=== PATIENT | male | born 1940 | race Caucasian/White ===

== ENCOUNTER → 2016-04-09 | Outpatient (CLI) | payer BC ==
[~2016-04-09] MED LIST: ACET-1256 PO; ASPI81TA28 PO; CLOP1TAB54 PO; DULO-24 PO; LISI-461 PO; LPT/40 PO; METO25TA3 PO; MULT-506 PO; NTRGSL/4 UT; OXYB5TAB74 PO; PRLSR20 PO
[2016-04-09 11:14] LABS: MEAN CELL VOLUME 90.9 fL (80-100); MEAN CORPUSCULAR HEMOGLOBIN 30.9 pg (25-34); MEAN PLATELET VOLUME 9.8 fL (7.4-10.4); PLATELET COUNT 222 K/uL (130-400); WHITE BLOOD COUNT 5.87 K/uL (4.8-10.8)
[2016-04-09 11:53] LABS: ALT/SGPT 27 U/L (12-78); AST/SGOT 20 U/L (15-37); BLOOD UREA NITROGEN 16 mg/dl (7-18); BUN/CREATININE RATIO 17.3 (10-20); CALCIUM 8.6 mg/dl (8.5-10.1); CARBON DIOXIDE 23 mmol/L (21-32); CHLORIDE 110 mmol/L (98-107); CREATININE 0.94 mg/dl (0.60-1.40); GLUCOSE 85 mg/dl (70-99); SODIUM 144 mmol/L (136-145)
[2016-04-09 11:55] LABS: ALB/GLOB RATIO 1.3 (0.9-2); ALKALINE PHOSPHATASE 75 U/L (45-117)
== END | disposition home or self-care (01) ==
LOC: C.LAB1850 09:28
PROVIDERS: ATTEND Internal Medicine Cardiovascular Disease
DX: I10 Essential (primary) hypertension (principal); E78.5 Hyperlipidemia, unspecified; I25.10 Atherosclerotic heart disease of native coronary artery without angina pectoris; I77.810 Thoracic aortic ectasia

== ENCOUNTER → 2016-09-08 | Outpatient (CLI) | payer BC | END | disposition home or self-care (01) | LOC: C.RDSM 10:32 | PROVIDERS: ATTEND Physical Medicine & Rehabilitation Sports Medicine | DX: Z47.1 Aftercare following joint replacement surgery (principal); Z96.653 Presence of artificial knee joint, bilateral ==

== ENCOUNTER → 2016-09-10 | Outpatient (CLI) | payer BC ==
[2016-09-10 12:19] LABS: HEMATOCRIT 41.7 % (42-52); MEAN CELL VOLUME 92.7 fL (80-100); MEAN CORPUSCULAR HEMOGLOBIN 30.2 pg (25-34); MEAN CORPUSCULAR HGB CONC 32.6 g/dl (32-36); MEAN PLATELET VOLUME 9.5 fL (7.4-10.4); PLATELET COUNT 240 K/uL (130-400); WHITE BLOOD COUNT 5.76 K/uL (4.8-10.8)
[2016-09-10 12:36] LABS: ALT/SGPT 29 U/L (12-78); AST/SGOT 20 U/L (15-37); BLOOD UREA NITROGEN 18 mg/dl (7-18); BUN/CREATININE RATIO 18.6 (10-20); CALCIUM 8.9 mg/dl (8.5-10.1); CARBON DIOXIDE 28 mmol/L (21-32); CHLORIDE 109 mmol/L (98-107); CHOLESTEROL 129 mg/dl (0-200); CREATININE 0.98 mg/dl (0.60-1.40); GLUCOSE 87 mg/dl (70-99); POTASSIUM 3.9 mmol/L (3.5-5.1); SODIUM 144 mmol/L (136-145); TRIGLYCERIDES 104 mg/dl (0-150); VERY LOW DENSITY LIPOPROT CALC 21 mg/dl
[2016-09-10 12:41] LABS: CHOLESTEROL/HDL RATIO 2.6; HDL CHOLESTEROL 50 mg/dl; LDL CHOLESTEROL CALCULATED 58 mg/dl
== END ==
LOC: C.LAB1850 09:41
PROVIDERS: ATTEND Internal Medicine Cardiovascular Disease
DX: I10 Essential (primary) hypertension (principal); E78.5 Hyperlipidemia, unspecified; I25.10 Atherosclerotic heart disease of native coronary artery without angina pectoris; I77.810 Thoracic aortic ectasia; I35.1 Nonrheumatic aortic (valve) insufficiency

== ENCOUNTER → 2016-11-18 | Outpatient (CLI) | payer BC ==
--- NOTE | 2016-11-19 05:38 | PAP/PSG TECHNICIAN REPORT ---
[facility] Heavy Forger Polysomnogram Report Study name: None Report date: 11/19/2016 Study date: 11/18/2016 Referring Physician: Wilfrid Mott M.D. Name: TYLER ALMAGUER Interpreting Physician: Michael Mott M.D. Date of : 1940 Heavy Forger: VAZQUEZ Roberson. Sex: Male Age: 76 StudyType: PSG Weight: 252 lbs Height: 76 years, Height 6' 0" Neck Circum: 18 inches BMI: 34.17 Medications: Cymbalta 60 mg, Prilosec 20 mg, Prednisone 5 mg, Metoprolol Succinate 25 mg, Nitrostat 0.4 mg, Lisinopril 10 mg, Lipitor 40 mg, Multi Vitamin, Plavix 75 mg, Aspirin 81 mg, Tylenol Extra Strength 500 mg, Oxybutynin 5 mg Patient History 76 yr. old male here for a possible split night sleep study in room 5. Patient complains of EDS, snoring, dry mouth in the mornings, and morning headaches. ESS 08/23 FOSQ 35/40 Parameters Monitored NPSG: E1-M2, E2-M1, Fp1-M2, Fp2-M1, F3-M2, F4-M2, F4-M1, C3-M2, C4-M2, C4-M1, O1-M2, O2-M2, O2-M1, T3-M2, T4-M1, P3-M2, P4-M1, CHIN1, CHIN2, HR, EKG, Legs, PFLOW, SNOR, FLOW, CFLOW, Tidal Volume, THOR, ABDO, SpO2, PLTH, CPRESS, ETCO2 Wave, ETCO2, pH Sleep Architecture Sleep Stages Time at Lights Off 10:47:16 PM STAGES Time (min.) TST (%) Time at Lights On 5:15:46 AM Wake 143.5 -- Total Recording Time (TRT) 389.50 min. N1 58.5 24 Total Sleep Period (TSP) 358.5 min. N2 158.0 64 Total Sleep Time (TST) 245.0min. N3 0.0 0 Awake Time 144.5 min. REM 28.5 12 Wake after Sleep Onset 114.0 min. Sleep Efficiency (SE) 63 % Sleep Onset Latency (TORO) 29.5 min. Number of Stage 1 Shifts None Awakenings 34 Stage Changes 120 Number of REM periods 8 REM 28.5 12 REM Latency 249.5 min. NREM 216.5 88 Body Position Analysis Supine Right Left Side Prone Vertical Total Sleep Time (min.) 233.6 42.0 55.5 97.50 0.0 0.0 Total Sleep Time (%) 60% 17% 23% 40 0% N/A% Total Sleep Time REM (min.) 16.5 0.0 12.0 None 0.0 0.0 Total Sleep Time NREM (min.) 131.0 42.0 43.5 None 0.0 0.0 Intermittent Wake (min.) 86.1 26.9 30.5 None 0.0 0.0 Total Sleep Period (%) 57% None None None None None Arousals Myoclonus (PLM) * Events Count Index Events Count Index Spontaneous 5 1 Events Awake (PLMW) 332 138.8 Respiratory 10 2.4 Events Asleep w/ Arousal (PLMA) 115 28.2 PLM 113 28 Events Asleep w/o Arousal (PLMS) 727 178.0 Snoring 1 0 Total Asleep 842 206.2 Total 129 32 Total 1,174 181 Respiratory Analysis * CA OA MA CH H RERA Total Count 3 0 2 0 56 2 61 Index 0.7 0.0 0.5 0 13.7 0 15.4 Mean Duration 21.0 0.0 12.5 0.00 23.7 31.3 23.5 Longest Duration 25.3 0.0 13.1 0.00 13.1 31.5 43.4 Respiratory Event Summary Total Supine ~Supine Right Left Prone REM NREM Apneas Count 5 5 0 0 0 N/A 2 3 Index 1.2 2 0 0.0 0.0 N/A 4 1 Hypopneas (4% Desat) Count 56 56 0 0 0 N/A 8 48 Index 13.7 22.8 0 0.0 0.0 N/A 16.8 13.3 Apneas & All Hypopneas Count 61 61 0 0 0 N/A 10 51 Index 14.9 25 0 0 0 N/A 21.1 14.1 Respiratory Events (Glass Blowing Lathe Operator+All Hyp+RERA) Count 61 63 0 0 0 N/A 10 51 Index 15.4 26 0 0.0 0.0 N/A 25.3 14.1 Respiratory Related Arousal Count 10 63 0 0 0 N/A 2 8 Index 2.4 4 0 0 0 N/A 4 2 Snoring Analysis Supine Right Left Prone REM NREM Total Snore duration 1.6 min Snores count 25 12 7 N/A 6 38 44 Snore mean duration 2.1 Sec Snores index 10 17 8 N/A 12.6 10.5 10.8 TST with snoring (%) 0.6% Desaturation Event Summary: Minimum %SpO2 Event Count Mean/Min/Max Duration(sec.) Desaturation Index % Time In Bed > 90 99 31.1 / 9.0 / 60.0 25.6 60.8 86 - 90 35 26.4 / 9.0 / 49.8 14.1 39.2 81 - 85 0 N/A 0.0 0.0 76 - 80 0 N/A 0.0 0.0 71 - 75 0 N/A 0.0 0.0 66 - 70 0 N/A 0.0 0.0 61 - 65 0 N/A 0.0 0.0 56 - 60 0 N/A 0.0 0.0 51 - 55 0 N/A 0.0 0.0 < 50 0 N/A 0.0 0.0 Total REM NREM Awake <50% 0.0 min. 0.0 min. 0.0 min. 0.0 min. 51 - 60% 0.0 min. 0.0 min. 0.0 min. 0.0 min. 61 - 70% 0.0 min. 0.0 min. 0.0 min. 0.0 min. 71 - 80% 0.0 min. 0.0 min. 0.0 min. 0.0 min. 81 - 90% 149.5 min. 9.9 min. 102.8 min. 36.7 min. 91 - 100% 231.7 min. 18.5 min. 112.8 min. 100.3 min. Average 91 91 91 92 Minimum SpO2 82 87 86 82 Desaturation Event Index 15.3 25.3 17.7 9.6 # Desat. Events below 89% 61 9 47 5 Time(%) with Saturation below 89% 12.3 1.0 9.0 2.3 Time(min.) with Saturation below 89% 46.9 3.8 34.5 8.7 Time (mins) REM (mins) NREM (mins) % of TST SpO2 Below 90% 75 12 N63 30.1 SpO2 Below 88% 28 0 0 3 Heart Rate Analysis Min (bpm) Max (bpm) Average (bpm) Awake 54 196 66 NREM 52 78 63 REM 54 70 58 Overall 52 78 63 Supplemental O2 Values Minimum O2 level: None Value Start Time End Time Heavy Forger Comments Mr. Almaguer slept in the right, left, and supine positions. Cardiac arrhythmia noted and constant PLMs noted. No bruxism noted. Snoring was noted and scored as a 1 on a scale of 0 through 5. (0=no snoring, 5=snoring loud enough to be heard through a closed door or down the [address]) Mr. Almaguer did not wake to use the restroom during the night. Mr. Almaguer stated, I did not sleep as well as I do when I am in my own bed. The final report will be interpreted and signed by a sleep physician. The completed physician report will then be placed in the patient medical record. Therapy (cm H2O) 0 TIB (min.) 388.5 TST (min.) 245.0 Sleep Onset (min.) 29.5 REM Onset From Sleep (min.) 249.5 Sleep Efficiency % 63 Wakefulness (%) 37 Wakefulness (min.) 144.5 NREM 1 (%) 24 NREM 1 (min.) 58.5 NREM 2 (%) 64 NREM 2 (min.) 158.0 NREM 3 (%) 0 NREM 3 (min.) 0.0 REM (%) 12 REM (min.) 28.5 # Arousals 129 Arousal Index 32 # Snore 44 Snore Index 10.8 AHI 14.9 AHI Supine 25 AHI Non-Supine 0 NREM AHI 14.1 REM AHI 21.1 RDI 15.4 # Obstructive Apnea 0 # Central Apnea 3 # Mixed Apnea 2 # Hypopneas 56 RERAs 2 Total Respiratory Events 70 Time Below SpO2 89% (min.) 38.3 Mean NREM SpO2 (%) 91 Mean REM SpO2 (%) 91 Mean Sleep SpO2 (%) 91 Min NREM SpO2 (%) 86 Min REM SpO2 (%) 87 Position Supine (min.) 233.6 Position Non-supine (min.) 97.5 LM Index Sleep 206.2 LM Index NREM 213.4 LM Index REM 151.6 Mean Heart Rate (bpm) 63 Min Heart Rate (bpm) 52 18
--- NOTE | 2016-12-04 09:10 | POLYSOMNOGRAPH REPORT ---
REFERRING PERSON: Dr. Anuel Mott. [employer] SAWYER: Bibiana Nelson. Mr. Gomez is a 76-year-old male sent for a possible split night sleep study. He complains of snoring, dry mouth in the morning, excessive daytime sleepiness and morning headaches. His Chandler sleepiness scale score on the evening of this study is 6. BMI is 34.17. Following the technical and digital specifications of the [employer] (AASM) a standard diagnostic polysomnogram was performed monitoring EEG, EOG, EMG (chin and leg deviations), oxygen saturation, body position, digital video, respiratory effort and airflow. The sleep Stage and event scoring was based on the AASM Manual for the Scoring of Sleep and Associated Events 2007 edition. Apneas are defined as a drop in the peak thermal sensor excursion by >90% of baseline for at least 10 seconds. Hypopneas were scored using the 4% oxygen desaturation rule (4A-[employer]) and a decrease in the nasal pressure excursions by >30% of baseline for at least 10 seconds. Respiratory effort-related arousal (RERA's) is defined as a sequence of breaths lasting at least 10 seconds characterized by increasing respiratory effort or flattening of the nasal pressure waveform leading to an arousal from sleep when the sequence of breaths does not meet criteria for an apnea or hypopnea. Apnea Hypopnea index (AHI) is defined as the number of apneas and hypopneas occurring in an hour of sleep. Respiratory disturbance index (RDI) is defined as the number of apneas, hypopneas, and RERA's occurring in an hour of sleep. Mr. Gomez's total sleep period time was 358.5 minutes. Total sleep time was 245 minutes. Sleep efficiency was 63%. Latency to sleep onset was 29.5 minutes with wake after sleep onset of 114 minutes. Total non-REM sleep time was 216.5 minutes. He spent 24% of that time in N1 sleep, 64% in N2 sleep and no time in N3 sleep. REM latency was 249.5 minutes. Total REM sleep time was 28.5 minutes or 12% of total sleep time. There were 129 cortical arousals from sleep. One of these arousals was due to snoring, 113 were due to periodic limb movements and 10 were due to respiratory events. The remaining 5 were spontaneous. There were 842 periodic limb movements noted on this test. Limb movement index was 206.2. Limb movement with arousal index was 28.2. This may be significant, but in light of sleep disordered breathing on the study, it may be secondary to that. There were 3 central, no obstructive, and 2 mixed apnea on this test. There were 56 hypopneas. Apnea-hypopnea index was 14.9. This is consistent with mild to moderate sleep apnea. Supine AHI was 25. REM AHI was 21.1. There were 44 snoring events recorded on this test. Total sleep time with snoring was 0.6%. Mean saturation was 91% with desaturations to 82%. Saturations were less than 89% for 46.9 minutes of recorded time. There was no cardiac ectopy noted on this study. Heart rates ranged from a low of 52 beats per minute to a high of 78 beats per minute. IMPRESSION AND PLAN: A 76-year-old male with mild to moderate sleep apnea and significant nocturnal hypoxemia on this study. 1. The patient would likely benefit from positive airway pressure therapy. He should return to the sleep lab for a full night titration and then based on those results, he will be started on an equipment at home. A download from his machine can be reviewed in 1 month both to check compliance as well as AHI and further pressure adjustments can occur at that time. 2. Should this sleep disordered breathing and nocturnal hypoxemia be treated and this patient continued to have excessive daytime sleepiness, this patient may benefit from treatment of his periodic limb movements of sleep as they did cause significant arousals. He should decrease on titration study as the sleep disorder breathing decreases. [facility]
== END | disposition home or self-care (01) ==
LOC: C.NEUR 21:00
PROVIDERS: ATTEND Family Medicine
DX: G47.33 Obstructive sleep apnea (adult) (pediatric) (principal); R06.83 Snoring; G47.10 Hypersomnia, unspecified

== ENCOUNTER → 2017-04-27 | Outpatient (CLI) | payer BC ==
[~2017-04-27] MED LIST changes: +DTR/5 PO; -OXYB5TAB74 PO
[2017-04-27 11:57] LABS: HEMATOCRIT 41.2 % (42-52); HEMOGLOBIN 13.6 g/dL (14.0-18.0); MEAN CELL VOLUME 91.4 fL (80-100); MEAN CORPUSCULAR HEMOGLOBIN 30.2 pg (25-34); MEAN PLATELET VOLUME 10.2 fL (7.4-10.4); PLATELET COUNT 230 K/uL (130-400); RED CELL DISTRIBUTION WIDTH CV 14.5 % (11.5-14.5); RED CELL DISTRIBUTION WIDTH SD 48.7 fL (36.4-46.3); WHITE BLOOD COUNT 6.07 K/uL (4.8-10.8)
[2017-04-27 12:08] LABS: ALT/SGPT 29 U/L (12-78); AST/SGOT 18 U/L (15-37); BLOOD UREA NITROGEN 17 mg/dl (7-18); CALCIUM 8.9 mg/dl (8.5-10.1); CARBON DIOXIDE 27 mmol/L (21-32); GLUCOSE 84 mg/dl (70-99); POTASSIUM 3.7 mmol/L (3.5-5.1); SODIUM 142 mmol/L (136-145)
== END | disposition home or self-care (01) ==
LOC: C.LAB1850 09:56
PROVIDERS: ATTEND Internal Medicine Cardiovascular Disease
DX: I10 Essential (primary) hypertension (principal); E78.5 Hyperlipidemia, unspecified; I25.10 Atherosclerotic heart disease of native coronary artery without angina pectoris; R53.83 Other fatigue; I77.810 Thoracic aortic ectasia; I35.1 Nonrheumatic aortic (valve) insufficiency

== ENCOUNTER 2022-03-23 12:32 | Inpatient (IN) ==
[2022-03-23] MEDS ORDERED: ONDANSETRON INJ 2 MG/ML 2 ML VIAL IV STA (12:54)
[2022-03-23] MEDS ORDERED: MoRPHine SULFATE 4 MG/ML 1 ML CARP\\VIAL IV STA (12:54)
[2022-03-23] MEDS ORDERED: SODIUM CHLORIDE 0.9% 1000ML 1,000 ML IV STA (12:54)
--- NOTE | 2022-03-23 13:08 | Emergency Department Note ---
Impression & Plan Intractable nausea and vomiting, Dizziness ADMIT ED Provider Note HPI: The patient is a 81-year-old male who presents the emergency department chief complaint of intractable nausea and vomiting. Patient was seen here on 18 March for similar symptoms, at that time CT imaging of the abdomen pelvis was within normal limits and patient was ultimately discharged home. Patient was recently admitted this past January to [facility] where he had surgery on his lumbar spine, inpatient admission was complicated by pulmonary embolism for which the patient received a thrombectomy and IVC filter, he is currently on anticoagulation with Eliquis. On arrival here to the ED the patient is alert, he is in no acute distress on my initial evaluation, states he has had difficulty with p.o. intake since about last Thursday (1 week ago). He states his symptoms seem to have improved somewhat on and Thursday and that it worsened over the weekend. On arrival here to the ED the patient does not display any focal deficits, he is hemodynamically stable and otherwise in no acute distress. ROS: - Per HPI *Outpatient medications and allergy history reviewed. *Pertinent external medical records reviewed. 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, there is slight ataxia on the right side on [id number] testing, left side intact 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: - An order was placed for continuous cardiac monitoring - Patient was noted to be in sinus rhythm with a rate of 80 EKG: (As interpreted by myself): Rate: 84 Rhythm: Normal sinus rhythm Intervals: QTC prolongation at 503 ms, otherwise within normal limits ST changes: No ST elevation Time: 1301 Interventions provided in ED: -Meclizine, IV fluid bolus, IV morphine, IV Zofran NIH STROKE SCALE: 1A: Level of consciousness Alert; keenly responsive 0 1B: Ask month and age Both questions right 0 1C: 'Blink eyes' & 'squeeze hands' Performs both tasks 0 2: Horizontal extraocular movements Normal 0 3: Visual shaver No visual loss 0 4: Facial palsy Normal symmetry 0 5A: Left arm motor drift No drift for 10 seconds 0 5B: Right arm motor drift No drift for 10 seconds 0 6A: Left leg motor drift No drift for 5 seconds 0 6B: Right leg motor drift No drift for 5 seconds 0 7: Limb Ataxia Ataxia in 1 Limb +1 8: Sensation Normal; no sensory loss 0 9: Language/aphasia Normal; no aphasia 0 10: Dysarthria Normal 0 11: Extinction/inattention No abnormality 0 TOTAL NIH SCORE = 1 Medical Decision Making: Patient presented to the emergency department chief complaint of nausea and vomiting this is ongoing for about the past week. Patient also states he has had some dizziness. This was a complaint as well on 03/18, CT imaging of the head at that time was negative. On my examination here in the ED, patient did display some ataxia on [id number] testing on the right side. He states his symptoms of dizziness are mostly positional in nature, does mention specifically that when he gets out of bed too quickly or when he rolls from one side to the other his symptoms seem to acutely worsen and worsen his nausea as well. CT imaging of the abdomen pelvis was obtained that does not show any evidence of any acute surgical process, no evidence of bowel obstruction. Patient's lab work does not show any BRITTON, there is ketonuria, he does have a slight metabolic acidosis likely secondary to his fluid losses. On my reassessment patient states he is feeling much improved following IV fluids here in the ED, his is very concerned about his intractable nausea and vomiting in addition to his dizziness recently, CT imaging of the head on 03/18 was reassuring however given the persistence of his symptoms I did discuss MRI imaging to rule out possible central process for his dizziness as well as nausea and vomiting such as posterior circulation stroke. He would not be a candidate for aggressive therapy at this point as he has been symptomatic for about the past 7 days. They would like to proceed with MRI imaging. MRI was therefore ordered. Patient's family states that he has not been doing well since he left [facility], his symptoms have markedly worsened since this past Thursday, continues with dizziness, nausea and vomiting, they state that he is not able to ambulate well at home and can only go short distances with his walker. Patient's and daughter at the bedside states that they do not feel that they are able to take care of him appropriately at home and he would benefit from PT/OT and admission regardless of MRI result. He states he does feel improved following IV fluids, meclizine, as well as morphine and Zofran. Of note, his urinalysis does not show any evidence of infection. Case was therefore discussed with the on-call hospitalist service for [facility] in [place]. Patient was placed for admission in stable condition. Disposition discussion held by myself with: Patient, at the bedside, daughter at the bedside Diagnosis: 1. Intractable nausea and vomiting 2. Episodic vertigo 3. Ambulatory dysfunction 4. Ketonuria 5. Metabolic acidosis, mild Disposition: ADMIT Jose Luis Victoria, DO Emergency Medicine Past Med/Surg History Medical History Anemia Aortic regurgitation CAD (coronary artery disease) Dilated aortic root Diverticulosis GERD (gastroesophageal reflux disease) History of myocardial infarction 01/2011 - follows w/ Dr. Macdonald History of nephritis as a child Hyperlipidemia Hypertension Idiopathic peripheral neuropathy Irregular heart beat Obesity Obstructive sleep apnea CPAP Osteoarthritis Overactive bladder Peripheral neuropathy Pulmonary embolus Seizure-like activity 35 years ago - 2 convulsive episodes following outpatient surgery (excision pilonidal cyst) -- says he followed with neurologist x 6 months; seizure work up was neg -- no issues since Spinal stenosis cervical and lumbar Surgical History History of anesthesia reaction 35 years ago - 2 convulsive episodes following outpatient surgery (excision pilonidal cyst) -- says he followed with neurologist x 6 months; seizure work up was neg -- no issues since History of arthroscopy of both knees History of cardiac cath 2010 - [facility] - stents x 2 History of colonoscopy History of excision of mass Rt axillary - benign History of heart artery stent x 2 History of surgical removal of pilonidal cyst History of thumb surgery Rt Hx of laminectomy S/p bilateral carpal tunnel release S/P left rotator cuff repair S/P tonsillectomy S/P total knee arthroplasty BL Family History Father Gastric cancer PONV (postoperative nausea and vomiting) Mother Lymphoma Colon cancer Brother Prostate cancer PONV (postoperative nausea and vomiting) Social History Smoking Status: Former smoker Tobacco Type: Cigars Second Hand Exposure: No; Hx Alcohol Use: Yes Alcohol type: beer Hx Substance Use: No Preferred Language: Citizen Of [place] Communication Ability: Effective 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 Beliefs That Will Affect Care: None marital status: Current Living Situation: Spouse current occupational status: retired Feels Safe at Home: Yes Assistive Devices: Cane, CPAP and Glasses Allergies Allergies Allergy/AdvReac Type Severity Reaction Status Date / Time Sulfa (Sulfonamide Allergy Intermediate rash Verified 03/23/22 16:15 Antibiotics) Home Meds Home Medications Medication Instructions Recorded Confirmed amoxicillin 500 mg capsule 2,000 mg PO DIRECTED PRN DENTAL 11/20/18 03/23/22 APPOINTMENTS duloxetine 60 mg capsule,delayed 60 mg PO QAM 11/20/18 03/23/22 release metoprolol succinate 25 mg 25 mg PO QAM #90 tabs 11/20/18 03/23/22 tablet,extended release 24 hr nitroglycerin 0.4 mg sublingual 0.4 mg sublingual Q5M PRN chest 11/20/18 03/23/22 tablet pain #25 tabs multivitamin (Daily Multi-Vitamin 1 tab PO QAM 01/03/19 03/23/22 tablet) pantoprazole 40 mg tablet,delayed 40 mg PO QAM 05/18/20 03/23/22 release finasteride 5 mg tablet 5 mg PO QAM 09/05/21 03/23/22 acetaminophen 500 mg tablet 500 mg PO AMHS 11/15/21 03/23/22 (Tylenol Extra Strength) clopidogrel 75 mg tablet 75 mg PO QAM 02/15/22 03/23/22 tizanidine 4 mg tablet 4 mg PO DIRECTED PRN MUSCLE 02/15/22 03/23/22 SPASMS apixaban 5 mg tablet (Eliquis) 5 mg PO BID 03/18/22 03/23/22 diclofenac sodium 1 % topical gel 2 g topical QID 03/18/22 03/23/22 lisinopril 5 mg tablet 5 mg PO QAM 03/18/22 03/23/22 melatonin 3 mg tablet 3 mg PO HS 03/18/22 03/23/22 scopolamine base 1 mg over 3 days 1 patch transdermal Q3D PRN 03/18/22 03/23/22 transdermal patch NEEDED atorvastatin 40 mg tablet 40 mg PO HS 03/23/22 03/23/22 Previous Rx's Medication Instructions Recorded ondansetron 4 mg disintegrating 4 mg PO Q8H PRN nausea and 03/18/22 tablet vomiting #30 tabs Results & Data (ED) Vital Signs Vital Signs - 24 hr 03/23/22 12:42 03/23/22 13:09 03/23/22 12:38 Temperature 36.7 C Temperature Source Oral Pulse Rate 98 H 96 H Pulse Rate from SpO2 Sensor 96 H Pulse Rhythm Regular Pulse Strength Normal Respiratory Rate 30 H 18 Respiratory Effort / Characteristics Non-Labored Spontaneous Respiratory Depth Normal Respiratory Pattern Regular Blood Pressure Blood Pressure Mean Pulse Oximetry 97 98 98 Oxygen Delivery Method Room Air Room Air Oxygen Flow Rate 0 Sepsis Recent Fever Within 48 Hours No Sepsis New/Unexplained Change in Mental Status N/A Sepsis Action Taken by Nursing No Action Required 03/23/22 13:00 03/23/22 13:30 03/23/22 14:00 Temperature Temperature Source Pulse Rate 88 80 84 Pulse Rate from SpO2 Sensor 83 85 Pulse Rhythm Pulse Strength Respiratory Rate 31 H 14 14 Respiratory Effort / Characteristics Respiratory Depth Respiratory Pattern Blood Pressure Blood Pressure Mean Pulse Oximetry 98 93 Oxygen Delivery Method Oxygen Flow Rate Sepsis Recent Fever Within 48 Hours Sepsis New/Unexplained Change in Mental Status Sepsis Action Taken by Nursing 03/23/22 14:30 03/23/22 14:36 03/23/22 14:36 Temperature Temperature Source Pulse Rate 81 87 Pulse Rate from SpO2 Sensor 81 85 Pulse Rhythm Pulse Strength Respiratory Rate 14 19 Respiratory Effort / Characteristics Respiratory Depth Respiratory Pattern Blood Pressure 124/85 Blood Pressure Mean 98 Pulse Oximetry 93 97 Oxygen Delivery Method Oxygen Flow Rate Sepsis Recent Fever Within 48 Hours Sepsis New/Unexplained Change in Mental Status Sepsis Action Taken by Nursing 03/23/22 15:00 03/23/22 15:00 03/23/22 15:30 Temperature Temperature Source Pulse Rate 81 Pulse Rate from SpO2 Sensor 82 Pulse Rhythm Pulse Strength Respiratory Rate 17 Respiratory Effort / Characteristics Respiratory Depth Respiratory Pattern Blood Pressure 145/80 H 127/82 Blood Pressure Mean 101 97 Pulse Oximetry 97 Oxygen Delivery Method Oxygen Flow Rate Sepsis Recent Fever Within 48 Hours Sepsis New/Unexplained Change in Mental Status Sepsis Action Taken by Nursing 03/23/22 15:30 03/23/22 16:00 03/23/22 16:00 Temperature Temperature Source Pulse Rate 87 86 Pulse Rate from SpO2 Sensor 87 Pulse Rhythm Pulse Strength Respiratory Rate 20 17 Respiratory Effort / Characteristics Respiratory Depth Respiratory Pattern Blood Pressure 137/84 Blood Pressure Mean 101 Pulse Oximetry 99 Oxygen Delivery Method Oxygen Flow Rate Sepsis Recent Fever Within 48 Hours Sepsis New/Unexplained Change in Mental Status Sepsis Action Taken by Nursing 03/23/22 16:30 03/23/22 16:31 03/23/22 16:31 Temperature Temperature Source Pulse Rate 87 85 Pulse Rate from SpO2 Sensor Pulse Rhythm Pulse Strength Respiratory Rate 13 14 Respiratory Effort / Characteristics Respiratory Depth Respiratory Pattern Blood Pressure 98/52 L Blood Pressure Mean 67 Pulse Oximetry Oxygen Delivery Method Oxygen Flow Rate Sepsis Recent Fever Within 48 Hours Sepsis New/Unexplained Change in Mental Status Sepsis Action Taken by Nursing Laboratory Data 03/23/22 12:45 03/23/22 12:45 Lab Results 03/23/22 03/23/22 03/23/22 Range/Units 12:45 12:45 13:30 WBC 5.61 (4.8-10.8) K/ul RBC 4.02 L (4.63-6.08) M/uL Hgb 12.0 L (14.0-18.0) g/dl Hct 34.7 L (40.1-51.0) % MCV 86.3 (80.0-100.0) fL MCH 29.9 (25.0-34.0) pg MCHC 34.6 (32.0-36.0) g/dL RDW Std Deviation 44.2 (36.4-46.3) fL RDW Coeff of Ifeanyi 14.2 (11.5-14.5) % Plt Count 241 (130-400) K/uL MPV 9.4 (9.4-12.4) fL Immature Gran % (Auto) 0.7 % Neut % (Auto) 62.6 % Lymph % (Auto) 24.8 % [place] % (Auto) 10.0 % Eos % (Auto) 1.4 % Baso % (Auto) 0.5 % Neut # (Auto) 3.51 (1.4-6.5) K/uL Lymph # (Auto) 1.39 (1.2-3.4) K/uL [place] # (Auto) 0.56 (0.24-0.82) K/uL Eos # (Auto) 0.08 (0-0.50) K/uL Baso # (Auto) 0.03 (0-0.2) K/uL Immature Gran # (Auto) 0.04 H (0.00-0.02) K/uL Sodium 139 (136-145) mmol/L Potassium 3.6 (3.5-5.1) mmol/L Chloride 107 (98-107) mmol/L Carbon Dioxide 19 L (21-32) mmol/L Anion Gap 13 H (3-11) BUN 12 (6-23) mg/dl Creatinine 0.87 (0.6-1.4) mg/dl Est Cr Clr Drug Dosing 85.9 ml/min Est GFR ( Amer) 95.1 ml/min Est GFR (Non-Af Amer) 82.1 ml/min BUN/Creatinine Ratio 13.8 (10-20) Glucose 110 H (70-99(Fasting)) mg/dl Lactate (0.4-2.0) mmol/L Calcium 9.0 (8.5-10.1) mg/dl Total Bilirubin 0.9 (0.2-1.0) mg/dl AST 17 (13-39) U/L ALT 14 (7-52) U/L Alkaline Phosphatase 85 (34-104) U/L Troponin I High Sens 16.3 (0-20) pg/ml Total Protein 6.2 (6.0-8.3) gm/dl Albumin 3.9 (3.4-5.0) gm/dl Globulin 2.3 L (2.5-4.0) gm/dl Albumin/Globulin Ratio 1.7 (0.9-2) Lipase 22 (11-82) U/L Urine Color Dark Yellow Urine Appearance Clear (Clear) Urine pH 6.5 (4.5-7.5) Ur Specific [place] 1.023 (1.000-1.030) Urine Protein 1+ H (Negative) Urine Glucose (UA) Negative (Negative) Urine Ketones 3+ H (Negative) Urine Blood Negative (Negative) Urine Nitrite Negative (Negative) Urine Bilirubin Negative (Negative) Urine Urobilinogen Negative (Negative) Ur Leukocyte Esterase 1+ H (Negative) Urine WBC (Auto) 10-30 H (0-5) /hpf Urine RBC (Auto) 0-4 (0-4) /hpf U Hyaline Cast (Auto) 1-5 (0-5) /lpf U Epithel Cells (Auto) 5-10 H (0-5) /lpf Urine Bacteria (Auto) 1+ H (Negative) Ur Renal Epithelial Cell Not Reportable Urine Mucus Present A (None Prsent) SARS-CoV-2, RNA, NAAT (NEGATIVE) 03/23/22 03/23/22 Range/Units 14:51 16:14 WBC (4.8-10.8) K/ul RBC (4.63-6.08) M/uL Hgb (14.0-18.0) g/dl Hct (40.1-51.0) % MCV (80.0-100.0) fL MCH (25.0-34.0) pg MCHC (32.0-36.0) g/dL RDW Std Deviation (36.4-46.3) fL RDW Coeff of Ifeanyi (11.5-14.5) % Plt Count (130-400) K/uL MPV (9.4-12.4) fL Immature Gran % (Auto) % Neut % (Auto) % Lymph % (Auto) % [place] % (Auto) % Eos % (Auto) % Baso % (Auto) % Neut # (Auto) (1.4-6.5) K/uL Lymph # (Auto) (1.2-3.4) K/uL [place] # (Auto) (0.24-0.82) K/uL Eos # (Auto) (0-0.50) K/uL Baso # (Auto) (0-0.2) K/uL Immature Gran # (Auto) (0.00-0.02) K/uL Sodium (136-145) mmol/L Potassium (3.5-5.1) mmol/L Chloride (98-107) mmol/L Carbon Dioxide (21-32) mmol/L Anion Gap (3-11) BUN (6-23) mg/dl Creatinine (0.6-1.4) mg/dl Est Cr Clr Drug Dosing ml/min Est GFR ( Amer) ml/min Est GFR (Non-Af Amer) ml/min BUN/Creatinine Ratio (10-20) Glucose (70-99(Fasting)) mg/dl Lactate 1.0 (0.4-2.0) mmol/L Calcium (8.5-10.1) mg/dl Total Bilirubin (0.2-1.0) mg/dl AST (13-39) U/L ALT (7-52) U/L Alkaline Phosphatase (34-104) U/L Troponin I High Sens (0-20) pg/ml Total Protein (6.0-8.3) gm/dl Albumin (3.4-5.0) gm/dl Globulin (2.5-4.0) gm/dl Albumin/Globulin Ratio (0.9-2) Lipase (11-82) U/L Urine Color Urine Appearance (Clear) Urine pH (4.5-7.5) Ur Specific [place] (1.000-1.030) Urine Protein (Negative) Urine Glucose (UA) (Negative) Urine Ketones (Negative) Urine Blood (Negative) Urine Nitrite (Negative) Urine Bilirubin (Negative) Urine Urobilinogen (Negative) Ur Leukocyte Esterase (Negative) Urine WBC (Auto) (0-5) /hpf Urine RBC (Auto) (0-4) /hpf U Hyaline Cast (Auto) (0-5) /lpf U Epithel Cells (Auto) (0-5) /lpf Urine Bacteria (Auto) (Negative) Ur Renal Epithelial Cell Urine Mucus (None Prsent) SARS-CoV-2, RNA, NAAT NEGATIVE (NEGATIVE) Administered Medications Discontinued Medications Sodium Chloride (Nss 1000ml) 1,000 mls @ 999 mls/hr IV .Q1H1M STA Stop: 03/23/22 13:54 Last Infusion: 03/23/22 14:15 Dose: 0 mls/hr Documented By: Admin: 03/23/22 13:04 Dose: 999 mls/hr Documented By: AM Ioversol (Optiray 350 100ml) 91 ml IV ONCE ONE Stop: 03/23/22 14:12 Last Admin: 03/23/22 14:12 Dose: 91 ml Documented By: ALISA Meclizine HCl (Meclizine Hcl 25 Mg Tab) 25 mg PO NOW STA Stop: 03/23/22 15:13 Last Admin: 03/23/22 15:41 Dose: 25 mg Documented By: AM Morphine Sulfate (Morphine Sulfate 4 Mg/Ml 1 Ml Carp\Vial) 4 mg IV NOW STA Stop: 03/23/22 12:55 Last Admin: 03/23/22 13:03 Dose: 4 mg Documented By: AM Ondansetron HCl (Ondansetron Inj 2 Mg/Ml 2 Ml Vial) 4 mg IV NOW STA Stop: 03/23/22 12:55 Last Admin: 03/23/22 13:01 Dose: 4 mg Documented By: AM Imaging Data Radiologist's Impression: Abdomen/Pelvis CT 03/23/22 13:[address] WITH IV CONTRAST CT DOSE: 706.87 mGy.cm HISTORY: Acute abdominal pain with nausea and vomiting N/V, worsening this week TECHNIQUE: Multiaxial CT images of the abdomen and pelvis were performed following the IV administration of 91 cc of Optiray, A dose lowering technique was utilized adhering to the principles of ALARA. COMPARISON STUDY: March 18, 2022 FINDINGS: Coronary artery calcifications. Mild subsegmental bibasilar atelectasis versus scarring. No pneumatosis or pneumoperitoneum. Calcified gran uloma of the basal left lower lobe. Unremarkable spleen, mildly trophic pancreas and adrenal glands. The gallbladder is within normal limits. Unchanged appearance of the liver. Indeterminate ill-defined 1.4 cm hypodense lesion of the right hepatic lobe on image 16 series 2 with hepatic dome cysts. Patency of the hepatic and portal veins. There are a few cysts of the bilateral kidneys redemonstrated along with several punctate nonobstructing bilateral renal calculi. There is an enhancing 1.8 cm mass the interpolar aspect of the right kidney laterally. No ureteral calculi or hydronephrosis. Decompressed or bladder with wall thickening and Rankin catheter in place. Air is also noted within the urinary bladder lumen. Prostamegaly. Mild perivesicular stranding. Atherosclerosis of the aorta. Infrarenal IVC filter. No lymphadenopathy identified. Tiny hiatal hernia. No bowel obstruction or bowel wall thickening. Colonic diverticulosis. The appendix is not well visualized. No secondary signs of acute appendicitis. Laminectomy changes of the lumbar spine redemonstrated at L2-L5. Fluid collection within the operative bed. Similar to the prior study measuring up to 14.5 cm in craniocaudal dimension. Unchanged grade 1 anterolisthesis L4 on L5 with chronic pars defects. IMPRESSION: 1. Stable exam compared to the 03/18/2022 study. 2. Rankin catheter within a decompressed or bladder again noted. Prostamegaly with urinary bladder wall thickening is again suggestive of chronic bladder outlet obstruction. Correlate with urinalysis to exclude cystitis. 3. No bowel obstruction or bowel wall thickening. 4. 1.8 cm right renal lesion suggestive of renal cell carcinoma again noted. 5. Nonobstructing bilateral nephrolithiasis. ACT 112: Negative or not required by law. The above report was generated using voice recognition software. It may contain grammatical, syntax or spelling errors. Electronically signed by: Jameson Stratton M.D. 03/23/2022 2:38 PM Discharge Plan Visit Data Chief Complaint: Vomiting Stated Complaint: NAUSEA, VOMITING ED Provider: Jose Luis Victoria Discharge Problem: Intractable nausea and vomiting, Dizziness Forms Stand Alone Forms: [facility] [place] FriendCode Prescriptions Prescriptions: No Action acetaminophen [Tylenol Extra Strength] 500 mg tablet 500 mg PO AMHS nitroglycerin 0.4 mg tablet, sublingual 0.4 mg SL Q5M PRN (Reason: chest pain) Qty: 25 duloxetine 60 mg capsule,delayed release(DR/EC) 60 mg PO QAM metoprolol succinate 25 mg tablet extended release 24 hr 25 mg PO QAM Qty: 90 amoxicillin 500 mg capsule 2,000 mg PO DIRECTED PRN (Reason: DENTAL APPOINTMENTS) multivitamin [Daily Multi-Vitamin] tablet 1 tab PO QAM pantoprazole 40 mg Tablet,Delayed Release (Dr/Ec) 40 mg PO QAM finasteride 5 mg tablet 5 mg PO QAM tizanidine 4 mg tablet 4 mg PO DIRECTED PRN (Reason: MUSCLE SPASMS) clopidogrel 75 mg tablet 75 mg PO QAM melatonin 3 mg Tablet 3 mg PO HS lisinopril 5 mg tablet 5 mg PO QAM scopolamine base 1 mg over 3 days Patch 3 Day 1 patch TRANSDERMAL Q3D PRN (Reason: NEEDED) diclofenac sodium [Voltaren] 1 % Gel 2 g TOPICAL QID Eliquis 5 mg tablet 5 mg PO BID ondansetron 4 mg tablet,disintegrating 4 mg PO Q8H PRN (Reason: nausea and vomiting) Qty: 30 0RF atorvastatin 40 mg tablet 40 mg PO HS Referrals Referrals: Chidi Steele DO [Primary Care Provider] -
[2022-03-23 13:18] LABS: Basophils # (auto) 0.03 K/uL (0-0.2); Basophils % (auto) 0.5 %; Eosinophils # (auto) 0.08 K/uL (0-0.50); Eosinophils % (auto) 1.4 %; Hematocrit (blood only) 34.7 % (40.1-51.0); Immature Granulocytes # (auto) 0.04 K/uL (0.00-0.02); Immature Granulocytes % (auto) 0.7 %; Lymphocytes # (auto) 1.39 K/uL (1.2-3.4); Lymphocytes % (auto) 24.8 %; Mean Corpuscular Hemoglobin 29.9 pg (25.0-34.0); Mean Corpuscular Hgb Conc 34.6 g/dL (32.0-36.0); Mean Corpuscular Volume 86.3 fL (80.0-100.0); Mean Platelet Volume 9.4 fL (9.4-12.4); Monocytes # (auto) 0.56 K/uL (0.24-0.82); Neutrophils # (auto) 3.51 K/uL (1.4-6.5); Neutrophils % (auto) 62.6 %; Platelet Count 241 K/uL (130-400); RDW Coefficient of Variation 14.2 % (11.5-14.5); RDW Standard Deviation 44.2 fL (36.4-46.3); Red Blood Count 4.02 M/uL (4.63-6.08); White Blood Count 5.61 K/ul (4.8-10.8)
[2022-03-23 13:36] LABS: Albumin Level 3.9 gm/dl (3.4-5.0); Bilirubin,Total 0.9 mg/dl (0.2-1.0); Potassium 3.6 mmol/L (3.5-5.1)
[2022-03-23 13:42] LABS: Albumin Globulin Ratio 1.7 (0.9-2); BUN Creatinine Ratio 13.8 (10-20); Creatinine Clr Calc Pharmacy 85.9 ml/min; Est GFR (African American) 95.1 ml/min; Est GFR (Non-African American) 82.1 ml/min; Globulin 2.3 gm/dl (2.5-4.0); Total Protein 6.2 gm/dl (6.0-8.3)
[2022-03-23 13:43] LABS: Appearance Urine Clear (Clear); Bilirubin Urine Negative (Negative); Blood Urine Negative (Negative); Color Urine Dark Yellow; Glucose Urine UA Negative (Negative); Ketones Urine 3+ (Negative); Leukocyte Esterase Urine 1+ (Negative); Nitrite Urine Negative (Negative); Protein Urine 1+ (Negative); Specific Gravity Urine 1.023 (1.000-1.030); Urobilinogen Urine Negative (Negative); pH Urine 6.5 (4.5-7.5)
[2022-03-23 13:48] LABS: Troponin I High Sensitivity 16.3 pg/ml (0-20)
[2022-03-23 13:55] LABS: Bacteria Urine Automated 1+ (Negative); Mucus Urine Present (None Prsent); RBC Urine Automated 0-4 /hpf (0-4)
[2022-03-23] MEDS ORDERED: OPTIRAY 350 100ml IV ONE (14:11)
--- NOTE | 2022-03-23 14:40 | CT Scan Report ---
ABDOMEN AND PELVIS CT WITH IV CONTRAST CT DOSE: 706.87 mGy.cm HISTORY: Acute abdominal pain with nausea and vomiting N/V, worsening this week TECHNIQUE: Multiaxial CT images of the abdomen and pelvis were performed following the IV administrat ion of 91 cc of Optiray, A dose lowering technique was utilized adhering to the principles of ALARA. COMPARISON STUDY: March 18, 2022 FINDINGS: Coronary artery calcifications. Mild subsegmental bibasilar atelectasis versus scarring. No pneumatosis or pneumoperitoneum. Calcified granuloma of the basal left lower lobe. Unremarkable sple en, mildly trophic pancreas and adrenal glands. The gallbladder is within normal limits. Unchanged ap pearance of the liver. Indeterminate ill-defined 1.4 cm hypodense lesion of the right hepatic lobe on image 16 series 2 with hepatic dome cysts. Patency of the hepatic and portal veins. There are a few cysts of the bilateral kidneys redemonstrated along with several punctate nonobstruct ing bilateral renal calculi. There is an enhancing 1.8 cm mass the interpolar aspect of the right kid kari laterally. No ureteral calculi or hydronephrosis. Decompressed or bladder with wall thickening an d Rankin catheter in place. Air is also noted within the urinary bladder lumen. Prostamegaly. Mild per ivesicular stranding. Atherosclerosis of the aorta. Infrarenal IVC filter. No lymphadenopathy identif ied. Tiny hiatal hernia. No bowel obstruction or bowel wall thickening. Colonic diverticulosis. The append ix is not well visualized. No secondary signs of acute appendicitis. Laminectomy changes of the lumba r spine redemonstrated at L2-L5. Fluid collection within the operative bed. Similar to the prior stud y measuring up to 14.5 cm in craniocaudal dimension. Unchanged grade 1 anterolisthesis L4 on L5 with chronic pars defects. IMPRESSION: 1. Stable exam compared to the 03/18/2022 study. 2. Rankin catheter within a decompressed or bladder again noted. Prostamegaly with urinary bladder wal l thickening is again suggestive of chronic bladder outlet obstruction. Correlate with urinalysis to exclude cystitis. 3. No bowel obstruction or bowel wall thickening. 4. 1.8 cm right renal lesion suggestive of renal cell carcinoma again noted. 5. Nonobstructing bilateral nephrolithiasis. ACT 112: Negative or not required by law. The above report was generated using voice recognition software. It may contain grammatical, syntax o r spelling errors. Electronically signed by: Jameson Stratton M.D. 03/23/2022 2:38 PM
[2022-03-23] MEDS ORDERED: MECLIZINE HCL 25 MG TAB PO STA (15:12)
[2022-03-23] MEDS ORDERED: ASPIRIN CHEW 324 MG PO STA (16:32)
--- NOTE | 2022-03-23 16:51 | History & Physical Report ---
Date of Service March 23, 2022 Assessment & Plan (1) Dizziness: (2) Intractable nausea and vomiting: (3) CVA (cerebral vascular accident): Plan: Patient is 81-year-old male with PMH HTN, dyslipidemia, CAD s/p stent, BPH, GERD, MARYCARMEN, lumbar degenerative disc disease with spinal stenosis with cauda equina syndrome s/p L2-L5 decompression presented to ER with complaint of nausea and vomiting x 1 week. In ER given Zofran, 1 mL NSS, meclizine with some reported improvement of dizziness MRI Brain: 1. There are a few tiny subcentimeter foci of restricted diffusion within the centrum semiovale frontoparietal junctions. Findings are compatible with acute to subacute watershed lacunar infarcts. 2. No territorial infarct. 3. Chronic lacunar infarcts of the cerebellum. 4. Involutional changes with chronic microvascular ischemic disease. In ER given 324 mg aspirin Tele to monitor for arrhythmias Lipids, A1C in AM Echo Patient had a contrast today, plan to do CTA head and neck tomorrow Continue Plavix, Eliquis, atorvastatin Neurology consult PT/OT consult Speech consult Fall precautions Meclizine as needed Gentle IVF CBC, BMP in a.m. (4) Urinary retention: Plan: History of BPH, urinary retention. Has current Martinez catheter in place. Martinez last changed 03/11/2022 per family To have outpatient urology follow-up with [facility] urology nurse for Martinez removal on 04/07/2022 (5) Status post lumbar surgery: Plan: History lumbar degenerative disease, stenosis, multilevel listhesis, severe cauda equina nerve compression S/P L2-L5 decompression by Dr. Mcleod on 02/11/22 at [facility] (6) Pulmonary embolus: Plan: Found to have bilateral PEs during hospitalization at [facility] in 01/2022. S/P mechanical thrombectomy with IR and IVC filter placement. On Eliquis (7) CAD (coronary artery disease): Plan: S/P Stent Continue Plavix, Eliquis, atorvastatin, metoprolol (8) Hypertension: Plan: Hold lisinopril Monitor BP (9) MARYCARMEN (obstructive sleep apnea): Plan: Not using BiPAP (10) Abnormal CT scan: Plan: CT abdomen pelvis: 1. Stable exam compared to the 03/18/2022 study. 2. Martinez catheter within a decompressed or bladder again noted. Prostamegaly with urinary bladder wall thickening is again suggestive of chronic bladder outlet obstruction. Correlate with urinalysis to exclude cystitis. 3. No bowel obstruction or bowel wall thickening. 4. 1.8 cm right renal lesion suggestive of renal cell carcinoma again noted. 5. Nonobstructing bilateral nephrolithiasis. Patient reports is scheduled to have outpatient follow-up imaging for renal lesion DVT Prophylaxis On Eliquis Full code as per discussion with pt Follows with Dr Steele for routine care Pt was seen and care coordinated with Dr Geiger. See addendum I spent a total of 78 minutes reviewing notes, outpatient records, labs, medication, coordinating, documenting and providing care for this patient excluding time spent in the performance of separately billed services. History of Present Illness Chief Complaint: N/V Primary Care Provider: Chidi Steele DO Patient is 81-year-old male with PMH HTN, dyslipidemia, CAD s/p stent, BPH, GERD, MARYCARMEN, lumbar degenerative disc disease with spinal stenosis with cauda equina syndrome s/p L2-L5 decompression presented to ER with complaint of nausea and vomiting x 1 week. Chart reviewed. Patient admitted to [facility] 02/11/2022-02/13/2022 for lumbar radiculopathy with low back pain, lower extremity weakness urinary incontinence and retention. MRI lumbar spine showed multilevel stenosis, multilevel listhesis, severe cauda equina nerve compression. He had L2-L5 decompression by Dr. Mcleod on 02/11/22. Hospitalization [facility] 02/15/2023-02/25/2023 for back pain, lower extremity pain and weakness with several episodes of falling. Patient was participating with PT. Hospital course complicated by developing mottling of lower extremities, hypotension, hypoxemia, BR[place]TON. Patient found to have bilateral PEs, echo showed RV dysfunction from massive PE. He underwent mechanical thrombectomy with IR and IVC filter placement. Was treated with heparin and was transitioned to Eliquis on 02/21/2022. Patient had urinary retention while in hospital and had to have Martinez catheter replaced on 02/21/2022. He was discharged on dexamethasone until 02/27 and was discharged to [facility]. Discharged home on 03/14/21. States since being home on 03/15/2021 had onset of dizziness with any movement of head and neck as well as with position change with associated nausea and vomiting. Describes dizziness as sensation "that he needs to hold on so he does not fall" with associated blurry vision. When he has his onset of dizziness he also reports onset of frontal headache that radiates posteriorly followed by nausea and several episodes of vomiting. No further visual issues once dizziness episodes resolved. Patient states typically after he vomits the headache resolves. PCP prescribed scopolamine patch which seemed to help for several days however 2 days ago with onset of recurrent dizziness, nausea vomiting again. Patient seen at [facility] ER on 03/18/2022 for nausea, vomiting, dizziness. CT head at that time with no acute intracranial findings. CT abdomen and pelvis with no acute infectious or inflammatory findings, no bowel obstruction. He was discharged home. Past 2 days with increased episodes of dizziness with position change, nausea, vomiting. Patient states has had approximately 8-9 episodes of vomiting in the last 24 hours. Patient states while in the rehab he had noted right upper extremity weakness compared to left. Patient with chronic bilateral foot drop. Patient states participated in physical therapy and is to have pending outpatient physical therapy as well. He had been ambulating throughout the house with the use of walker however the past several days has been sedentary secondary to dizziness and nausea and vomiting. Chronic neuropathy bilateral feet. Denies any new paresthesias. cardiology follow-up with [facility] cardiology on 03/20/2022. No medication changes were made. Has Martinez catheter in place secondary to urinary retention during admission at [facility]. Thinks last had Martinez catheter changed on 03/11/2022. reports patient is to have catheter removed on 04/07/2022. Patient has ultrasound scheduled for follow-up of renal mass. Denies fever/chills, diaphoresis, hematemesis, melena, hematochezia, syncope, LOC vision loss, diplopia, neck pain, CP, SOB, orthopnea, palpitations, cough, sore throat, choking, otalgia, rhinorrhea, abdominal pain, extremity edema, rashes, urinary symptoms. Allergies Allergy/AdvReac Type Severity Reaction Status Date / Time Sulfa (Sulfonamide Allergy Intermediate rash Verified 03/23/22 16:15 Antibiotics) Home Medications Medication Instructions Recorded Confirmed Type amoxicillin 500 mg capsule 2,000 mg PO DIRECTED PRN DENTAL 11/20/18 03/23/22 History APPOINTMENTS duloxetine 60 mg capsule,delayed 60 mg PO QAM 11/20/18 03/23/22 History release metoprolol succinate 25 mg 25 mg PO QAM #90 tabs 11/20/18 03/23/22 History tablet,extended release 24 hr nitroglycerin 0.4 mg sublingual 0.4 mg sublingual Q5M PRN chest 11/20/18 03/23/22 History tablet pain #25 tabs multivitamin (Daily Multi-Vitamin 1 tab PO QAM 01/03/19 03/23/22 History tablet) pantoprazole 40 mg tablet,delayed 40 mg PO QAM 05/18/20 03/23/22 History release finasteride 5 mg tablet 5 mg PO QAM 09/05/21 03/23/22 History acetaminophen 500 mg tablet 500 mg PO AMHS 11/15/21 03/23/22 History (Tylenol Extra Strength) clopidogrel 75 mg tablet 75 mg PO QAM 02/15/22 03/23/22 History tizanidine 4 mg tablet 4 mg PO DIRECTED PRN MUSCLE 02/15/22 03/23/22 History SPASMS apixaban 5 mg tablet (Eliquis) 5 mg PO BID 03/18/22 03/23/22 History diclofenac sodium 1 % topical gel 2 g topical QID 03/18/22 03/23/22 History lisinopril 5 mg tablet 5 mg PO QAM 03/18/22 03/23/22 History melatonin 3 mg tablet 3 mg PO HS 03/18/22 03/23/22 History ondansetron 4 mg disintegrating 4 mg PO Q8H PRN nausea and 03/18/22 03/23/22 Rx tablet vomiting #30 tabs scopolamine base 1 mg over 3 days 1 patch transdermal Q3D PRN 03/18/22 03/23/22 History transdermal patch NEEDED atorvastatin 40 mg tablet 40 mg PO HS 03/23/22 03/23/22 History Past Med/Surg History Medical History (Updated 03/23/22 @ 21:48 by Noelle Combs PA-C) Anemia Aortic regurgitation CAD (coronary artery disease) Dilated aortic root Diverticulosis GERD (gastroesophageal reflux disease) History of myocardial infarction 01/2011 - follows w/ Dr. Macdonald History of nephritis as a child Hyperlipidemia Hypertension Idiopathic peripheral neuropathy Irregular heart beat Obesity Obstructive sleep apnea CPAP MARYCARMEN (obstructive sleep apnea) Osteoarthritis Overactive bladder Peripheral neuropathy Pulmonary embolus Seizure-like activity 35 years ago - 2 convulsive episodes following outpatient surgery (excision pilonidal cyst) -- says he followed with neurologist x 6 months; seizure work up was neg -- no issues since Spinal stenosis cervical and lumbar Surgical History (Updated 03/23/22 @ 21:41 by Noelle Combs PA-C) History of anesthesia reaction 35 years ago - 2 convulsive episodes following outpatient surgery (excision pilonidal cyst) -- says he followed with neurologist x 6 months; seizure work up was neg -- no issues since History of arthroscopy of both knees History of cardiac cath 2010 - [facility] - stents x 2 History of colonoscopy History of excision of mass Rt axillary - benign History of heart artery stent x 2 History of surgical removal of pilonidal cyst History of thumb surgery Rt Hx of laminectomy S/p bilateral carpal tunnel release S/P left rotator cuff repair S/P tonsillectomy S/P total knee arthroplasty BL Family History Father Gastric cancer PONV (postoperative nausea and vomiting) Mother Lymphoma Colon cancer Brother Prostate cancer PONV (postoperative nausea and vomiting) Social History Smoking Status: Former smoker Tobacco Type: Cigars Second Hand Exposure: No; Hx Alcohol Use: Yes Alcohol type: beer Hx Substance Use: No Preferred Language: Sammarinese Communication Ability: Effective 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 Agriculture Required: No Beliefs That Will Affect Care: None marital status: Current Living Situation: Spouse current occupational status: retired Feels Safe at Home: Yes Assistive Devices: Cane, CPAP and Glasses Review of Systems Review of Systems: All systems reviewed & are unremarkable except as noted in HPI & below Physical Exam Physical Exam: General: no distress, WDWN Head: normocephalic, atraumatic Eyes: PERRL, EOM's intact, +lateral nystagmus, conjunctiva non-injected, anicteric ENT: normal inspection external ears, nose, mucous membranes moist Neck: supple, trachea midline Lungs: clear, no respiratory distress, no wheezing/rhonchi/rales CV: RRR, no murmur, no JVD, no pretibial edema Abd: normal BS, soft, non-tender Ext: no cyanosis, no calf tenderness Neuro: A&O x 3, normal affect, Visual shaver intact. PERRL, EOMs intact. + nystagmus, face is strong and symmetric, hearing grossly intact, soft palate elevates symmetrically, no dysarthria, shoulder shrug intact, tongue is midline, normal movement, no fasciculations. Strength 4/5 throughout, foot drop bilaterally is chronic Skin: warm, dry Results & Data Results & Data ([facility]) Vital Signs (Past 12 Hours) Vital Signs Temp Pulse Resp BP Pulse Ox O2 Del Method O2 Flow Rate 03/23/22 16:31 85 14 03/23/22 16:31 98/52 L 03/23/22 16:30 87 13 03/23/22 16:00 86 17 99 03/23/22 16:00 137/84 03/23/22 15:30 87 20 03/23/22 15:30 127/82 03/23/22 15:00 81 17 97 03/23/22 15:00 145/80 H 03/23/22 14:36 87 19 97 03/23/22 14:36 124/85 03/23/22 14:30 81 14 93 03/23/22 14:00 84 14 93 03/23/22 13:30 80 14 98 03/23/22 13:00 88 31 H 03/23/22 12:38 96 H 18 98 03/23/22 13:09 98 Room Air 0 03/23/22 12:42 36.7 C 98 H 30 H 97 Room Air Laboratory Results Short CBC 03/23/22 Range/Units 12:45 WBC 5.61 (4.8-10.8) K/ul Hgb 12.0 L (14.0-18.0) g/dl Hct 34.7 L (40.1-51.0) % Plt Count 241 (130-400) K/uL BMP 03/23/22 12:45 Sodium 139 Potassium 3.6 Chloride 107 Carbon Dioxide 19 L BUN 12 Creatinine 0.87 Glucose 110 H Calcium 9.0 Liver Function 03/23/22 Range/Units 12:45 Total Bilirubin 0.9 (0.2-1.0) mg/dl AST 17 (13-39) U/L ALT 14 (7-52) U/L Alkaline Phosphatase 85 (34-104) U/L Albumin 3.9 (3.4-5.0) gm/dl Urine 03/23/22 Range/Units 13:30 Urine Color Dark Yellow Urine Appearance Clear (Clear) Urine pH 6.5 (4.5-7.5) Ur Specific [place] 1.023 (1.000-1.030) Urine Protein 1+ H (Negative) Urine Glucose (UA) Negative (Negative) Diagnostic Findings Abdomen/Pelvis CT 03/23/22 13:[address] WITH IV CONTRAST CT DOSE: 706.87 mGy.cm HISTORY: Acute abdominal pain with nausea and vomiting N/V, worsening this week TECHNIQUE: Multiaxial CT images of the abdomen and pelvis were performed following the IV administration of 91 cc of Optiray, A dose lowering technique was utilized adhering to the principles of ALARA. COMPARISON STUDY: March 18, 2022 FINDINGS: Coronary artery calcifications. Mild subsegmental bibasilar atelectasis versus scarring. No pneumatosis or pneumoperitoneum. Calcified granuloma of the basal left lower lobe. Unremarkable spleen, mildly trophic pancreas and adrenal glands. The gallbladder is within normal limits. Unchanged appearance of the liver. Indeterminate ill-defined 1.4 cm hypodense lesion of the right hepatic lobe on image 16 series 2 with hepatic dome cysts. Patency of the hepatic and portal veins. There are a few cysts of the bilateral kidneys redemonstrated along with several punctate nonobstructing bilateral renal calculi. There is an enhancing 1.8 cm mass the interpolar aspect of the right kidney laterally. No ureteral calculi or hydronephrosis. Decompressed or bladder with wall thickening and Martinez catheter in place. Air is also noted within the urinary bladder lumen. Prostamegaly. Mild perivesicular stranding. Atherosclerosis of the aorta. Infrarenal IVC filter. No lymphadenopathy identified. Tiny hiatal hernia. No bowel obstruction or bowel wall thickening. Colonic diverticulosis. The appendix is not well visualized. No secondary signs of acute appendicitis. Laminectomy changes of the lumbar spine redemonstrated at L2-L5. Fluid collection within the operative bed. Similar to the prior study measuring up to 14.5 cm in craniocaudal dimension. Unchanged grade 1 anterolisthesis L4 on L5 with chronic pars defects. IMPRESSION: 1. Stable exam compared to the 03/18/2022 study. 2. Martinez catheter within a decompressed or bladder again noted. Prostamegaly with urinary bladder wall thickening is again suggestive of chronic bladder outlet obstruction. Correlate with urinalysis to exclude cystitis. 3. No bowel obstruction or bowel wall thickening. 4. 1.8 cm right renal lesion suggestive of renal cell carcinoma again noted. 5. Nonobstructing bilateral nephrolithiasis. ACT 112: Negative or not required by law. The above report was generated using voice recognition software. It may contain grammatical, syntax or spelling errors. Electronically signed by: Jameson Stratton M.D. 03/23/2022 2:38 PM Brain MRI 03/23/22 15:18 MR brain wo con HISTORY: 81 years-old Male eval for post circ stroke acute strokelike symptoms COMPARISON: Head CT March 18, 2022 TECHNIQUE: Multiplanar multisequence MRI of the brain was obtained without the use of IV contrast. FINDINGS: There are 3 total subcentimeter foci of restricted diffusion noted within the centrum semiovale of the frontoparietal lobes as seen on images 20 and 21 of series 4. No acute or subacute territorial infarct. Midline structures appear unremarkable. Degenerative changes of the cervical spine. No acute intracranial hemorrhage, midline shift, abnormal extra-axial collection, cephalization intracranial mass. Involutional changes with ventriculomegaly, likely on an ex vacuo basis. Moderate T2/FLAIR hyperintense foci throughout the white matter. Chronic lacunar infarcts of the cerebellum. Cerebral venous sinuses and major arterial flow voids appear patent. The skull and soft tissues unremarkable. Prior bilateral lens repair. Mild mucosal thickening of the paranasal sinuses. The mastoid air cells are clear. IMPRESSION: 1. There are a few tiny subcentimeter foci of restricted diffusion within the centrum semiovale frontoparietal junctions. Findings are compatible with acute to subacute watershed lacunar infarcts. 2. No territorial infarct. 3. Chronic lacunar infarcts of the cerebellum. 4. Involutional changes with chronic microvascular ischemic disease. ACT 112: Negative or not required by law. The above report was generated using voice recognition software. It may contain grammatical, syntax or spelling errors. Electronically signed by: Jameson Stratton M.D. 03/23/2022 5:55 PM Supervising Physician Co-Signing Physician Notes delayed entry date of service noted above Attending Addendum: care coordinated with DANGELO Mcgee please refer to her notes for full details, I agree with her notes patient seen and examined, records reviewed by myself as well on exam, patient seen resting in bed, sitting up alert, oriented, comfortable, in good spirits, very pleasant states his nausea and dizziness have resolved with meds given at the ER would like some food family at bedside denies any neurologic deficits no headache, dizziness no chest pain, dyspnea, palpitations, dizziness reports lower abdominal cramping x few days, no fever, (+) subjective chills no other symptoms VS noted and reviewed oriented x 3, not in distress, speaks in sentences with no effort nor accessory muscle use normal rate, regular rhythm, no murmurs clear breath sounds bilaterally non distended, soft, nontender, martinez cath in place with yellow urine no bipedal edema, erythema, warmth no neuro deficits Brain MRI: 1. There are a few tiny subcentimeter foci of restricted diffusion within the centrum semiovale frontoparietal junctions. Findings are compatible with acute to subacute watershed lacunar infarcts. 2. No territorial infarct. 3. Chronic lacunar infarcts of the cerebellum. 4. Involutional changes with chronic microvascular ischemic disease. ASSESSMENT AND PLAN> 81 year old male with history of PE on Eliquis, CAD s/p Stent on Plavix, BPH on Martinez, Sensory Neuropathy presenting with several days history of dizziness, nausea/vomiting, poor oral intake. ACUTE CVA: WATERSHED LACUNAR INFARCTS IN THE FRONTOPARIETAL, CENTRUM SEMIOVALE JUNCTIONS presented with several days history of nausea, vomiting, dizziness already on Eliquis and Plavix, Lipitor discussed with Neurologist irrigation flume layer Dr. Inman continue usual Eliquis, Plavix, Lipitor obtain CT angio head and neck, Echo Stroke protocol ordered PT/OT eval- needs b/l feet brace, walker, family will bring CT abd/pelvis: negative nausea/vomiting resolved requesting food, diet advanced [employer] UTI on chronic Martinez, BPH patient reporting abdominal cramping UA: indicative of UTI Urine culture: pending Ceftriaxone IV ff up cultures HISTORY OF PE January 2022 s/p Thrombectomy and IVC filter placement in [facility] on Eliquis HISTORY OF CAD S/P STENT continue usual Plavix, Eliquis, Lipitor other diagnoses and plan of care as per DANGELO Geiger MD
--- NOTE | 2022-03-23 17:57 | Magnetic Resonance Report ---
MR brain wo con HISTORY: 81 years-old Male eval for post circ stroke acute strokelike symptoms COMPARISON: Head CT March 18, 2022 TECHNIQUE: Multiplanar multisequence MRI of the brain was obtained without the use of IV contrast. FINDINGS: There are 3 total subcentimeter foci of restricted diffusion noted within the centrum semiovale of th e frontoparietal lobes as seen on images 20 and 21 of series 4. No acute or subacute territorial infa rct. Midline structures appear unremarkable. Degenerative changes of the cervical spine. No acute int racranial hemorrhage, midline shift, abnormal extra-axial collection, cephalization intracranial mass . Involutional changes with ventriculomegaly, likely on an ex vacuo basis. Moderate T2/FLAIR hyperint ense foci throughout the white matter. Chronic lacunar infarcts of the cerebellum. Cerebral venous sinuses and major arterial flow voids appear patent. The skull and soft tissues unrem arkable. Prior bilateral lens repair. Mild mucosal thickening of the paranasal sinuses. The mastoid a ir cells are clear. IMPRESSION: 1. There are a few tiny subcentimeter foci of restricted diffusion within the centrum semiovale front oparietal junctions. Findings are compatible with acute to subacute watershed lacunar infarcts. 2. No territorial infarct. 3. Chronic lacunar infarcts of the cerebellum. 4. Involutional changes with chronic microvascular ischemic disease. ACT 112: Negative or not required by law. The above report was generated using voice recognition software. It may contain grammatical, syntax o r spelling errors. Electronically signed by: Jameson Stratton M.D. 03/23/2022 5:55 PM
[2022-03-23] MEDS ORDERED: MECLIZINE HCL 25 MG TAB PO PRN (19:27)
[2022-03-23] MEDS ORDERED: PHARMACIST DISCHARGE MED REC CONSULT PRN (19:27)
[2022-03-23] MEDS ORDERED: POLYETHYLENE (MIRALAX) 17 GM PACK PO PRN (19:27)
[2022-03-23] MEDS ORDERED: CLOPIDOGREL BISULFATE 75 MG TAB PO ONE (19:45)
[2022-03-23] MEDS: SODIUM CHLORIDE 0.9% 1000ML 1,000 ML IV SCH (20:28)
[2022-03-23] MEDS: cefTRIAXone SODIUM 2,000 MG in DEXTROSE 5% 50 ML IV SCH (20:30)
[2022-03-23] MEDS: ATORVASTATIN 40 MG TAB PO SCH (20:31)
[2022-03-23] MEDS: APIXABAN 5 MG TABLET PO SCH (20:31)
[2022-03-24] MEDS: SODIUM CHLORIDE 0.9% 1000ML 1,000 ML IV SCH ×2 (06:02→17:49)
[2022-03-24 06:22] LABS: Basophils # (auto) 0.03 K/uL (0-0.2); Basophils % (auto) 0.6 %; Eosinophils # (auto) 0.19 K/uL (0-0.50); Eosinophils % (auto) 3.8 %; Hematocrit (blood only) 32.3 % (40.1-51.0); Hemoglobin 10.7 g/dl (14.0-18.0); Immature Granulocytes # (auto) 0.04 K/uL (0.00-0.02); Immature Granulocytes % (auto) 0.8 %; Lymphocytes % (auto) 32.3 %; Mean Corpuscular Hemoglobin 29.9 pg (25.0-34.0); Mean Corpuscular Hgb Conc 33.1 g/dL (32.0-36.0); Mean Corpuscular Volume 90.2 fL (80.0-100.0); Mean Platelet Volume 9.3 fL (9.4-12.4); Monocytes # (auto) 0.47 K/uL (0.24-0.82); Monocytes % (auto) 9.5 %; Neutrophils # (auto) 2.63 K/uL (1.4-6.5); Platelet Count 214 K/uL (130-400); RDW Coefficient of Variation 14.3 % (11.5-14.5); Red Blood Count 3.58 M/uL (4.63-6.08); White Blood Count 4.96 K/ul (4.8-10.8)
[2022-03-24 06:43] LABS: BUN Creatinine Ratio 17.4 (10-20); Calcium 8.6 mg/dl (8.5-10.1); Chol HDL Ratio 2.4 (0-5); Creatinine Clr Calc Pharmacy 106.6 ml/min; Est GFR (African American) 104.6 ml/min; Est GFR (Non-African American) 90.3 ml/min; Potassium 3.4 mmol/L (3.5-5.1)
[2022-03-24 07:04] LABS: Estimated Average Glucose 108 mg/dl; Hemoglobin A1C 5.4 % (4.5-5.6)
[2022-03-24] MEDS ORDERED: POTASSIUM CHLORIDE CRTAB 20 MEQ TABCR PO STA (08:07)
[2022-03-24] MEDS: APIXABAN 5 MG TABLET PO SCH ×2 (08:23→21:44)
[2022-03-24] MEDS: FINASTERIDE 5 MG TAB PO SCH (08:23)
[2022-03-24] MEDS: PANTOprazole 40 MG TAB PO SCH (08:23)
[2022-03-24] MEDS: DULoxetine HCL 60 MG CAP PO SCH (08:24)
[2022-03-24] MEDS: CLOPIDOGREL BISULFATE 75 MG TAB PO SCH (08:24)
[2022-03-24] MEDS: METOPROLOL SUCC 25MG EXT REL TAB PO SCH (08:24)
--- NOTE | 2022-03-24 09:49 | Electrocardiogram Report ---
Test Reason : Blood Pressure : / mmHG Vent. Rate : 084 BPM Atrial Rate : 084 BPM P-R Int : 142 ms QRS Dur : 088 ms QT Int : 426 ms P-R-T Axes : 038 058 072 degrees QTc Int : 503 ms Poor data quality, interpretation may be adversely affected Normal sinus rhythm Possible Inferior infarct (cited on or before 15-FEB-2022) Prolonged QT Abnormal ECG When compared with ECG of 18-MAR-2022 23:48, Nonspecific T wave abnormality, worse in Inferior leads Confirmed by Lenny Leone ([id number]) on 03/24/2022 9:49:20 AM Referred By: Confirmed By:Dashawn Leone
[2022-03-24] MEDS: PROMETHAZINE HCL 12.5 MG in SODIUM CHLORIDE 0.9% 50 ML IV PRN (11:27)
[2022-03-24] MEDS ORDERED: OPTIRAY 320 500ml IV ONE (12:15)
--- NOTE | 2022-03-24 12:46 | Neurology Consultation ---
Date of Consultation March 24, 2022 Assessment & Plan (1) CVA (cerebral vascular accident): Plan Neurology Consultation Assessment & Plan: Impression: pt with subacute ischemic stroke that is small and difficult to explain for his dizziness and GI symptoms. his dizziness does have positional component without clear vertigo. Peripheral vestibular dysfunction is possibility and perhaps other GI or nephro related conditions need to be also consider. His stroke is small and clinically does not appears to be main contributing issue. Recommendations: * CTA head/neck pending, expect to find likely stenosis, unless there is clear LVO, he is already on Eliquis and max medical therapy. * continue eliquis and plavix as now. * no need for permissive HTN at this point as his stroke is now at least 4-5 days old. * * Long-term SBP goal less than 130. * Plenty of hydration including IV fluid (use isotonic solution) . Avoid hypovolemia and hypotension. * Initiate DVT prevention therapy * Avoid hypoglycemia, serum glucose goal during hospitalization: 140-180 * Long-term HgA1c goal less than 7 * Start statin if not on it.Long-term LDL goal of less than 70. * Head of bed up 30 degree if possible. * Stroke education * Smoke cessation education if a smoker. * Telemetry monitoring.Please order MCOT (mobile cardiac outpatient telem etry) orICM (insertable front desk monitor) if never had moth exterminator cardiac monitoring previously. And if found to have atrial flutter or fibrillation, should consider anticoagulation therapy if no contraindication. * Fall precaution * Physical/occupational therapy as now and encourage him to sit up and walk around much as possible to speed up the recovery. avoid lying flat. * if dizziness persist, may need to consider ENT consult with vestibular testing. please call again if there is other question. Chart reviewed I have spent more than 50% educating patient about potential diagnosis and neurological evaluation and coordinating care with patient's treatment team. Total time spent: 80 min (this includes chart review and documentation) Dr. James Inman MD [facility] Neurology Chief Complaint: dizzy HISTORY OF PRESENT ILLNESS:pt this morning feels nausea is improved. mri brain noted for subacute appearing lesions of small ischemic stroke b/l subcortical areas as noted. no new weakness. pt denies speech problem and his nausea and vomitting symptoms started more than a week ago. chart reviewed. Admission/Initial HPI:Patient is 81-year-old male with PMH HTN, dyslipidemia, CAD s/p stent, BPH, GERD, MARYCARMEN, lumbar degenerative disc disease with spinal stenosis with cauda equina syndrome s/p L2-L5 decompression presented to ER with complaint of nausea and vomiting x 1 week. Chart reviewed. Patient admitted to [facility] 02/11/2022-02/13/2022 for lumbar ra diculopathy with low back pain, lower extremity weakness urinary incontinence and retention. MRI lumbar spine showed multilevel stenosis, multilevel listhesis, severe cauda equina nerve compression. He had L2-L5 decompression by Dr. Mcleod on 02/11/22. Hospitalization [facility] 02/15/2023-02/25/2023 for back pain, lower extremity pain and weakness with several episodes of falling. Patient was participating with PT. Hospital course complicated by developing mottling of lower extremities, hypotension, hypoxemia, BRITTON. Patient found to have bilateral PEs, echo showed RV dysfunction from massive PE. He underwent mechanical thrombectomy with IR and IVC filter placement. Was treated with heparin and was transitioned to Eliquis on 02/21/2022. Patient had urinary retention while in hospital and had to have Rankin catheter replaced on 02/21/2022. He was discharged on dexamethasone until 02/27 and was discharged to [facility]. Discharged home on 03/14/21. States since being home on 03/15/2021 had onset of dizziness with any movement of head and neck as well as with position change with associated nausea and vomiting. Describes dizziness as sensation "that he needs to hold on so he does not fall" with associated blurry vision. When he has his onset of dizziness he also reports onset of frontal headache that radiates posteriorly followed by nausea and several episodes of vomiting. No further visual issues once dizziness episodes resolved. Patient states typically after he vomits the headache resolves. PCP prescribed scopolamine patch which seemed to help for several days however 2 days ago with onset of recurrent dizziness, nausea vomiting again. Patient seen at [facility] ER on 03/18/2022 for nausea, vomiting, dizziness. CT head at that time with no acute intracranial findings. CT abdomen and pelvis with no acute infectious or inflammatory findings, no bowel obstruction. He was discharged home. Past 2 days with increased episodes of dizziness with position change, nausea, vomiting. Patient states has had approximately 8-9 episodes of vomiting in the last 24 hours. Patient states while in the rehab he had noted right upper extremity weakness compared to left. Patient with chronic bilateral foot drop. Patient states participated in physical therapy and is to have pending outpatient physical therapy as well. He had been ambulating throughout the house with the use of walker however the past several days has been sedentary secondary to dizziness and nausea and vomiting. Chronic neuropathy bilateral feet. Denies any new paresthesias. cardiology follow-up with [facility] cardiology on 03/20/2022. No medication changes were made. Has Rankin catheter in place secondary to urinary retention during admission at [facility]. Thinks last had Rankin catheter changed on 03/11/2022. reports patient is to have catheter removed on 04/07/2022. Patient has ultrasound scheduled for follow-up of renal mass. Denies fever/chills, diaphoresis, hematemesis, melena, hematochezia, syncope, LOC vision loss, diplopia, neck pain, CP, SOB, orthopnea, palpitations, cough, sore throat, choking, otalgia, rhinorrhea, abdominal pain, extremity edema, rashes, urinary symptoms. Past Medical History: See chart Meds: See chart Social & Family History: See chart Review of Systems: Per HPI. Physical Exam: General Statement: not in acute distress, well appearing Mental Status: Oriented fully. Normal comprehension, no neglect, Fluent speech, logical thought process, Visuo-spatial function was intact. No apraxia, no L/R confusion. Cranial Nerves: Visual shaver were full.PERRL.Extraocular movements were full with no nystagmus. Normal pursuit.Facial movements were symmetric.Hearing was grossly intact.Palate elevated symmetrically.Sternocleidomastoid and trapezius muscles were 5/5 and equal bilaterally.Tongue extended midline. Motor: Strength was 5/5 upper ext. distal foot drop b/l which is chronic in nature. Normal tone.There were no abnormal movements or pronator drift. Sensory:intact to touch bilaterally Coordination: intact bilaterally History of Present Illness Attending Physician: Lorraine Love MD Allergies Allergy/AdvReac Type Severity Reaction Status Date / Time Sulfa (Sulfonamide Allergy Intermediate rash Verified 03/23/22 16:15 Antibiotics) Home Medications Medication Instructions Recorded Confirmed Type amoxicillin 500 mg capsule 2,000 mg PO DIRECTED PRN DENTAL 11/20/18 03/23/22 History APPOINTMENTS duloxetine 60 mg capsule,delayed 60 mg PO QAM 11/20/18 03/23/22 History release metoprolol succinate 25 mg 25 mg PO QAM #90 tabs 11/20/18 03/23/22 History tablet,extended release 24 hr nitroglycerin 0.4 mg sublingual 0.4 mg sublingual Q5M PRN chest 11/20/18 History tablet pain #25 tabs multivitamin (Daily Multi-Vitamin 1 tab PO QAM 01/03/19 03/23/22 History tablet) pantoprazole 40 mg tablet,delayed 40 mg PO QAM 05/18/20 03/23/22 History release finasteride 5 mg tablet 5 mg PO QAM 09/05/21 03/23/22 History acetaminophen 500 mg tablet 500 mg PO AMHS 11/15/21 03/23/22 History (Tylenol Extra Strength) clopidogrel 75 mg tablet 75 mg PO QAM 02/15/22 03/23/22 History tizanidine 4 mg tablet 4 mg PO DIRECTED PRN MUSCLE 02/15/22 03/23/22 History SPASMS apixaban 5 mg tablet (Eliquis) 5 mg PO BID 03/18/22 03/23/22 History diclofenac sodium 1 % topical gel 2 g topical QID 03/18/22 03/23/22 History lisinopril 5 mg tablet 5 mg PO QAM 03/18/22 03/23/22 History melatonin 3 mg tablet 3 mg PO HS 03/18/22 03/23/22 History ondansetron 4 mg disintegrating 4 mg PO Q8H PRN nausea and 03/18/22 03/23/22 Rx tablet vomiting #30 tabs scopolamine base 1 mg over 3 days 1 patch transdermal Q3D PRN 03/18/22 History transdermal patch NEEDED atorvastatin 40 mg tablet 40 mg PO HS 03/23/22 03/23/22 History Patient History Medical History (Updated 03/23/22 @ 21:48 by Noelle Combs PA-C) Anemia Aortic regurgitation CAD (coronary artery disease) Dilated aortic root Diverticulosis GERD (gastroesophageal reflux disease) History of myocardial infarction 01/2011 - follows w/ Dr. Macdonald History of nephritis as a child Hyperlipidemia Hypertension Idiopathic peripheral neuropathy Irregular heart beat Obesity Obstructive sleep apnea CPAP MARYCARMEN (obstructive sleep apnea) Osteoarthritis Overactive bladder Peripheral neuropathy Pulmonary embolus Seizure-like activity 35 years ago - 2 convulsive episodes following outpatient surgery (excision pilonidal cyst) -- says he followed with neurologist x 6 months; seizure work up was neg -- no issues since Spinal stenosis cervical and lumbar Surgical History (Updated 03/23/22 @ 21:41 by Noelle Combs PA-C) History of anesthesia reaction 35 years ago - 2 convulsive episodes following outpatient surgery (excision pilonidal cyst) -- says he followed with neurologist x 6 months; seizure work up was neg -- no issues since History of arthroscopy of both knees History of cardiac cath 2010 - [facility] - stents x 2 History of colonoscopy History of excision of mass Rt axillary - benign History of heart artery stent x 2 History of surgical removal of pilonidal cyst History of thumb surgery Rt Hx of laminectomy S/p bilateral carpal tunnel release S/P left rotator cuff repair S/P tonsillectomy S/P total knee arthroplasty BL Family History Father Gastric cancer PONV (postoperative nausea and vomiting) Mother Lymphoma Colon cancer Brother Prostate cancer PONV (postoperative nausea and vomiting) Social History Smoking Status: Former smoker Tobacco Type: Cigars Second Hand Exposure: No; Hx Alcohol Use: Yes Alcohol type: beer Hx Substance Use: No Preferred Language: Lebanese Communication Ability: Effective Media Sales Executive Required: No Beliefs That Will Affect Care: None marital status: Current Living Situation: Spouse current occupational status: retired Feels Safe at Home: Yes Assistive Devices: Cane, CPAP and Glasses Results & Data ([facility]) Vital Signs (Past 12 Hours) Vital Signs Temp Pulse Pulse Resp BP Pulse Ox O2 Del Method 03/24/22 12:01 36.5 C 89 20 132/77 98 Nasal Cannula 03/24/22 08:56 86 03/24/22 06:10 36.9 C 86 19 133/70 95 Nasal Cannula 03/24/22 03:11 36.6 C 87 18 144/83 H 97 Room Air 03/24/22 02:50 89 O2 Flow Rate 03/24/22 12:01 2 03/24/22 08:56 03/24/22 06:10 2 03/24/22 03:11 03/24/22 02:50
--- NOTE | 2022-03-24 12:47 | CT Scan Report ---
CT angio head w con CLINICAL HISTORY: 81 years-old Male with Stroke. Acute strokelike symptoms with nausea and vomitin g COMPARISON STUDY: Brain MRI March 23, 2022 TECHNIQUE: Following the IV administration of 111 cc of Optiray, CT angiogram of the brain was perfor med from the skull base to the vertex. Images are reviewed in the axial, sagittal, and coronal planes . 3-D MIPS images are created and assessed. IV contrast was administered without complication. All me asurements were obtained according to NASCET criteria. A dose lowering technique was utilized adherin g to the principles of ALARA. CT DOSE: 699.16 mGy.cm FINDINGS: CT ANGIOGRAM OF THE BRAIN: The imaged bilateral internal carotid arteries are patent. The bilateral anterior and middle cerebral arteries are also patent. The vertebrobasilar system and posterior cerebral arteries are widely lopez nt. origin of the right posterior cerebral artery. There is no aneurysm, high-grade stenosis, o r proximal branch occlusion identified. Dural sinuses appear patent. Involutional changes with chronic microvascular ischemic disease. Prior bilateral lens repair. The pr eviously noted tiny infarcts in the centrum semiovale not identified by CT. IMPRESSION: 1. Unremarkable CTA of the head. 2. The previously noted tiny infarcts within the centrum semiovale are not identified by CT. ACT 112: Negative or not required by law. The above report was generated using voice recognition software. It may contain grammatical, syntax o r spelling errors. Electronically signed by: Jameson Stratton M.D. 03/24/2022 12:45 PM
--- NOTE | 2022-03-24 13:14 | CT Scan Report ---
NECK CTA HISTORY: Nausea. Vomiting. Dizziness. stroke TECHNIQUE: Multiaxial CT images of the neck were performed following the intravenous administration o f contrast to evaluate the major cervical vessels. Maximum intensity projection images were also obta ined. All measurements were calculated based on NASCET criteria. A dose lowering technique was utili zed adhering to the principles of ALARA. COMPARISON STUDY: None. FINDINGS: The aortic arch and proximal great vessels are widely patent. There is no significant sten osis, occlusion, or dissection identified within the bilateral common carotid, internal carotid, or v ertebral arteries. The visualized ascending thoracic aorta measures up to 4.1 cm in diameter. Mild ca lcified plaque within the bilateral carotid bifurcations, right greater than left. IMPRESSION: 1. No significant stenosis, occlusion, or dissection identified within the carotid or vertebral arter ies. 2. The visualized ascending thoracic aorta measures up to 4.1 cm in diameter. ACT 112: Negative or not required by law. Electronically signed by: Thee Tyler M.D. 03/24/2022 1:13 PM
--- NOTE | 2022-03-24 14:37 | Pharmacy Report ---
- Date of Service March 24, 2022 - Pharmacy CVA/TIA Medication Review Medications to Prevent Stroke handout has been added to the patients discharge packet. Antiplatelet(s) * Clopidogrel Cholesterol * High intensity statin: atorvastatin 40 mg daily DVT Prophylaxis * Receiving therapeutic anticoagulation per below Therapeutic Anticoagulation * No history of Afib/Aflutter noted, but patient is currently receiving apixaban for b/l PE (01/2022). Neurology aware and on-board. Type 2 Diabetes * Patient does not have T2DM
--- NOTE | 2022-03-24 14:57 | Hospitalist Progress Note ---
Date of Service March 24, 2022 Assessment & Plan (1) Dizziness: (2) Intractable nausea and vomiting: (3) CVA (cerebral vascular accident): Plan: Patient is 81-year-old male with PMH HTN, dyslipidemia, CAD s/p stent, BPH, GERD, MARYCARMEN, lumbar degenerative disc disease with spinal stenosis with cauda equina syndrome s/p L2-L5 decompression presented to ER with complaint of nausea and vomiting x 1 week. MRI Brain: 1. There are a few tiny subcentimeter foci of restricted diffusion within the centrum semiovale frontoparietal junctions. Findings are compatible with acute to subacute watershed lacunar infarcts. 2. No territorial infarct. 3. Chronic lacunar infarcts of the cerebellum. 4. Involutional changes with chronic microvascular ischemic disease. In ER given 324 mg aspirin and later on that was discontinued Continue Plavix, Eliquis, atorvastatin CTA of the head and neck were unremarkable Echo of the heart is pending Neurology consult-appreciate neurology input and recommendation PT/OT consult Speech consult Fall precautions Meclizine as needed Gentle IVF Clinically much better today We will continue current management (4) Urinary retention: Plan: History of BPH, urinary retention. Has current Rankin catheter in place. Rankin last changed 03/11/2022 per family To have outpatient urology follow-up with [facility] urology nurse for Rankin removal on 04/07/2022 Urine culture is showing Staphylococcus species-await further identification and sensitivity Has been getting intravenous ceftriaxone (5) Status post lumbar surgery: Plan: History lumbar degenerative disease, stenosis, multilevel listhesis, severe cauda equina nerve compression S/P L2-L5 decompression by Dr. Mcleod [place] 02/11/22 [place] [facility] [place]ceived adequate physical therapy at [facility] Was sent home from [facility] on around 14th of this month Has neuropathy involving the lower extremities (6) Pulmonary embolus: Plan: Found to have bilateral PEs during hospitalization [place] [facility] [place]. S/P mechanical thrombectomy with IR and IVC filter placement. On Eliquis Will continue Eliquis on top of Plavix (7) CAD (coronary artery disease): Plan: S/P Stent Continue Plavix, Eliquis, atorvastatin, metoprolol (8) Hypertension: Plan: Hold lisinopril Monitor BP (9) MARYCARMNE (obstructive sleep apnea): Plan: Not using BiPAP (10) Abnormal CT scan: Plan: Possible renal cell carcinoma CT abdomen pelvis: 1. Stable exam compared to the 03/18/2022 study. 2. Rankin catheter within a decompressed or bladder again noted. Prostamegaly with urinary bladder wall thickening is again suggestive of chronic bladder out let obstruction. Correlate with urinalysis to exclude cystitis. 3. No bowel obstruction or bowel wall thickening. 4. 1.8 cm right renal lesion suggestive of renal cell carcinoma again noted. 5. Nonobstructing bilateral nephrolithiasis. Patient reports is scheduled to have outpatient follow-up imaging for renal lesion DVT Prophylaxis On Eliquis Full code as per discussion with pt Follows with Dr Steele for routine care Admission and Anticipated Discharge Date Admission Date: March 23, 2022 Subjective 03/24/2022 Patient was seen and examined in telemetry unit in presence of the daughter and the He was admitted with ongoing dizziness associated with intractable nausea and vomiting and noted to have a small subacute stroke Still complaining of dizziness with ambulation but thinks that improved He denies any other symptoms associated with it Review of Systems Review of Systems: All systems reviewed and are unremarkable except as noted below Physical Exam Physical Exam: Lying in bed comfortably Constitutional: well developed, well nourished, + ill appearing and + obese Eyes: PERRL, conjunctivae normal, anicteric sclerae ENMT: external ear and nose normal, oropharynx normal Neck: trachea midline, no thyromegaly Respiratory: no respiratory distress Auscultation: lungs clear to auscultation bilaterally Cardiovascular: Rate/Rhythm: regular rate and regular rhythm; not tachycardic Heart Sounds: normal S1 and normal S2; no murmur Extremities: no edema Gastrointestinal (Abdomen): Inspection/Auscultation: normal bowel sounds; abdomen not distended Percussion/Palpation: abdomen nontender Musculoskeletal: No acute arthritis involving any joint Neurologic: + meningeal signs (Cannot move left leg due to neuropathy, minimal movement of the right leg); + abnormal touch/pain/proprioception (Has decreased sensation involving the left lower leg mainly) and + does not move all extremities Psychiatric: A+Ox3, euthymic affect Lymphatic: no cervical or axillary lymphadenopathy Results & Data Results & Data ([facility]) Vital Signs (Past 12 Hours) Vital Signs Temp Pulse Pulse Resp BP Pulse Ox O2 Del Method 03/24/22 12:01 36.5 C 89 20 132/77 98 Nasal Cannula 03/24/22 08:56 86 03/24/22 06:10 36.9 C 86 19 133/70 95 Nasal Cannula 03/24/22 03:11 36.6 C 87 18 144/83 H 97 Room Air O2 Flow Rate 03/24/22 12:01 2 03/24/22 08:56 03/24/22 06:10 2 03/24/22 03:11 Laboratory Results Short CBC 03/24/22 Range/Units 05:56 WBC 4.96 (4.8-10.8) K/ul Hgb 10.7 L (14.0-18.0) g/dl Hct 32.3 L (40.1-51.0) % Plt Count 214 (130-400) K/uL BMP 03/24/22 05:56 Sodium 140 Potassium 3.4 L Chloride 110 H Carbon Dioxide 23 BUN 12 Creatinine 0.69 Glucose 84 Calcium 8.6 Medications Administered Current Inpatient Medications Acetaminophen (Acetaminophen 325 Mg Tab) 650 mg PO Q4H PRN PRN Reason: Pain or Fever Stop: 04/22/22 19:26 Apixaban (Apixaban 5 Mg Tablet) 5 mg PO BID [facility] Stop: 04/22/22 20:59 Last Admin: 03/24/22 08:23 Dose: 5 mg Atorvastatin Calcium (Atorvastatin 40 Mg Tab) 40 mg PO [facility] Stop: 04/22/22 20:59 Last Admin: 03/23/22 20:31 Dose: 40 mg Clopidogrel Bisulfate (Clopidogrel Bisulfate 75 Mg Tab) 75 mg PO [facility] Stop: 04/23/22 08:59 Last Admin: 03/24/22 08:24 Dose: 75 mg Duloxetine HCl (Duloxetine Hcl 60 Mg Cap) 60 mg PO [facility] Stop: 04/23/22 08:59 Last Admin: 03/24/22 08:24 Dose: 60 mg Finasteride (Finasteride 5 Mg Tab) [facility] Stop: 04/23/22 08:59 Last Admin: 03/24/22 08:23 Dose: 5 mg Promethazine HCl 12.5 mg/ (Sodium Chloride) 50.5 mls @ 202 mls/hr IV Q6H PRN PRN Reason: Nausea And Vomiting Stop: 04/22/22 19:26 Last Infusion: 03/24/22 11:43 Dose: Infused Sodium Chloride (Nss 1000ml) 1,000 mls @ 100 mls/hr IV .Q10H [facility] Stop: 04/22/22 19:26 Last Admin: 03/24/22 06:02 Dose: 100 mls/hr Ceftriaxone Sodium 2,000 mg/ (Dextrose) 70 mls @ 100 mls/hr IV Q24H [facility]; Protocol Stop: 04/02/22 19:29 Last Infusion: 03/23/22 21:02 Dose: Infused Meclizine HCl (Meclizine Hcl 25 Mg Tab) 25 mg PO Q6H PRN PRN Reason: dizziness Stop: 04/22/22 19:26 Metoprolol Succinate (Metoprolol Succ 25mg Ext Rel Tab) 25 mg PO [facility] Stop: 04/23/22 08:59 Last Admin: 03/24/22 08:24 Dose: 25 mg Miscellaneous Information (Pharmacist Discharge Med Rec Consult) 1 each N/A UD PRN PRN Reason: Consult Stop: 04/22/22 19:26 Pantoprazole Sodium (Pantoprazole 40 Mg Tab) 40 mg PO [facility] Stop: 04/23/22 08:59 Last Admin: 03/24/22 08:23 Dose: 40 mg Polyethylene Glycol (Polyethylene (Miralax) 17 Gm Pack) 17 gm PO DAILY PRN PRN Reason: Constipation Stop: 04/22/22 19:26
--- NOTE | 2022-03-24 18:14 | XCELERA ---
[id number]
--- NOTE | 2022-03-24 18:21 | Electrocardiogram Report ---
Test Reason : Blood Pressure : / mmHG Vent. Rate : 096 BPM Atrial Rate : 096 BPM P-R Int : 176 ms QRS Dur : 094 ms QT Int : 380 ms P-R-T Axes : 041 038 017 degrees QTc Int : 480 ms Sinus rhythm Inferior infarct (cited on or before 15-FEB-2022) Nonspecific ST abnormality Abnormal ECG When compared with ECG of 23-MAR-2022 13:01, (unconfirmed) Premature atrial complexes are now Present T wave amplitude has decreased in Anterior leads Nonspecific T wave abnormality, improved in Lateral leads Confirmed by Lenny Leone ([id number]) on 03/24/2022 6:21:02 PM Referred By: REFERRED SELF Confirmed By:Dashawn Leone
[2022-03-24] MEDS: cefTRIAXone SODIUM 2,000 MG in DEXTROSE 5% 50 ML IV SCH (19:30)
[2022-03-24] MEDS: ATORVASTATIN 40 MG TAB PO SCH (21:44)
[2022-03-25] MEDS: SODIUM CHLORIDE 0.9% 1000ML 1,000 ML IV SCH ×3 (03:54→22:19)
[2022-03-25 06:11] LABS: Basophils # (auto) 0.03 K/uL (0-0.2); Basophils % (auto) 0.6 %; Eosinophils # (auto) 0.26 K/uL (0-0.50); Eosinophils % (auto) 5.6 %; Hemoglobin 9.9 g/dl (14.0-18.0); Immature Granulocytes # (auto) 0.03 K/uL (0.00-0.02); Immature Granulocytes % (auto) 0.6 %; Lymphocytes # (auto) 1.67 K/uL (1.2-3.4); Lymphocytes % (auto) 36.1 %; Mean Corpuscular Hemoglobin 29.3 pg (25.0-34.0); Mean Corpuscular Volume 88.8 fL (80.0-100.0); Mean Platelet Volume 9.3 fL (9.4-12.4); Monocytes # (auto) 0.41 K/uL (0.24-0.82); Monocytes % (auto) 8.9 %; Neutrophils # (auto) 2.22 K/uL (1.4-6.5); Neutrophils % (auto) 48.2 %; Platelet Count 194 K/uL (130-400); RDW Coefficient of Variation 14.4 % (11.5-14.5); RDW Standard Deviation 46.5 fL (36.4-46.3); Red Blood Count 3.38 M/uL (4.63-6.08); White Blood Count 4.62 K/ul (4.8-10.8)
[2022-03-25 06:33] LABS: Calcium 8.3 mg/dl (8.5-10.1); Potassium 3.9 mmol/L (3.5-5.1)
[2022-03-25 06:38] LABS: BUN Creatinine Ratio 14.7 (10-20); Creatinine Clr Calc Pharmacy 98.8 ml/min; Est GFR (African American) 101.1 ml/min; Est GFR (Non-African American) 87.2 ml/min
[2022-03-25] MEDS: CLOPIDOGREL BISULFATE 75 MG TAB PO SCH (08:34)
[2022-03-25] MEDS: METOPROLOL SUCC 25MG EXT REL TAB PO SCH (08:34)
[2022-03-25] MEDS: DULoxetine HCL 60 MG CAP PO SCH (08:34)
[2022-03-25] MEDS: APIXABAN 5 MG TABLET PO SCH ×2 (08:34→19:49)
[2022-03-25] MEDS: PANTOprazole 40 MG TAB PO SCH ×2 (08:34→19:50)
[2022-03-25] MEDS: FINASTERIDE 5 MG TAB PO SCH (08:34)
--- NOTE | 2022-03-25 11:52 | Hospitalist Progress Note ---
Date of Service March 25, 2022 Assessment & Plan (1) Dizziness: (2) Intractable nausea and vomiting: (3) CVA (cerebral vascular accident): Plan: Patient is 81-year-old male with PMH HTN, dyslipidemia, CAD s/p stent, BPH, GERD, MARYCARMEN, lumbar degenerative disc disease with spinal stenosis with cauda equina syndrome s/p L2-L5 decompression presented to ER with complaint of nausea and vomiting x 1 week. MRI Brain: 1. There are a few tiny subcentimeter foci of restricted diffusion within the centrum semiovale frontoparietal junctions. Findings are compatible with acute to subacute watershed lacunar infarcts. 2. No territorial infarct. 3. Chronic lacunar infarcts of the cerebellum. 4. Involutional changes with chronic microvascular ischemic disease. In ER given 324 mg aspirin and later on that was discontinued Continue Plavix, Eliquis, atorvastatin CTA of the head and neck were unremarkable Echo of the heart is pending Neurology consult-appreciate neurology input and recommendation Appreciate PT and OT input and recommendation Speech consult-appreciate input and recommendation Fall precautions Meclizine as needed Has been getting intravenous fluid and also drinking adequately No new neurological symptoms Continue PT and OT (4) Urinary retention: Plan: History of BPH, urinary retention. Has current Rankin catheter in place. Rankin last changed 03/11/2022 per family To have [place] [facility] [place] for Rankin removal on 04/07/2022 Urine culture is showing Staphylococcus species-await further identification and sensitivity Has been getting intravenous ceftriaxone Urine culture is growing staph epidermidis and is sensitive to oxacillin We will continue ceftriaxone and transition to oral Keflex on discharge (5) Status post lumbar surgery: Plan: History lumbar degenerative disease, stenosis, multilevel listhesis, severe cauda equina nerve compression S/P L2-L5 decompression by Dr. Mcleod on 02/11/22 at [facility] Received adequate physical therapy at [facility] Was sent home from [facility] on around 14th of this month Has neuropathy involving the lower extremities We will continue PT and OT and discharge as per the recommendation (6) Pulmonary embolus: Plan: Found to have bilateral PEs during hospitalization at [facility] in 01/2022. S/P mechanical thrombectomy with IR and IVC filter placement. On Eliquis Will continue Eliquis on top of Plavix (7) CAD (coronary artery disease): Plan: S/P Stent Continue Plavix, Eliquis, atorvastatin, metoprolol (8) Hypertension: Plan: Hold lisinopril Monitor BP (9) MARYCARMEN (obstructive sleep apnea): Plan: Not using BiPAP (10) Abnormal CT scan: Plan: Possible renal cell carcinoma CT abdomen pelvis: 1. Stable exam compared to the 03/18/2022 study. 2. Rankin catheter within a decompressed or bladder again noted. Prostamegaly with urinary bladder wall thickening is again suggestive of chronic bladder outlet obstruction. Correlate with urinalysis to exclude cystitis. 3. No bowel obstruction or bowel wall thickening. 4. 1.8 cm right renal lesion suggestive of renal cell carcinoma again noted. 5. Nonobstructing bilateral nephrolithiasis. Patient reports is scheduled to have outpatient follow-up imaging for renal lesion DVT Prophylaxis On Eliquis Full code as per discussion with pt Follows with Dr Steele for routine care Admission and Anticipated Discharge Date Admission Date: March 23, 2022 Subjective 03/24/2022 Patient was seen and examined in telemetry unit in presence of the daughter and the He was admitted with ongoing dizziness associated with intractable nausea and vomiting and noted to have a small subacute stroke Still complaining of dizziness with ambulation but thinks that improved He denies any other symptoms associated with it 03/25/2022 The patient was seen and examined in telemetry unit He has been generally weak but denies any other significant symptoms Denies any fever and or chills No additional neurological symptoms Review of Systems Review of Systems: All systems reviewed and are unremarkable except as noted below Physical Exam Physical Exam: Lying in bed comfortably Constitutional: well developed, well nourished, + ill appearing and + obese Eyes: PERRL, conjunctivae normal, anicteric sclerae ENMT: external ear and nose normal, oropharynx normal Neck: trachea midline, no thyromegaly Respiratory: no respiratory distress Auscultation: lungs clear to auscultation bilaterally Cardiovascular: Rate/Rhythm: regular rate and regular rhythm; not tachycardic Heart Sounds: normal S1 and normal S2; no murmur Extremities: no edema Gastrointestinal (Abdomen): Inspection/Auscultation: normal bowel sounds; abdomen not distended Percussion/Palpation: abdomen nontender Musculoskeletal: No acute arthritis involving any joint Neurologic: + meningeal signs (Cannot move left leg due to neuropathy, minimal movement of the right leg); + abnormal touch/pain/proprioception (Has decreased sensation involving the left lower leg mainly) and + does not move all e xtremities Psychiatric: A+Ox3, euthymic affect Lymphatic: no cervical or axillary lymphadenopathy Results & Data Results & Data ([facility]) Vital Signs (Past 12 Hours) Vital Signs Temp Pulse Pulse Resp BP Pulse Ox O2 Del Method 03/25/22 11:12 36.8 C 78 17 107/64 97 Room Air 03/25/22 07:15 37.1 C 85 17 134/75 98 Room Air 03/25/22 03:51 36.3 C L 71 131/76 96 Room Air 03/25/22 01:52 82 03/25/22 00:08 37.3 C 81 133/73 97 Room Air Laboratory Results Short CBC 03/25/22 Range/Units 05:57 WBC 4.62 L (4.8-10.8) K/ul Hgb 9.9 L (14.0-18.0) g/dl Hct 30.0 L (40.1-51.0) % Plt Count 194 (130-400) K/uL [facility] 03/25/22 05:57 Sodium 138 Potassium 3.9 Chloride 109 H Carbon Dioxide 25 BUN 11 Creatinine 0.75 Glucose 88 Calcium 8.3 L Medications Administered Current Inpatient Medications Acetaminophen (Acetaminophen 325 Mg Tab) 650 mg PO Q4H PRN PRN Reason: Pain or Fever Stop: 04/22/22 19:26 Apixaban (Apixaban 5 Mg Tablet) 5 mg PO BID ILANA Stop: 04/22/22 20:59 Last Admin: 03/25/22 08:34 Dose: 5 mg Atorvastatin Calcium (Atorvastatin 40 Mg Tab) 40 mg PO HS ILANA Stop: 04/22/22 20:59 Last Admin: 03/24/22 21:44 Dose: 40 mg Clopidogrel Bisulfate (Clopidogrel Bisulfate 75 Mg Tab) 75 mg PO QAM ILANA Stop: 04/23/22 08:59 Last Admin: 03/25/22 08:34 Dose: 75 mg Duloxetine HCl (Duloxetine Hcl 60 Mg Cap) 60 mg PO QAM ILANA Stop: 04/23/22 08:59 Last Admin: 03/25/22 08:34 Dose: 60 mg Finasteride (Finasteride 5 Mg Tab) 5 mg PO QAM ILANA Stop: 04/23/22 08:59 Last Admin: 03/25/22 08:34 Dose: 5 mg Promethazine HCl 12.5 mg/ (Sodium Chloride) 50.5 mls @ 202 mls/hr IV Q6H PRN PRN Reason: Nausea And Vomiting Stop: 04/22/22 19:26 Last Infusion: 03/24/22 11:43 Dose: Infused Sodium Chloride (Nss 1000ml) 1,000 mls @ 100 mls/hr IV .Q10H [facility] Stop: 04/22/22 19:26 Last Admin: 03/25/22 03:54 Dose: 100 mls/hr Ceftriaxone Sodium 2,000 mg/ (Dextrose) 70 mls @ 100 mls/hr IV Q24H [facility]; Protocol Stop: 04/02/22 19:29 Last Infusion: 03/24/22 21:46 Dose: Infused Meclizine HCl (Meclizine Hcl 25 Mg Tab) 25 mg PO Q6H PRN PRN Reason: dizziness Stop: 04/22/22 19:26 Metoprolol Succinate (Metoprolol Succ 25mg Ext Rel Tab) 25 mg PO [facility] Stop: 04/23/22 08:59 Last Admin: 03/25/22 08:34 Dose: 25 mg Miscellaneous Information (Pharmacist Discharge Med Rec Consult) 1 each N/A UD PRN PRN Reason: Consult Stop: 04/22/22 19:26 Pantoprazole Sodium (Pantoprazole 40 Mg Tab) 40 mg PO [facility] Stop: 04/23/22 08:59 Last Admin: 03/25/22 08:34 Dose: 40 mg Polyethylene Glycol (Polyethylene (Miralax) 17 Gm Pack) 17 gm PO DAILY PRN PRN Reason: Constipation Stop: 04/22/22 19:26
[2022-03-25] MEDS: PROMETHAZINE HCL 12.5 MG in SODIUM CHLORIDE 0.9% 50 ML IV PRN (12:13)
[2022-03-25] MEDS ORDERED: ALUMINUM/MAGNESIUM SUSP 30 ML UDC PO PRN (14:19)
[2022-03-25] MEDS: cefTRIAXone SODIUM 2,000 MG in DEXTROSE 5% 50 ML IV SCH (19:48)
[2022-03-25] MEDS: ATORVASTATIN 40 MG TAB PO SCH (19:49)
[2022-03-25] MEDS: PROMETHAZINE HCL 25 MG in SODIUM CHLORIDE 0.9% 50 ML IV PRN (23:10)
[2022-03-26 07:56] LABS: Basophils # (auto) 0.03 K/uL (0-0.2); Basophils % (auto) 0.6 %; Eosinophils # (auto) 0.16 K/uL (0-0.50); Eosinophils % (auto) 3.1 %; Hemoglobin 10.7 g/dl (14.0-18.0); Immature Granulocytes # (auto) 0.03 K/uL (0.00-0.02); Immature Granulocytes % (auto) 0.6 %; Lymphocytes # (auto) 1.62 K/uL (1.2-3.4); Lymphocytes % (auto) 31.3 %; Mean Corpuscular Hemoglobin 29.8 pg (25.0-34.0); Mean Corpuscular Hgb Conc 34.5 g/dL (32.0-36.0); Mean Corpuscular Volume 86.4 fL (80.0-100.0); Mean Platelet Volume 9.5 fL (9.4-12.4); Monocytes # (auto) 0.47 K/uL (0.24-0.82); Monocytes % (auto) 9.1 %; Neutrophils # (auto) 2.86 K/uL (1.4-6.5); Neutrophils % (auto) 55.3 %; Platelet Count 218 K/uL (130-400); RDW Coefficient of Variation 13.9 % (11.5-14.5); RDW Standard Deviation 43.6 fL (36.4-46.3); Red Blood Count 3.59 M/uL (4.63-6.08); White Blood Count 5.17 K/ul (4.8-10.8)
[2022-03-26 08:13] LABS: Calcium 8.6 mg/dl (8.5-10.1); Creatinine Clr Calc Pharmacy 118.7 ml/min; Est GFR (African American) 109.4 ml/min; Est GFR (Non-African American) 94.4 ml/min; Potassium 3.5 mmol/L (3.5-5.1)
[2022-03-26] MEDS: APIXABAN 5 MG TABLET PO SCH ×2 (08:17→21:21)
[2022-03-26] MEDS: PANTOprazole 40 MG TAB PO SCH ×2 (08:17→21:21)
[2022-03-26] MEDS: ACETAMINOPHEN 325 MG TAB PO PRN (08:17)
[2022-03-26] MEDS: SODIUM CHLORIDE 0.9% 1000ML 1,000 ML IV SCH ×2 (08:17→21:18)
[2022-03-26] MEDS: DULoxetine HCL 60 MG CAP PO SCH (08:18)
[2022-03-26] MEDS: METOPROLOL SUCC 25MG EXT REL TAB PO SCH (08:18)
[2022-03-26] MEDS: FINASTERIDE 5 MG TAB PO SCH (08:18)
[2022-03-26] MEDS: CLOPIDOGREL BISULFATE 75 MG TAB PO SCH (08:18)
[2022-03-26] MEDS: PROMETHAZINE HCL 25 MG in SODIUM CHLORIDE 0.9% 50 ML IV PRN ×2 (08:34→17:15)
[2022-03-26 11:18] LABS: BUN Creatinine Ratio 9.7 (10-20)
--- NOTE | 2022-03-26 14:50 | Hospitalist Progress Note ---
Date of Service March 26, 2022 Assessment & Plan (1) CVA (cerebral vascular accident): Plan 81-year-old male with PMH of HTN, HLD, CAD status post stent, BPH, GERD, MARYCARMEN, lumbar degenerative disc disease with spinal stenosis with cauda equina syndrome status post L2-L5 decompression on 02/11/22 presented to the ED 03/23/22 with complaint of nausea and vomiting for 1 week [employer]. Of note, patient was again hospitalized at [facility] [place] 02/15/22 to 02/25/2022 for back pain, LE pain and weakness with several episodes of falling. Hospital course was complicated by developing mottling of lower extremities, hypotension, hypoxemia, BRITTON and patient found to have bilateral PEs when ECHO showed RV dysfunction from massive PE. He underwent mechanical thrombectomy with IR and IVC filter placement. Patient was initially treated with heparin and transition to Eliquis on 02/21/2022. Patient had urinary retention while in hospital and had to have Rankin catheter placed on 02/21/2022. [facility] and then discharged to home on 03/14/2021. Pt stated - since being home on 03/15/2021 had onset of dizziness with any movement of head and neck as well as with position change with associated nausea and vomiting.He is being managed for the following: (1) Dizziness: (2) Intractable nausea and vomiting: (3) CVA (cerebral vascular accident): Patient presents with dizziness, nausea, vomiting [see above] Admitting CTAP: No acute finding, 1.8 cm right renal lesion suggestive of RCC again noted. Admitting MRI brain: Few tiny subcentimeter foci of restricted diffusion within the centrum semiovale frontoparietal junctions compatible with acute to subacute watershed lacunar infarcts. Chronic lacunar infarcts of the cerebellum noted. 03/24 CTA head and neck: No significant stenosis/occlusion/dissection within the carotid or vertebral arteries. 03/24 echo: Ejection fraction 60 to 65%, normal LV wall thickness and systolic function. Right ventricle is normal in size and function. Neurology evaluated. Long-term SBP goal of less than 130, recommends ENT consult if dizziness persist. Continue with Plavix, Eliquis, statin. LDL 37 and A1c 5.4 this admission. PT/OT, patient making small progress, recommends rehab Outpatient consult with ENT will be beneficial upon discharge. Patient reports some improvement in his nausea, vomiting, dizziness but still with significant distress Continue with nausea control. IV fluid and small volume diet at a time as tolerated. (4) Urinary retention: #. CAUTI: Admitting UCx positive for Staph infeciton. History of BPH, urinary retention. Has current Rankin catheter in place. Rankin last changed 03/11/2022 per family To have outpatient urology follow-up with [facility] [place]rology nurse for Rankin removal on 04/07/2022 Continue ceftriaxone 03/23 and transition to oral Keflex on discharge (5) Status post lumbar surgery: History lumbar degenerative disease, stenosis, multilevel listhesis, severe cauda equina nerve compression S/P L2-L5 decompression by Dr. Mcleod on 02/11/22 at [facility] [place] Received adequate physical therapy at [facility] Was sent home from [facility] on around 14th of this month Has neuropathy involving the lower extremities We will continue PT and OT and discharge as per the recommendation (6) Pulmonary embolus: Found to have bilateral PEs during hospitalization at [facility] in 01/2022. S/P mechanical thrombectomy with IR and IVC filter placement. On Eliquis Will continue Eliquis on top of Plavix #. Other chronic medical conditions: CAD status post stent, HTN, MARYCARMEN [not using BiPAP] --- resume home meds as able #. Possible renal cell carcinoma: Noted on admitting CTAP [see above], patient states he is scheduled to have outpatient follow-up imaging for renal lesion, patient to follow-up with urology/oncology as an outpatient. #. DVT prophylaxis: On Eliquis #. Full code Admission and Anticipated Discharge Date Admission Date: March 23, 2022 Subjective Patient seen and examined at bedside as a follow-up of dizziness and intractable nausea and vomiting, CVA, history of urinary retention, status post recent lumbar surgery. Patient was sitting up in bed, eating his breakfast, on room air, reports ongoing nausea and vomiting, had his vomiting 5 hours prior to my exam, still feels dizzy when standing up, denies any pain, reports moving bowels every 3 days, denies other review of symptoms. Physical Exam Physical Exam: GENERAL: Alert and oriented x3. NAD, on RA. Overweight, ill- appearing. HEENT: No pallor, no icterus. Pupils equal, round and reactive to light. Oral mucosa moist. NECK: No JVD, no neck masses. HEART: S1 and S2 heard. Regular rate and rhythm. No murmur, no gallop. RESPIRATORY SYSTEM: Normal AP diameter. No accessory muscle use. No wheezing, no crackles. ABDOMEN: Soft, bowel sounds present, nontender, no distention. CENTRAL NERVOUS SYSTEM: No facial droop. Speech is clear. Obeys simple commands. Bilateral foot drop, chronic. EXTREMITIES: No edema, no erythema seen. Results & Data Results & Data ([facility]) Vital Signs (Past 12 Hours) Vital Signs Temp Pulse Pulse Resp BP Pulse Ox O2 Del Method 03/26/22 11:29 37.1 C 104 H 18 126/81 95 Room Air 03/26/22 07:00 90 03/26/22 06:55 36.7 C 92 H 17 133/72 97 Room Air 03/26/22 03:00 37.1 C 94 H 14 144/81 H 97 Room Air
[2022-03-26] MEDS: cefTRIAXone SODIUM 2,000 MG in DEXTROSE 5% 50 ML IV SCH (21:18)
[2022-03-26] MEDS: ATORVASTATIN 40 MG TAB PO SCH (21:21)
[2022-03-27] MEDS: PROMETHAZINE HCL 25 MG in SODIUM CHLORIDE 0.9% 50 ML IV PRN ×2 (00:02→08:03)
[2022-03-27] MEDS: METOPROLOL SUCC 25MG EXT REL TAB PO SCH (08:00)
[2022-03-27] MEDS: DULoxetine HCL 60 MG CAP PO SCH (08:00)
[2022-03-27] MEDS: CLOPIDOGREL BISULFATE 75 MG TAB PO SCH (08:00)
[2022-03-27] MEDS: APIXABAN 5 MG TABLET PO SCH ×2 (08:00→20:37)
[2022-03-27] MEDS: PANTOprazole 40 MG TAB PO SCH ×2 (08:01→20:38)
[2022-03-27] MEDS: FINASTERIDE 5 MG TAB PO SCH (08:01)
[2022-03-27 09:36] LABS: Calcium 8.5 mg/dl (8.5-10.1); Magnesium 1.6 mg/dl (1.7-2.4); Potassium 3.6 mmol/L (3.5-5.1)
[2022-03-27 09:42] LABS: BUN Creatinine Ratio 10.5 (10-20); Creatinine Clr Calc Pharmacy 97.1 ml/min; Est GFR (African American) 100.6 ml/min; Est GFR (Non-African American) 86.8 ml/min
[2022-03-27] MEDS: MAGNESIUM SULFATE / D5W 1 GM/100 ML BAG IV SCH ×2 (11:09→13:06)
[2022-03-27] MEDS: SODIUM CHLORIDE 0.9% 1000ML 1,000 ML IV SCH (11:09)
[2022-03-27] MEDS: ONDANSETRON INJ 2 MG/ML 2 ML VIAL IV PRN ×2 (11:45→20:35)
[2022-03-27 12:52] LABS: Hematocrit (blood only) 34.1 % (42.0-52.0); Hemoglobin 11.4 g/dl (14.0-18.0); Mean Corpuscular Hemoglobin 29.9 pg (25.0-34.0); Mean Corpuscular Hgb Conc 33.4 g/dL (32.0-36.0); Mean Corpuscular Volume 89.5 fL (80.0-100.0); Mean Platelet Volume 10.1 fL (9.4-12.4); Platelet Count 170 K/uL (130-400); RDW Coefficient of Variation 14.5 % (11.5-14.5); RDW Standard Deviation 46.5 fL (36.4-46.3); Red Blood Count 3.81 M/uL (4.70-6.10); White Blood Count 5.21 K/ul (4.8-10.8)
[2022-03-27] MEDS: ACETAMINOPHEN 325 MG TAB PO PRN (16:11)
--- NOTE | 2022-03-27 17:09 | Hospitalist Progress Note ---
Date of Service March 27, 2022 Assessment & Plan (1) CVA (cerebral vascular accident): Plan 81-year-old male with PMH of HTN, HLD, CAD status post stent, BPH, GERD, MARYCARMEN, lumbar degenerative disc disease with spinal stenosis with cauda equina syndrome status post L2-L5 decompression on 02/11/22 presented to the ED 03/23/22 with complaint of nausea and vomiting for 1 week [employer]. Of note, patient was again hospitalized at [facility] 02/15/22 to 02/25/2022 for back pain, LE pain and weakness with several episodes of falling. Hospital course was complicated by developing mottling of lower extremities, hypotension, hypoxemia, BRITTON and patient found to have bilateral PEs when ECHO showed RV dysfunction from massive PE. He underwent mechanical thrombectomy with IR and IVC filter placement. Patient was initially treated with heparin and transition to Eliquis on 02/21/2022. Patient had urinary retention while in hospital and had to have Rankin catheter placed on 02/21/2022. [facility] and then discharged to home on 03/14/2021. Pt stated - since being home on 03/15/2021 had onset of dizziness with any movement of head and neck as well as with position change with associated nausea and vomiting.He is being managed for the following: (1) Dizziness: (2) Intractable nausea and vomiting: (3) CVA (cerebral vascular accident): Patient presents with dizziness, nausea, vomiting [see above] Admitting CTAP: No acute finding, 1.8 cm right renal lesion suggestive of RCC again noted. Admitting MRI brain: Few tiny subcentimeter foci of restricted diffusion within the centrum semiovale frontoparietal junctions compatible with acute to subacute watershed lacunar infarcts. Chronic lacunar infarcts of the cerebellum noted. 03/24 CTA head and neck: No significant stenosis/occlusion/dissection within the carotid or vertebral arteries. 03/24 echo: Ejection fraction 60 to 65%, normal LV wall thickness and systolic function. Right ventricle is normal in size and function. Neurology evaluated. Long-term SBP goal of less than 130, recommends ENT consult if dizziness persist. Continue with Plavix, Eliquis, statin. LDL 37 and A1c 5.4 this admission. PT/OT, patient making small progress, recommends rehab Patient reports improving dizziness, still with nausea and vomiting. Discussed with patient , updated for about 10 minutes, she would like GI doctor to see him. Continue with nausea control. IV fluid and small volume diet at a time as tolerated. (4) Urinary retention: #. CAUTI: Admitting UCx positive for Staph infeciton. History of BPH, urinary retention. Has current Rankin catheter in place. Rankin last changed 03/11/2022 per family To have outpatient urology follow-up with [facility] urology nurse for Rankin removal on 04/07/2022 Continue ceftriaxone 03/23 and transition to oral Keflex on discharge. (5) Status post lumbar surgery: History lumbar degenerative disease, stenosis, multilevel listhesis, severe cauda equina nerve compression S/P L2-L5 decompression by Dr. Mcleod on 02/11/22 at [facility] Received adequate physical therapy at [facility] Was sent home from [facility] on around 14th of this month Has neuropathy involving the lower extremities We will continue PT and OT and discharge as per the recommendation (6) Pulmonary embolus: Found to have bilateral PEs during hospitalization at [facility] in 01/2022. S/P mechanical thrombectomy with IR and IVC filter placement. On Eliquis Will continue Eliquis on top of Plavix #. Other chronic medical conditions: CAD status post stent, HTN, MARYCARMEN [not using BiPAP] --- resume home meds as able #. Possible renal cell carcinoma: Noted on admitting CTAP [see above], patient states he is scheduled to have outpatient follow-up imaging for renal lesion, patient to follow-up with urology/oncology as an outpatient. #. DVT prophylaxis: On Eliquis #. Full code Admission and Anticipated Discharge Date Admission Date: March 23, 2022 Subjective Patient seen and examined at bedside as a follow-up of dizziness and intractable nausea and vomiting, CVA, history of urinary retention, status post recent lumbar surgery. Patient was lying in bed, on room air, reports ongoing nausea and vomiting, had 2 vomiting today by afternoon per , not dizzy now when standing up, denies any pain, reports last bm 4 days ago, denies other review of symptoms. Physical Exam Physical Exam: GENERAL: Alert and oriented x3. NAD, on RA. Overweight, ill- appearing. HEENT: No pallor, no icterus. Pupils equal, round and reactive to light. Oral mucosa moist. NECK: No JVD, no neck masses. HEART: S1 and S2 heard. Regular rate and rhythm. No murmur, no gallop. RESPIRATORY SYSTEM: Normal AP diameter. No accessory muscle use. No wheezing, no crackles. ABDOMEN: Soft, bowel sounds present, nontender, no distention. CENTRAL NERVOUS SYSTEM: No facial droop. Speech is clear. Obeys simple commands. Bilateral foot drop, chronic. EXTREMITIES: No edema, no erythema seen. Results & Data Results & Data ([facility]) Vital Signs (Past 12 Hours) Vital Signs Temp Pulse Pulse Resp BP Pulse Ox O2 Del Method 03/27/22 15:49 84 03/27/22 15:29 37.0 C 84 17 156/85 H 95 Room Air 03/27/22 10:46 37.1 C 86 17 131/78 98 Room Air 03/27/22 10:32 80 03/27/22 07:17 36.6 C 82 17 154/82 H 99 Room Air
[2022-03-27] MEDS: DOCUSATE SODIUM 100 MG CAP PO SCH ×2 (18:08→20:37)
[2022-03-27] MEDS: cefTRIAXone SODIUM 2,000 MG in DEXTROSE 5% 50 ML IV SCH (20:35)
[2022-03-27] MEDS: ATORVASTATIN 40 MG TAB PO SCH (20:38)
[2022-03-28] MEDS: SODIUM CHLORIDE 0.9% 1000ML 1,000 ML IV SCH (03:04)
[2022-03-28] MEDS: PANTOprazole 40 MG TAB PO SCH ×2 (08:09→20:43)
[2022-03-28] MEDS: CLOPIDOGREL BISULFATE 75 MG TAB PO SCH (08:09)
[2022-03-28] MEDS: DULoxetine HCL 60 MG CAP PO SCH (08:09)
[2022-03-28] MEDS: APIXABAN 5 MG TABLET PO SCH ×2 (08:09→20:44)
[2022-03-28] MEDS: DOCUSATE SODIUM 100 MG CAP PO SCH ×2 (08:09→20:44)
[2022-03-28] MEDS: FINASTERIDE 5 MG TAB PO SCH (08:09)
[2022-03-28] MEDS: METOPROLOL SUCC 25MG EXT REL TAB PO SCH (08:09)
[2022-03-28 08:58] LABS: Hematocrit (blood only) 32.8 % (42.0-52.0); Hemoglobin 10.8 g/dl (14.0-18.0); Mean Corpuscular Hemoglobin 29.5 pg (25.0-34.0); Mean Corpuscular Hgb Conc 32.9 g/dL (32.0-36.0); Mean Corpuscular Volume 89.6 fL (80.0-100.0); Mean Platelet Volume 9.6 fL (9.4-12.4); Platelet Count 209 K/uL (130-400); RDW Coefficient of Variation 14.5 % (11.5-14.5); RDW Standard Deviation 47.4 fL (36.4-46.3); Red Blood Count 3.66 M/uL (4.70-6.10); White Blood Count 5.21 K/ul (4.8-10.8)
[2022-03-28 09:14] LABS: Calcium 8.5 mg/dl (8.5-10.1); Magnesium 1.8 mg/dl (1.7-2.4); Potassium 3.6 mmol/L (3.5-5.1)
[2022-03-28 09:20] LABS: BUN Creatinine Ratio 8.6 (10-20); Creatinine Clr Calc Pharmacy 106.8 ml/min; Est GFR (Non-African American) 89.8 ml/min; Phosphorus 3.2 mg/dl (2.5-4.9)
--- NOTE | 2022-03-28 11:17 | Gastrointestinal Consultation ---
Date of Consultation March 28, 2022 Assessment & Plan (1) Intractable nausea and vomiting: Patient is a 81 years old male currently seen for intractable nausea and vomiting symptoms which seems to be associated with dizziness. His past medical history is quite significant as noted in HPI above with recent issues of cauda equina syndrome s/p L2-L5 decompression in the last month, PE status post mechanical thrombectomy by IR and IVC filter placement on Eliquis. His most recent brain MRI showed lacunar infarcts. Wonder if his dizziness may be related to this, thus causing his nausea and vomiting symptoms as well. Quite unremarkable exam of his CT abdomen and pelvis without any signs of inflammation or obstruction. He was able to tolerate solid meals last night and this morning. Feels that the current antiemetics is receiving are quite helpful. - Diet as tolerated - Antiemetics prn - Protonix 40mg BID - Colace 100mg BID; add Miralax 17g daily - Never had EGD before but would defer EGD evaluation given improvement of symptoms and recent stroke. - Recall GI PRN Supervising Physician Co-Signing Physician Notes I saw and evaluated the patient, we were consulted with regard to onset of nausea. The patient reports that his nausea has subsequently resolved and he is presently tolerating a normal diet. It appears that he is listed for discharge today. As he has had numerous recent medical issues upper endoscopy is probably not in his best interest at the present time given his recent pulmonary embolus. After review of his medications he is on Cymbalta which is known to cause nausea. Physical examination Really male, no obvious distress no abdominal tenderness Recommendations Patient with a history of nausea, I wonder about duloxetine as a possible contributing factor. GI to sign off, will hold on endoscopy given his recent pulmonary emboli today Please reconsult should History of Present Illness Reason for Consultation: Nausea and vomiting Requesting Physician: Dr. Umu Fuentes Attending Physician: Dr. Samuel Trotter History of Present Illness Pt is a 81 yo male w PMHx of HTN, dyslipidemia, CAD s/p stent, BPH, GERD, MARYCARMEN, lumbar degenerative disc disease with spinal stenosis with cauda equina syndrome s/p L2-L5 decompression in the last month, PE status post mechanical thrombectomy by IR and IVC filter placement currently on Eliquis. He was just discharged from [facility] about 2 weeks ago and states that since reaching home he started getting dizziness with positional changes and movement of his head and neck. This seems to trigger nausea and vomiting symptoms. Was seen at this hospital's ER about 10 days ago, with no acute findings on the CT head, abdomen and pelvis at that time. Symptoms of dizziness, nausea and vomiting persists and he returns again today to ED 4 days ago. This time brain MRI showed signs of acute to subacute lacunar infarcts. He has been seen by neurology. Currently on Eliquis, Plavix, statin. Repeat CT of the abdomen and pelvis without any acute inflammatory, or obstructive processes. He does appear to have suggestive signs of obstructive uropathy and a right kidney lesion concerning for renal cell carcinoma. Is examined sitting up in his bedside chair. States that he was able to tolerate solid meals last night and this morning. He seems to have nausea and vomiting whenever he transfer from his bed to chair as it causes him to feel dizzy. Otherwise he denies any abdominal pain. He does report that his last bowel movement was about 4 days ago currently feels a bit gassy. Denies ever having any hematemesis, or coffee-ground emesis. Allergies Allergy/AdvReac Type Severity Reaction Status Date / Time Sulfa (Sulfonamide Allergy Intermediate rash Verified 03/23/22 16:15 Antibiotics) Home Medications Medication Instructions Recorded Confirmed Type amoxicillin 500 mg capsule 2,000 mg PO DIRECTED PRN DENTAL 11/20/18 03/23/22 History APPOINTMENTS duloxetine 60 mg capsule,delayed 60 mg PO QAM 11/20/18 03/23/22 History release metoprolol succinate 25 mg 25 mg PO QAM #90 tabs 11/20/18 03/23/22 History tablet,extended release 24 hr nitroglycerin 0.4 mg sublingual 0.4 mg sublingual Q5M PRN chest 11/20/18 03/23/22 History tablet pain #25 tabs multivitamin (Daily Multi-Vitamin 1 tab PO QAM 01/03/19 03/23/22 History tablet) pantoprazole 40 mg tablet,delayed 40 mg PO QAM 05/18/20 03/23/22 History release finasteride 5 mg tablet 5 mg PO QAM 09/05/21 03/23/22 History acetaminophen 500 mg tablet 500 mg PO AMHS 11/15/21 03/23/22 History (Tylenol Extra Strength) clopidogrel 75 mg tablet 75 mg PO QAM 02/15/22 03/23/22 History tizanidine 4 mg tablet 4 mg PO DIRECTED PRN MUSCLE 02/15/22 03/23/22 History SPASMS apixaban 5 mg tablet (Eliquis) 5 mg PO BID 03/18/22 03/23/22 History diclofenac sodium 1 % topical gel 2 g topical QID 03/18/22 03/23/22 History lisinopril 5 mg tablet 5 mg PO QAM 03/18/22 03/23/22 History melatonin 3 mg tablet 3 mg PO HS 03/18/22 03/23/22 History ondansetron 4 mg disintegrating 4 mg PO Q8H PRN nausea and 03/18/22 03/23/22 Rx tablet vomiting #30 tabs scopolamine base 1 mg over 3 days 1 patch transdermal Q3D PRN 03/18/22 03/23/22 History transdermal patch NEEDED atorvastatin 40 mg tablet 40 mg PO HS 03/23/22 03/23/22 History Patient History Medical History Anemia Aortic regurgitation CAD (coronary artery disease) Dilated aortic root Diverticulosis GERD (gastroesophageal reflux disease) History of myocardial infarction 01/2011 - follows w/ Dr. Macdonald History of nephritis as a child Hyperlipidemia Hypertension Idiopathic peripheral neuropathy Irregular heart beat Obesity Obstructive sleep apnea CPAP MARYCARMEN (obstructive sleep apnea) Osteoarthritis Overactive bladder Peripheral neuropathy Pulmonary embolus Seizure-like activity 35 years ago - 2 convulsive episodes following outpatient surgery (excision pilonidal cyst) -- says he followed with neurologist x 6 months; seizure work up was neg -- no issues since Spinal stenosis cervical and lumbar Surgical History History of anesthesia reaction 35 years ago - 2 convulsive episodes following outpatient surgery (excision pilonidal cyst) -- says he followed with neurologist x 6 months; seizure work up was neg -- no issues since History of arthroscopy of both knees History of cardiac cath 2010 - [facility] - stents x 2 History of colonoscopy History of excision of mass Rt axillary - benign History of heart artery stent x 2 History of surgical removal of pilonidal cyst History of thumb surgery Rt Hx of laminectomy S/p bilateral carpal tunnel release S/P left rotator cuff repair S/P tonsillectomy S/P total knee arthroplasty BL Family History Father Gastric cancer PONV (postoperative nausea and vomiting) Mother Lymphoma Colon cancer Brother Prostate cancer PONV (postoperative nausea and vomiting) Social History Smoking Status: Former smoker Tobacco Type: Cigars Second Hand Exposure: No; Hx Alcohol Use: Yes Alcohol type: beer Hx Substance Use: No Preferred Language: Armenian Communication Ability: Effective Road Maker Required: No Beliefs That Will Affect Care: None marital status: Current Living Situation: Spouse current occupational status: retired Feels Safe at Home: Yes Assistive Devices: Special Shoe and Walker Review of Systems Review of Systems: All systems reviewed & are unremarkable except as noted in HPI & below Physical Exam Constitutional: WD/WN, vitals as above well groomed, cooperative and comfortable Eyes: PERRL, conjunctivae normal, anicteric sclerae ENMT: external ear and nose normal, oropharynx normal Respiratory: normal respiratory effort, lungs clear to auscultation Cardiovascular: RRR, no murmur, no edema Gastrointestinal (Abdomen): normal bowel sounds, soft, nontender, no hepatosplenomegaly Skin: no rashes, warm and dry no jaundice Psychiatric: A+Ox3, euthymic affect Lymphatic: no lymphedema Results & Data ([facility]) Vital Signs (Past 12 Hours) Vital Signs Temp Pulse Pulse Resp BP Pulse Ox O2 Del Method 03/28/22 06:33 36.5 C 77 18 138/80 97 Room Air 03/28/22 04:23 83 03/28/22 03:01 36.6 C 84 18 152/76 H 94 Room Air 03/27/22 23:20 37.0 C 80 18 121/73 96 Room Air
--- NOTE | 2022-03-28 14:21 | Hospitalist Progress Note ---
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 Of note, patient was again hospitalized at [facility] 02/15/22 to 02/25/2022 for back pain, LE pain and weakness with several episodes of falling. Hospital course was complicated by developing mottling of lower extremities, hypotension, hypoxemia, BRITTON and patient found to have bilateral PEs when ECHO showed RV dysfunction from massive PE. He underwent mechanical thrombectomy with IR and IVC filter placement. Patient was initially treated with heparin and transition to Eliquis on 02/21/2022. Patient had urinary retention while in hospital and had to have Rankin catheter placed on 02/21/2022. He was discharged to [facility] and then discharged to home on 03/14/2021. Pt stated - since being home on 03/15/2021 had onset of dizziness with any movement of head and neck as well as with position change with associated nausea and vomiting.He is being managed for the following: (1) Dizziness: (2) Intractable nausea and vomiting: (3) CVA (cerebral vascular accident): Patient presents with dizziness, nausea, vomiting [see above] Admitting CTAP: No acute finding, 1.8 cm right renal lesion suggestive of RCC again noted. Admitting MRI brain: Few tiny subcentimeter foci of restricted diffusion within the centrum semiovale frontoparietal junctions compatible with acute to subacute watershed lacunar infarcts. Chronic lacunar infarcts of the cerebellum noted. 03/24 CTA head and neck: No significant stenosis/occlusion/dissection within the carotid or vertebral arteries. 03/24 echo: Ejection fraction 60 to 65%, normal LV wall thickness and systolic function. Right ventricle is normal in size and function. Neurology evaluated. Long-term SBP goal of less than 130, recommends ENT consult if dizziness persist. Continue with Plavix, Eliquis, statin. LDL 37 and A1c 5.4 this admission. PT/OT, patient making progress, recommends rehab - which patient had been decl ining all along. Patient reports improving dizziness, reports improving nausea and vomiting and is able to eat better. No nausea medication since yesterday. Called patient's over the phone for possible discharge today as patient does not like to go to rehab, initially she wanted patient to be here in the hospital 2 more days (and then she will take him home) despite updating that he did not have any vomiting since yesterday and he has not required any nausea medication since yesterday and has been able to eat better. Then she brought up the issue that patient cannot walk which has been ongoing after his lumbar surgery and physical therapy has been recommending rehab since the beginning but patient was declining all along. Now the patient's wants him to go to rehab, same has been communicated to the employment case manager. Continue with nausea control as needed. DC IV fluid as pt eating better. and small volume diet at a time as tolerated. (4) Urinary retention: #. CAUTI: Admitting UCx positive for Staph infeciton. History of BPH, urinary retention. Has current Rankin catheter in place. Rankin last changed 03/11/2022 per family To have outpatient urology follow[place] [facility] [place] for Rankin removal on 04/07/2022 Continue ceftriaxone 03/23 and DC after today's dose. (5) Status post lumbar surgery: History lumbar degenerative disease, stenosis, multilevel listhesis, severe cauda equina nerve compression S/P L2-L5 decompression by Dr. Mcleod on 02/11/22 at [facility] Received adequate physical therapy at [facility] Was sent home from [facility] on around 14th of this month Has neuropathy involving the lower extremities We will continue PT and OT and discharge as per the recommendation (6) Pulmonary embolus: Found to have bilateral PEs during hospitalization at [facility] in 01/2022. S/P mechanical thrombectomy with IR and IVC filter placement. On Eliquis Will continue Eliquis on top of Plavix #. Other chronic medical conditions: CAD status post stent, HTN, MARYCARMEN [not using BiPAP] --- resume home meds as able #. Possible renal cell carcinoma: Noted on admitting CTAP [see above], patient states he is scheduled to have outpatient follow-up imaging for renal lesion, patient to follow-up with urology/oncology as an outpatient. #. DVT prophylaxis: On Eliquis #. Full code #. Disposition: Pt's wants him to go to rehab, Pt stable medically, CM to assist with DC planning. Admission and Anticipated Discharge Date Admission Date: March 23, 2022 Subjective Patient seen and examined at bedside as a follow-up of dizziness and intractable nausea and vomiting, CVA, history of urinary retention, status post recent lumbar surgery. Patient was sitting up in chair working with OT [upon discussion with OT, patient did not have any dizziness or nausea or vomiting while working with him], on room air, reports last vomiting yesterday afternoon which was a spoonful only per him, has been able to eat better and feels better, not dizzy now when standing up, denies any pain, reports last bm 4-5 days ago, Colace has been on board, MiraLAX has been added. Denies other review of symptoms. Physical Exam Physical Exam: GENERAL: Alert and oriented x3. NAD, on RA. Overweight. HEENT: No pallor, no icterus. Pupils equal, round and reactive to light. Oral mucosa moist. NECK: No JVD, no neck masses. HEART: S1 and S2 heard. Regular rate and rhythm. No murmur, no gallop. RESPIRATORY SYSTEM: Normal AP diameter. No accessory muscle use. No wheezing, no crackles. ABDOMEN: Soft, bowel sounds present, nontender, no distention. CENTRAL NERVOUS SYSTEM: No facial droop. Speech is clear. Obeys simple commands. Bilateral foot drop, chronic. EXTREMITIES: No edema, no erythema seen. Results & Data Results & Data ([facility]) Vital Signs (Past 12 Hours) Vital Signs Temp Pulse Pulse Resp BP Pulse Ox O2 Del Method 03/28/22 11:45 36.6 C 88 18 143/52 H 98 Room Air 03/28/22 08:15 83 03/28/22 06:33 36.5 C 77 18 138/80 97 Room Air 03/28/22 04:23 83 03/28/22 03:01 36.6 C 84 18 152/76 H 94 Room Air
[2022-03-28] MEDS: cefTRIAXone SODIUM 2,000 MG in DEXTROSE 5% 50 ML IV SCH (20:15)
[2022-03-28] MEDS: ATORVASTATIN 40 MG TAB PO SCH (20:44)
[2022-03-29] MEDS ORDERED: SODIUM CHLORIDE 0.9% 1000ML 1,000 ML IV SCH (09:30)
[2022-03-29] MEDS: METOPROLOL SUCC 25MG EXT REL TAB PO SCH (09:37)
[2022-03-29] MEDS: PANTOprazole 40 MG TAB PO SCH ×2 (09:37→21:21)
[2022-03-29] MEDS: POLYETHYLENE (MIRALAX) 17 GM PACK PO SCH (09:37)
[2022-03-29] MEDS: DULoxetine HCL 60 MG CAP PO SCH (09:37)
[2022-03-29] MEDS: FINASTERIDE 5 MG TAB PO SCH (09:37)
[2022-03-29] MEDS: CLOPIDOGREL BISULFATE 75 MG TAB PO SCH (09:37)
[2022-03-29] MEDS: APIXABAN 5 MG TABLET PO SCH ×2 (09:37→21:22)
[2022-03-29] MEDS: DOCUSATE SODIUM 100 MG CAP PO SCH ×2 (09:37→21:22)
[2022-03-29] MEDS: ONDANSETRON INJ 2 MG/ML 2 ML VIAL IV PRN ×3 (11:06→21:27)
--- NOTE | 2022-03-29 13:45 | Hospitalist Progress Note ---
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 Of note, [place] was [place] [facility] [place]25[place] for back pain, LE pain and weakness with several episodes of falling. Hospital course was complicated by developing mottling of lower extremities, hypotension, hypoxemia, BRITTON and patient found to have bilateral PEs when ECHO showed RV dysfunction from massive PE. He underwent mechanical thrombectomy with IR and IVC filter placement. Patient was initially treated with heparin and transition to Eliquis on 02/21/2022. Patient had urinary retention while in hospital and had to have Rankin catheter placed on 02/21/2022. He was discharged to [facility] and then discharged to home on 03/14/2021. Pt stated - since being home on 03/15/2021 had onset of dizziness with any movement of head and neck as well as with position change with associated nausea and vomiting.He is being managed for the following: (1) Dizziness: (2) Intractable nausea and vomiting: (3) CVA (cerebral vascular accident): Patient presents with dizziness, nausea, vomiting [see above] Admitting CTAP: No acute finding, 1.8 cm right renal lesion suggestive of RCC again noted. Admitting MRI brain: Few tiny subcentimeter foci of restricted diffusion within the centrum semiovale frontoparietal junctions compatible with acute to subacute watershed lacunar infarcts. Chronic lacunar infarcts of the cerebellum noted. 03/24 CTA head and neck: No significant stenosis/occlusion/dissection within the carotid or vertebral arteries. 03/24 echo: Ejection fraction 60 to 65%, normal LV wall thickness and systolic function. Right ventricle is normal in size and function. Neurology evaluated. Long-term SBP goal of less than 130, recommends ENT consult if dizziness persist. Continue with Plavix, Eliquis, statin. LDL 37 and A1c 5.4 this admission. Could be his cerebellar lacunar infarct be the reason for his nausea and vomit ing. GI evaled, appreciate recs. If with persistent N/V, pt will benefit from following up w/ GI as OP along with his neurology f/u. PT/OT, patient making progress, recommends rehab - now pt and family wants rehab, cm working on the behalf. Patient reports improving dizziness, recurrence of nausea and vomiting, pt has not been asking for prn nausea meds/denying them when offered as "he believes it won't help him". Pt has been counselled in detail and encouraged to make note of how he feels after using nausea meds. Continue with nausea control as needed. DC IV fluid when pt eating better. and small volume diet at a time as tolerated. (4) Urinary retention: #. CAUTI: Admitting UCx positive for Staph infeciton. History of BPH, urinary retention. Has current Rankin catheter in place. Rankin last changed 03/11/2022 per family To have outpatient urology follow-up with [facility] urology nurse for Rankin removal on 04/07/2022 Continue ceftriaxone 03/23-s/p atb course. (5) Status post lumbar surgery: History lumbar degenerative disease, stenosis, multilevel listhesis, severe cauda equina nerve compression S/P L2-L5 decompression by Dr. Mcleod [place]11/[place] [facility] Received adequate physical therapy at [facility] Was sent home from [facility] on around 14th of this month Has neuropathy involving the lower extremities We will continue PT and OT and discharge as per the recommendation (6) Pulmonary embolus: Found to have bilateral PEs during hospitalization [place] [facility] [place]. S/P mechanical thrombectomy with IR and IVC filter placement. On Eliquis #. Other chronic medical conditions: CAD status post stent, HTN, MARYCARMEN [not using BiPAP] --- resume home meds as able #. Possible renal cell carcinoma: Noted on admitting CTAP [see above], patient states he is scheduled to have outpatient follow-up imaging for renal lesion, patient to follow-up with urology/oncology as an outpatient. #. DVT prophylaxis: On Eliquis #. Full code #. Disposition: PT/OT OLIVIER ty to assist with DC planning. Pt will need rehab. Admission and Anticipated Discharge Date Admission Date: March 23, 2022 Subjective Patient seen and examined at bedside as a follow-up of dizziness and intractable nausea and vomiting, CVA, history of urinary retention, status post recent lumbar surgery. Patient was lying in bed, reports having 8 vomiting overnight (b/w 8 pm to 8 am; none outside of that window) of which three had some vomitus and rest was mostly dry heaves per pt. Pt has been trying not to use the prn nausea meds as he thinks it won't do him good. Pt counselled to use the different prn nausea meds put in the system, if he has any reaction/side effects, requested to make note of them so that we can discuss later. Pt seemed understanding. Because of fear of nause, he hasn't eaten breakfast, advised to try the lunc and can ask for prn nausea meds prior to meal if w/ fear/nausea/vomiting. Pt on room air, not dizzy now when standing up, denies any pain, reports last bm 4-5 days ago but is gassy now and has taken miralax. Denies other review of symptoms. Physical Exam Physical Exam: GENERAL: Alert and oriented x3. NAD, on RA. Overweight. HEENT: No pallor, no icterus. Pupils equal, round and reactive to light. Oral mucosa moist. NECK: No JVD, no neck masses. HEART: S1 and S2 heard. Regular rate and rhythm. No murmur, no gallop. RESPIRATORY SYSTEM: Normal AP diameter. No accessory muscle use. No wheezing, no crackles. ABDOMEN: Soft, bowel sounds present, nontender, no distention. CENTRAL NERVOUS SYSTEM: No facial droop. Speech is clear. Obeys simple commands. Bilateral foot drop, chronic. EXTREMITIES: No edema, no erythema seen. Results & Data Results & Data ([facility]) Vital Signs (Past 12 Hours) Vital Signs Temp Pulse Pulse Resp BP Pulse Ox O2 Del Method 03/29/22 08:00 79 03/29/22 11:06 36.8 C 86 18 166/86 H 98 Room Air 03/29/22 07:31 36.4 C L 81 16 156/87 H 99 Room Air 03/29/22 03:06 36.7 C 87 18 155/87 H 97 Room Air
[2022-03-29] MEDS: ADVANCED PROBIOTIC 1250 MG CAPSULE PO SCH (14:04)
[2022-03-29] MEDS: ACETAMINOPHEN 325 MG TAB PO PRN (15:43)
[2022-03-29] MEDS: ATORVASTATIN 40 MG TAB PO SCH (21:21)
[2022-03-30] MEDS: PROMETHAZINE HCL 25 MG in SODIUM CHLORIDE 0.9% 50 ML IV PRN (07:51)
[2022-03-30] MEDS: METOPROLOL SUCC 25MG EXT REL TAB PO SCH (08:27)
[2022-03-30] MEDS: PANTOprazole 40 MG TAB PO SCH ×2 (08:27→21:04)
[2022-03-30] MEDS: CLOPIDOGREL BISULFATE 75 MG TAB PO SCH (08:27)
[2022-03-30] MEDS: FINASTERIDE 5 MG TAB PO SCH (08:27)
[2022-03-30] MEDS: POLYETHYLENE (MIRALAX) 17 GM PACK PO SCH (08:27)
[2022-03-30] MEDS: APIXABAN 5 MG TABLET PO SCH ×2 (08:27→21:04)
[2022-03-30] MEDS: DULoxetine HCL 60 MG CAP PO SCH (08:27)
[2022-03-30] MEDS: ADVANCED PROBIOTIC 1250 MG CAPSULE PO SCH (08:27)
[2022-03-30] MEDS: DOCUSATE SODIUM 100 MG CAP PO SCH ×2 (08:27→21:03)
--- NOTE | 2022-03-30 13:32 | Hospitalist Progress Note ---
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 Of note, patient was again hospitalized at [facility] [place] to 02/25/2022 for back pain, LE pain and weakness with several episodes of falling. Hospital course was complicated by developing mottling of lower extremities, hypotension, hypoxemia, BRITTON and patient found to have bilateral PEs when ECHO showed RV dysfunction from massive PE. He underwent mechanical thrombectomy with IR and IVC filter placement. Patient was initially treated with heparin and transition to Eliquis on 02/21/2022. Patient had urinary retention while in hospital and had to have Rankin catheter placed on 02/21/2022. [facility] and then discharged to home on 03/14/2021. Pt stated - since being home on 03/15/2021 had onset of dizziness with any movement of head and neck as well as with position change with associated nausea and vomiting.He is being managed for the following: (1) Dizziness: (2) Intractable nausea and vomiting: (3) CVA (cerebral vascular accident): Patient presents with dizziness, nausea, vomiting [see above] Admitting CTAP: No acute finding, 1.8 cm right renal lesion suggestive of RCC again noted. Admitting MRI brain: Few tiny subcentimeter foci of restricted diffusion within the centrum semiovale frontoparietal junctions compatible with acute to subacute watershed lacunar infarcts. Chronic lacunar infarcts of the cerebellum noted. 03/24 CTA head and neck: No significant stenosis/occlusion/dissection within the carotid or vertebral arteries. 03/24 echo: Ejection fraction 60 to 65%, normal LV wall thickness and systolic function. Right ventricle is normal in size and function. Neurology evaluated. Long-term SBP goal of less than 130, recommends ENT consult if dizziness persist. Continue with Plavix, Eliquis, statin. LDL 37 and A1c 5.4 this admission. His cerebellar lacunar infarct likely could be the reason for his nausea and v omiting vs other GI causes. GI evaled, appreciate recs. If with persistent N/V, pt will benefit from following up w/ GI as OP along with his neurology f/u. PT/OT, patient making progress, recommends rehab - now pt and family wants rehab, cm working on it. Patient reports improving dizziness, recurrence of nausea and vomiting -- now getting better w/ use of prn nausea meds. Continue with nausea control as needed. Pt eating better. and small volume diet at a time as tolerated. (4) Urinary retention: #. CAUTI: Admitting UCx positive for Staph infeciton. History of BPH, urinary retention. Has current Rankin catheter in place. Rankin last changed 03/11/2022 per family To have outpatient urology follow-up with [facility] [place]rology nurse for Rankin removal on 04/07/2022 Status post antibiotic course. (5) Status post lumbar surgery: History lumbar degenerative disease, stenosis, multilevel listhesis, severe cauda equina nerve compression S/P L2-L5 decompression by Dr. Mcleod on 02/11/22 at [facility] Received adequate physical therapy at [facility] Was sent home from [facility] on around 14th of this month Has neuropathy involving the lower extremities We will continue PT and OT and discharge as per the recommendation (6) Pulmonary embolus: Found to have bilateral PEs during hospitalization at [facility] in 01/2022. S/P mechanical thrombectomy with IR and IVC filter placement. On Eliquis #. Other chronic medical conditions: CAD status post stent, HTN, MARYCARMEN [not using BiPAP] --- resume home meds as able #. Possible renal cell carcinoma: Noted on admitting CTAP [see above], patient states he is scheduled to have outpatient follow-up imaging for renal lesion, patient to follow-up with urology/oncology as an outpatient. #. DVT prophylaxis: On Eliquis #. Full code #. Disposition: PT/OT OLIVIER ty to assist with DC planning. Pt will need rehab. Admission and Anticipated Discharge Date Admission Date: March 23, 2022 Subjective Patient seen and examined at bedside as a follow-up of dizziness and intractable nausea and vomiting, CVA, history of urinary retention, status post recent lumbar surgery. Patient was lying in bed, reports having 1 vomiting today since yesterday afternoon, pt has been using prn nausea meds now, fairly tolerating the meds, no issues. Pt on room air, not dizzy lately when standing up, denies any pain, reports last bm 4-5 days ago but is gassy now and has been taking miralax. No belly pain. Denies other review of symptoms. lactulose po 1 time dose if not w/ bm. Physical Exam Physical Exam: GENERAL: Alert and oriented x3. NAD, on RA. Overweight. HEENT: No pallor, no icterus. Pupils equal, round and reactive to light. Oral mucosa moist. NECK: No JVD, no neck masses. HEART: S1 and S2 heard. Regular rate and rhythm. No murmur, no gallop. RESPIRATORY SYSTEM: Normal AP diameter. No accessory muscle use. No wheezing, no crackles. ABDOMEN: Soft, bowel sounds present, nontender, no distention. CENTRAL NERVOUS SYSTEM: No facial droop. Speech is clear. Obeys simple commands. Bilateral foot drop, chronic. EXTREMITIES: No edema, no erythema seen. Results & Data Results & Data ([facility]) Vital Signs (Past 12 Hours) Vital Signs Temp Pulse Pulse Resp BP Pulse Ox O2 Del Method 03/30/22 07:30 91 H 03/30/22 07:33 36.5 C 91 H 14 148/81 H 98 Room Air 03/30/22 05:33 87 03/30/22 03:29 36.9 C 101 H 18 140/86 96 Room Air
[2022-03-30] MEDS ORDERED: LACTULOSE SYRUP 20 GM/30 ML UDC PO ONE (13:41)
--- NOTE | 2022-03-30 14:58 | XRay Report ---
XR lumbar spine 2-3V CLINICAL HISTORY: lumbar bulge ? increasing; recent Sx. COMPARISON STUDY: CT of the abdomen and pelvis March 23, 2012. Lumbar spine MRI February 15, 2022. FINDINGS: IVC filter is incidentally noted. There is mild leftward curvature of the lumbar spine. Mil d anterolisthesis of L4 and L5 is due to bilateral L4 pars defects. No lumbar spine fracture is noted . There is severe disc space narrowing at L4-L5 and moderate to space narrowing at L5-S1. Status post L2-L5 laminectomy. Severe facet arthrosis. IMPRESSION: 1. No acute lumbar spine fracture. 2. Status post L2-L5 laminectomy. 3. Severe multilevel degenerative changes within the lumbar spine. ACT 112: Negative or not required by law. Electronically signed by: Jacinto Quintero M.D. 03/30/2022 2:57 PM
[2022-03-30] MEDS: ATORVASTATIN 40 MG TAB PO SCH (21:04)
[2022-03-31 07:17] LABS: Hematocrit (blood only) 31.4 % (42.0-52.0); Hemoglobin 10.5 g/dl (14.0-18.0); Mean Corpuscular Hemoglobin 29.6 pg (25.0-34.0); Mean Corpuscular Hgb Conc 33.4 g/dL (32.0-36.0); Mean Corpuscular Volume 88.5 fL (80.0-100.0); Mean Platelet Volume 9.3 fL (9.4-12.4); Platelet Count 206 K/uL (130-400); RDW Coefficient of Variation 14.3 % (11.5-14.5); RDW Standard Deviation 46.8 fL (36.4-46.3); Red Blood Count 3.55 M/uL (4.70-6.10); White Blood Count 4.89 K/ul (4.8-10.8)
[2022-03-31 07:45] LABS: Calcium 8.8 mg/dl (8.5-10.1); Magnesium 1.6 mg/dl (1.7-2.4); Potassium 3.5 mmol/L (3.5-5.1)
[2022-03-31 07:51] LABS: BUN Creatinine Ratio 11.7 (10-20); Creatinine Clr Calc Pharmacy 96.1 ml/min; Est GFR (Non-African American) 86.3 ml/min
[2022-03-31] MEDS: FINASTERIDE 5 MG TAB PO SCH (08:04)
[2022-03-31] MEDS: CLOPIDOGREL BISULFATE 75 MG TAB PO SCH (08:04)
[2022-03-31] MEDS: DOCUSATE SODIUM 100 MG CAP PO SCH ×2 (08:04→20:42)
[2022-03-31] MEDS: APIXABAN 5 MG TABLET PO SCH ×2 (08:05→20:42)
[2022-03-31] MEDS: METOPROLOL SUCC 25MG EXT REL TAB PO SCH (08:05)
[2022-03-31] MEDS: DULoxetine HCL 60 MG CAP PO SCH (08:05)
[2022-03-31] MEDS: PANTOprazole 40 MG TAB PO SCH ×2 (08:05→20:42)
[2022-03-31] MEDS: ADVANCED PROBIOTIC 1250 MG CAPSULE PO SCH (08:05)
[2022-03-31] MEDS: POLYETHYLENE (MIRALAX) 17 GM PACK PO SCH (08:07)
[2022-03-31] MEDS ORDERED: POTASSIUM CHLORIDE CRTAB 20 MEQ TABCR PO STA (09:12)
[2022-03-31] MEDS: MAGNESIUM SULFATE / D5W 1 GM/100 ML BAG IV SCH ×2 (10:26→12:14)
[2022-03-31] MEDS ORDERED: LACTULOSE SYRUP 20 GM/30 ML UDC PO PRN (14:24)
--- NOTE | 2022-03-31 14:27 | Hospitalist Progress Note ---
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 Of note, patient was [place] [facility] [place] 02[place]25[place]22 for back pain, LE pain and weakness with several episodes of falling. Hospital course was complicated by developing mottling of lower extremities, hypotension, hypoxemia, BRITTON and patient found to have bilateral PEs when ECHO showed RV dysfunction from massive PE. He underwent mechanical thrombectomy with IR and IVC filter placement. Patient was initially treated with heparin and transition to Eliquis on 02/21/2022. Patient had urinary retention while in hospital and had to have Rankin catheter placed on 02/21/2022. He was [facility] to [facility] and then discharged to home on 03/14/2021. Pt stated - since being home on 03/15/2021 had onset of dizziness with any movement of head and neck as well as with position change with associated nausea and vomiting.He is being managed for the following: (1) Dizziness: (2) Intractable nausea and vomiting: (3) CVA (cerebral vascular accident): Patient presents with dizziness, nausea, vomiting [see above] Admitting CTAP: No acute finding, 1.8 cm right renal lesion suggestive of RCC again noted. Admitting MRI brain: Few tiny subcentimeter foci of restricted diffusion within the centrum semiovale frontoparietal junctions compatible with acute to subacute watershed lacunar infarcts. Chronic lacunar infarcts of the cerebellum noted. 03/24 CTA head and neck: No significant stenosis/occlusion/dissection within the carotid or vertebral arteries. 03/24 echo: Ejection fraction 60 to 65%, normal LV wall thickness and systolic function. Right ventricle is normal in size and function. Neurology evaluated. Long-term SBP goal of less than 130, recommends ENT consult if dizziness persist. Continue with Plavix, Eliquis, statin. LDL 37 and A1c 5.4 this admission. His cerebellar lacunar infarct likely could be the reason for his nausea and v omiting vs other GI causes. GI evaled, appreciate recs. If with persistent N/V, pt will benefit from following up w/ GI as OP along with his neurology f/u. PT/OT, patient making progress, recommends rehab - cm working on it. Patient reports improving dizziness, recurrence of nausea and vomiting -- now getting better w/ use of prn nausea meds. Continue with nausea control as needed. Pt eating better. and small volume diet at a time as tolerated. (4) Urinary retention: #. CAUTI: Admitting UCx positive for Staph infeciton. History of BPH, urinary retention. Has current Rankin catheter in place. Rankin last changed 03/11/2022 per family To have outpatient urology follow-up with [facility] [place] urology nurse for Rankin removal on 04/07/2022 Status post antibiotic course. (5) Status post lumbar surgery: History lumbar degenerative disease, stenosis, multilevel listhesis, severe cauda equina nerve compression S/P L2-L5 decompression by Dr. Mcleod [place] 02/11/22 [place] [facility] [place] Received adequate physical therapy at [facility] Was sent home from [facility] on around 14th of this month Has neuropathy involving the lower extremities We will continue PT and OT and discharge as per the recommendation (6) Pulmonary embolus: Found to have bilateral PEs during [place] [facility] S/P mechanical thrombectomy with IR and IVC filter placement. On Eliquis #. Other chronic medical conditions: CAD status post stent, HTN, MARYCARMEN [not using BiPAP] --- resume home meds as able #. Possible renal cell carcinoma: Noted on admitting CTAP [see above], patient states he is scheduled to have outpatient follow-up imaging for renal lesion, patient to follow-up with urology/oncology as an outpatient. #. DVT prophylaxis: On Eliquis #. Full code #. Disposition: PT/OT OLIVIER ty to assist with DC planning. Pt will need rehab. stable medically for dc unless new issues arise. Admission and Anticipated Discharge Date Admission Date: March 23, 2022 Subjective Patient seen and examined at bedside as a follow-up of dizziness and intractable nausea and vomiting, CVA, history of urinary retention, status post recent lumbar surgery. Patient was sitting up in chair, reports having no nausea, vomiting since yesterday, pt has been using prn nausea meds now, fairly tolerating the meds, no issues. Pt on room air, not dizzy lately when standing up, denies any pain, reports last bm 5-6 days ago but is gassy now and has been taking miralax. No belly pain. Denies other review of symptoms. lactulose po 1 time dose again if not w/ bm. Physical Exam Physical Exam: GENERAL: Alert and oriented x3. NAD, on RA. Overweight. HEENT: No pallor, no icterus. Pupils equal, round and reactive to light. Oral mucosa moist. NECK: No JVD, no neck masses. HEART: S1 and S2 heard. Regular rate and rhythm. No murmur, no gallop. RESPIRATORY SYSTEM: Normal AP diameter. No accessory muscle use. No wheezing, no crackles. ABDOMEN: Soft, bowel sounds present, nontender, no distention. CENTRAL NERVOUS SYSTEM: No facial droop. Speech is clear. Obeys simple commands. Bilateral foot drop, chronic. EXTREMITIES: No edema, no erythema seen. Results & Data Results & Data ([facility]) Vital Signs (Past 12 Hours) Vital Signs Temp Pulse Pulse Resp BP Pulse Ox O2 Del Method 03/31/22 11:50 35.7 C L 88 16 115/72 97 Room Air 03/31/22 07:47 36.6 C 81 14 134/81 98 Room Air 03/31/22 07:12 83 03/31/22 03:21 36.6 C 80 18 131/76 98 Room Air
[2022-03-31] MEDS: ATORVASTATIN 40 MG TAB PO SCH (20:41)
[2022-04-01 07:32] LABS: BUN Creatinine Ratio 14.9 (10-20); Calcium 8.8 mg/dl (8.5-10.1); Creatinine Clr Calc Pharmacy 111.2 ml/min; Est GFR (African American) 105.9 ml/min; Est GFR (Non-African American) 91.4 ml/min; Magnesium 1.8 mg/dl (1.7-2.4); Potassium 4.1 mmol/L (3.5-5.1)
[2022-04-01] MEDS: FINASTERIDE 5 MG TAB PO SCH (08:07)
[2022-04-01] MEDS: CLOPIDOGREL BISULFATE 75 MG TAB PO SCH (08:07)
[2022-04-01] MEDS: ADVANCED PROBIOTIC 1250 MG CAPSULE PO SCH (08:07)
[2022-04-01] MEDS: DULoxetine HCL 60 MG CAP PO SCH (08:07)
[2022-04-01] MEDS: METOPROLOL SUCC 25MG EXT REL TAB PO SCH (08:07)
[2022-04-01] MEDS: APIXABAN 5 MG TABLET PO SCH ×2 (08:07→20:07)
[2022-04-01] MEDS: DOCUSATE SODIUM 100 MG CAP PO SCH ×2 (08:07→20:07)
[2022-04-01] MEDS: PANTOprazole 40 MG TAB PO SCH ×2 (08:07→20:07)
[2022-04-01] MEDS: POLYETHYLENE (MIRALAX) 17 GM PACK PO SCH (08:08)
[2022-04-01] MEDS: ONDANSETRON INJ 2 MG/ML 2 ML VIAL IV PRN (12:59)
[2022-04-01] MEDS ORDERED: oxyCODONE/ACETAMINOPHEN 5mg/325mg TAB PO PRN (13:20)
[2022-04-01] MEDS: PROMETHAZINE HCL 25 MG in SODIUM CHLORIDE 0.9% 50 ML IV PRN (14:06)
--- NOTE | 2022-04-01 14:57 | Hospitalist Progress Note ---
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 Of note, patient was again hospitalized at [facility] 02/15/22 to 02/25/2022 for back pain, LE pain and weakness with several episodes of falling. Hospital course was complicated by developing mottling of lower extremities, hypotension, hypoxemia, BRITTON and patient found to have bilateral PEs when ECHO showed RV dysfunction from massive PE. He underwent mechanical thrombectomy with IR and IVC filter placement. Patient was initially treated with heparin and transition to Eliquis on 02/21/2022. Patient had urinary retention while in hospital and had to have Rankin catheter placed on 02/21/2022. He [facility] to [facility] and then discharged to home on 03/14/2021. Pt stated - since being home on 03/15/2021 had onset of dizziness with any movement of head and neck as well as with position change with associated nausea and vomiting.He is being managed for the following: (1) Dizziness: (2) Intractable nausea and vomiting: (3) CVA (cerebral vascular accident): Patient presents with dizziness, nausea, vomiting [see above] Admitting CTAP: No acute finding, 1.8 cm right renal lesion suggestive of RCC again noted. Admitting MRI brain: Few tiny subcentimeter foci of restricted diffusion within the centrum semiovale frontoparietal junctions compatible with acute to subacute watershed lacunar infarcts. Chronic lacunar infarcts of the cerebellum noted. 03/24 CTA head and neck: No significant stenosis/occlusion/dissection within the carotid or vertebral arteries. 03/24 echo: Ejection fraction 60 to 65%, normal LV wall thickness and systolic function. Right ventricle is normal in size and function. Neurology evaluated. Long-term SBP goal of less than 130, recommends ENT consult if dizziness persist. Continue with Plavix, Eliquis, statin. LDL 37 and A1c 5.4 this admission. His cerebellar lacunar infarct likely could be the reason for his nausea and v omiting vs other GI causes. GI evaled, appreciate recs. If with persistent N/V, pt will benefit from following up w/ GI as OP along with his neurology f/u. PT/OT, patient making progress, recommends rehab - awaiting dc to [facility]. Patient reports improving dizziness, recurrence of nausea and vomiting -- now getting better w/ use of prn nausea meds. Pt's neurosurgeon at [place] recommended CT L spine and MRI L spine w/wo con; which has been ordered, await test results and re- d/w in house orthospine. Continue with nausea control as needed. Pt eating better. and small volume diet at a time as tolerated. (4) Urinary retention: #. CAUTI: Admitting UCx positive for Staph infeciton. History of BPH, urinary retention. Has current Rankin catheter in place. Rankin last changed 03/11/2022 per family To have outpatient urology follow-up with [facility] urology nurse for Rankin removal on 04/07/2022 Status post antibiotic course. (5) Status post lumbar surgery: History lumbar degenerative disease, stenosis, multilevel listhesis, severe cauda equina nerve compression S/P L2-L5 decompression by Dr. Mcleod on 02/11/22 at [facility] Received adequate physical therapy at [facility] Was sent home from [facility] on around 14th of this month Has neuropathy involving the lower extremities We will continue PT and OT and discharge as per the recommendation Per Neuro Sx at [place] rec, getting lower back imaging today. (6) Pulmonary embolus: Found to have bilateral PEs during hospitalization at [facility] in 01/2022. S/P mechanical thrombectomy with IR and IVC filter placement. On Eliquis #. Other chronic medical conditions: CAD status post stent, HTN, MARYCARMEN [not using BiPAP] --- resume home meds as able #. Possible renal cell carcinoma: Noted on admitting CTAP [see above], patient states he is scheduled to have outpatient follow-up imaging for renal lesion, patient to follow-up with urology/oncology as an outpatient. #. DVT prophylaxis: On Eliquis #. Full code #. Disposition: PT/OT OLIVIER ty to assist with DC planning. Pt will need rehab. stable medically for dc unless new issues arise. total of 110 minutes were spent during medications review/reviewing tests/ordering tests/d/w RN, d/w Ortho spine/ updating family/ reaching out to neurosurgeon at [facility] and examining pt and charting the daily progress note. Admission and Anticipated Discharge Date Admission Date: March 23, 2022 Subjective Patient seen and examined at bedside as a follow-up of dizziness and intractable nausea and vomiting, CVA, history of urinary retention, status post recent lumbar surgery. At AM bedside exam: Patient was lying in bed, by bedside, reports having no nausea, vomiting since last 3 days, pt has been using prn nausea meds now but has not required for the same duration, fairly tolerating the meds, no issues. Pt on room air, not dizzy lately when standing up, denies any pain, reports moving bowels ok. No belly pain. Denies other review of symptoms. Patient's at bedside was again updated about patient's status, answered all her questions, spent around 15-minute in discussion apart from bedside examination/discussion with the patient. Patient's brought up that she had spoke with Dr. Mcleod yesterday evening who has asked me to give him a call regarding recommendation for his history of recent lumbar spine surgery. She presented me with 3 numbers [[phone], or [phone], or [phone]] and she was directed that I call these numbers in this respective sequence as above before calling the last number. I called the first number, 10 minutes spent, could not connect with any neurosurgery on-call or Dr. Mcleod himself. Then hung up and called second number in the sequence, 10 minutes into with I got connected with neurosurgery on-call Dr. Madrigal who went through patient's chart and discussed the case with me and recommended CT lumbar spine, and MRI lumbar spine with and without contrast which was likely original recommendation from patient's own neurosurgeon at [place]. Spent around 25 minutes in this second phone conversation. Then discussed with our in the hospital orthospine and updated about my disc ussion with neurosurgeon at [place]. He opined that he will go through the images once they are done and will make any recommendation if needed at that point. Then communicated with RN about the updated plan of care regarding patient care and imaging. During the day, patient noted to have brief lightheadedness associated with nausea/vomiting/dizziness when being prepared for MRI L - spine, likely could be vasovagal event and a stand-alone event rather than his ongoing nausea/vomiting. Of note, his dizziness has improved in the last 1 week. Patient was evaluated at bedside again, he did not have any focal weakness or any confusion afterwards. Patient's was at bedside, inquired about his CT scan results, then we discussed about his CT scan result and discussed about his possible vasovagal syncope today. Answered her multiple questions, and another 20 minutes spent this time. Updated neurology as well regarding multiple events of his nausea/vomiting/dizziness/cerebellar infarct/history of vasovagal syncope/possible vasovagal syncope today. Neurology is going to evaluate him. Physical Exam Physical Exam: GENERAL: Alert and oriented x3. NAD, on RA. Overweight. HEENT: No pallor, no icterus. Pupils equal, round and reactive to light. Oral mucosa moist. NECK: No JVD, no neck masses. HEART: S1 and S2 heard. Regular rate and rhythm. No murmur, no gallop. RESPIRATORY SYSTEM: Normal AP diameter. No accessory muscle use. No wheezing, no crackles. ABDOMEN: Soft, bowel sounds present, nontender, no distention. CENTRAL NERVOUS SYSTEM: No facial droop. Speech is clear. Obeys simple commands. Bilateral foot drop, chronic. EXTREMITIES: No edema, no erythema seen. Results & Data Results & Data ([facility]) Vital Signs (Past 12 Hours) Vital Signs Temp Pulse Resp BP Pulse Ox O2 Del Method 04/01/22 12:45 98 H 20 128/80 99 Room Air 04/01/22 13:00 36.5 C 87 16 118/78 97 Room Air 04/01/22 11:41 36.6 C 85 19 116/70 96 Room Air 04/01/22 07:14 36.6 C 84 14 133/76 98 Room Air 04/01/22 04:07 36.6 C 90 18 115/67 98 Room Air
--- NOTE | 2022-04-01 15:19 | CT Scan Report ---
CT SCAN OF THE LUMBAR SPINE WITHOUT IV CONTRAST CLINICAL HISTORY: Low back pain. Recent spine surgery. COMPARISON STUDY: MRI of the lumbar spine dated 02/15/2022. Abdominal CT dated 03/23/2022. TECHNIQUE: CT scan of the lumbar spine is performed from the lower thoracic spine to sacrum. Images a re reviewed in the axial, sagittal, and coronal planes. IV contrast was not administered for this exa mination. A dose lowering technique was utilized adhering to the principles of ALARA. CT DOSE: 634.33 mGycm FINDINGS: The skeletal structures are osteopenic. There is no evidence of acute fracture or malalignm ent. Vertebral body height is maintained throughout the lumbar spine. There is 7 mm of anterolisthesi s at L4-L5. Alignment is otherwise preserved. There is postoperative change from laminectomy seen ext ending from L2 to L5. Anterior and lateral marginal osteophytes are seen throughout. The transverse p rocesses appear intact. There is no evidence of spondylolysis. No lytic or blastic lesion is seen. Th ere is moderate disc space narrowing at L4-L5 and L5-S1. Mild disc space narrowing is seen at the rem aining lumbar levels. There is multilevel vacuum phenomenon. Small posterior disc osteophyte complexe s are seen at all levels. Lateral disc bulges are seen bilaterally at L2-L3 and L3-L4, and there is a large right lateral disc bulge at L4-L5. These likely contribute to subarticular or neural foraminal stenosis and impinge on exiting nerve roots. Facet arthropathy is noted in the lower lumbar region. The visualized sacrum and bony pelvis appear intact. Edema seen posterior to the thecal sac at the op erative levels. There is a large postoperative fluid collection seen posteriorly at the operative lev els. This extends from the posterior aspect of the thecal sac newly to the dermal surface. This colle ction measures approximately 15 cm in craniocaudal length. The maximum AP dimension of this collectio n measures approximately 9 x 4.4 cm. There is moderate atherosclerotic calcification of the abdominal aorta which is normal in caliber. An IVC filter is partially visualized. There is a punctate nonobst ructing right renal calculus. No retroperitoneal lymphadenopathy is seen. IMPRESSION: 1. No acute bony abnormality is identified involving the lumbar spine. 2. Osteopenia with degenerative and extensive postsurgical change as above. 3. A large postoperative fluid collection is seen posterior to the thecal sac as detailed above. This likely represents a seroma. The sterility of this fluid cannot be assessed by imaging and clinical c orrelation will be essential. 4. The large fluid collection closely approximates the posterior aspect of the thecal sac. Mass effec t on the thecal sac would be impossible to exclude by CT. ACT 112: Negative or not required by law. Dictated: 04/01/2022 1:00 PM Transcribed: 04/01/2022 1:23 PM Flori [id number] SHANIA_Gabe [id number] Electronically signed by: Amauri Arias M.D. 04/01/2022 3:17 PM
[2022-04-01] MEDS: ATORVASTATIN 40 MG TAB PO SCH (20:07)
--- NOTE | 2022-04-01 22:54 | Neurology Progress Note ---
Date of Service April 01, 2022 Assessment & Plan (1) CVA (cerebral vascular accident): Plan Assessment and plan: 1. Cerebrovascular accident Impression: The patient has chronic cerebellar and acute/subacute cerebral small lacunar infarcts. Recommendations/plan: Please follow recommendations from initial neurology consultation report. 2. Dizziness Impression: The patient gets mostly dizzy, with sudden position change, and after standing up. He had recent near syncopal episode. He might have postural hypotension. Based on having significant peripheral polyneuropathy, he might have dysautonomia. Recent cerebrovascular accidents are unlikely to cause dizziness. Recommendations/plan: Good hydration. Gradual change of position. Syncope precautions. Rehabilitation as planned before. Fall precautions. Vestibular rehabilitation might be helpful as well. If symptoms persist, consider cardiac rhythm monitoring. 3. Unsteady gait Impression: The patient has severe peripheral polyneuropathy with bilateral foot drops as well as lumbosacral radiculopathies status post spinal surgery. Recommendations/plan: The patient should wear ankle and foot orthosis during ambulation. The patient should use walker during ambulation. Rehabilitation, physical therapy, Occupational Therapy. We will sign off. Please contact with neurology, as needed. Admission and Anticipated Discharge Date Admission Date: March 23, 2022 Subjective The patient is a 81-year-old gentleman, with many medical problems including severe peripheral polyneuropathy, lumbosacral radiculopathy, unsteady gait, who was initially consulted for dizziness, nausea and vomiting. Apparently, he was seen by Dr. Inman, and brain MRI studies showed small, lacunar infarcts of cer ebrum as well as chronic, cerebellar small ischemic lesions. Cerebrovascular accidents were not considered to be main cause of the patient's unsteady gait, dizziness, and nausea with vomiting. 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 The patient reports that he has been having dizziness and unsteady gait for at least 5 years. He was having an episode of vertigo in the past, and was diagnosed with benign paroxysmal positional vertigo, which was treated successfully with certain maneuvers in oral medications. He denies having any similar vertiginous symptoms since then. However, he has been having mostly position change induced dizziness which might induce nausea at times. Is waiting for transfer to rehab center. He has severe peripheral polyneuropathy with bilateral foot drops and has been followed by spine surgery. It is not clear to me at this time whether the patient has foot drops from lumbosacral radiculopathies or peripheral polyneuropathy. His ambulation and balance has been very poor because of peripheral polyneuropathy, foot drop, and lumbosacral radiculopathies. He is currently asymptomatic. Boring- Hallpike maneuver is negative. He does not have nystagmus. I have reviewed the patient's chart including imaging studies and initial neurology consultation report. I have visualized imaging studies personally. I have answered the patient's questions. Review of Systems Review of Systems: All systems reviewed & are unremarkable except as noted in Subjective Physical Exam Physical Exam: General Examination: Constitutional: Well developed person in no acute distress. HENT: Normal exam with inspection. CV: Hearth rhtyhm is regular. Neck: Supple, no carotid bruits. Lungs: Non-labored and comfortable breathing. Abdomen: Soft, non-tender, non-distended. Skin: No rash or ecchymosis. Extremities: No edema or cyanosis NEUROLOGICAL EXAMINATION: Mental Status: Alert and oriented to place, person and time. Cranial Nerves: II-XII are intact. No nystagmus. Funduscopy: Normal looking optic discs. Motor: 5/5 in upper extremities 4+/5 in proxymal lower extremities, ankle dorsiflexors 0/5, plantar flexors are 2-/5. Tone: Normal without spasticity or rigidity. Sensory: Decreased sensation in distal lower extremities to all sensory modalities up to the distal thighs. The patient also has decreased sensation in fingertips symmetrically. Coordination: No dysmetria with FTN testing. Speech: Fluent. Comprehension is intact. Gait: Not assessed. The patient reports able to walk with walker but he is very unsteady on his feet. He uses ankle and foot orthosis during ambulation. David-Hallpike maneuver: Negative. Results & Data ([facility]) Vital Signs (Past 12 Hours) Vital Signs Temp Pulse Pulse Resp BP Pulse Ox O2 Del Method 04/01/22 19:32 37.0 C 92 H 19 117/69 97 Room Air 04/01/22 16:47 80 04/01/22 16:05 36.5 C 83 18 131/77 96 Room Air 04/01/22 12:45 98 H 20 128/80 99 Room Air 04/01/22 13:00 36.5 C 87 16 118/78 97 Room Air 04/01/22 11:41 36.6 C 85 19 116/70 96 Room Air Laboratory Results Laboratory Results - last 24 hr 04/01/22 06:32 Sodium 135 L Potassium 4.1 Chloride 105 Carbon Dioxide 25 Anion Gap 5 BUN 10 Creatinine 0.67 Est Cr Clr Drug Dosing 111.2 Est GFR ( Amer) 105.9 Est GFR (Non-Af Amer) 91.4 BUN/Creatinine Ratio 14.9 Glucose 91 Calcium 8.8 Magnesium 1.8 Diagnostic Findings Abdomen/Pelvis CT 03/23/22 13:[address] WITH IV CONTRAST CT DOSE: 706.87 mGy.cm HISTORY: Acute abdominal pain with nausea and vomiting N/V, worsening this week TECHNIQUE: Multiaxial CT images of the abdomen and pelvis were performed following the IV administration of 91 cc of Optiray, A dose lowering technique was utilized adhering to the principles of ALARA. COMPARISON STUDY: March 18, 2022 FINDINGS: Coronary artery calcifications. Mild subsegmental bibasilar atelectasis versus scarring. No pneumatosis or pneumoperitoneum. Calcified granuloma of the basal left lower lobe. Unremarkable spleen, mildly trophic pancreas and adrenal glands. The gallbladder is within normal limits. Unchanged appearance of the liver. Indeterminate ill-defined 1.4 cm hypodense lesion of the right hepatic lobe on image 16 series 2 with hepatic dome cysts. Patency of the hepatic and portal veins. There are a few cysts of the bilateral kidneys redemonstrated along with several punctate nonobstructing bilateral renal calculi. There is an enhancing 1.8 cm mass the interpolar aspect of the right kidney laterally. No ureteral calculi or hydronephrosis. Decompressed or bladder with wall thickening and Rankin catheter in place. Air is also noted within the urinary bladder lumen. Prostamegaly. Mild perivesicular stranding. Atherosclerosis of the aorta. Infrarenal IVC filter. No lymphadenopathy identified. Tiny hiatal hernia. No bowel obstruction or bowel wall thickening. Colonic diverticulosis. The appendix is not well visualized. No secondary signs of acute appendicitis. Laminectomy changes of the lumbar spine redemonstrated at L2-L5. Fluid collection within the operative bed. Similar to the prior study measuring up to 14.5 cm in craniocaudal dimension. Unchanged grade 1 anterolisthesis L4 on L5 with chronic pars defects. IMPRESSION: 1. Stable exam compared to the 03/18/2022 study. 2. Rankin catheter within a decompressed or bladder again noted. Prostamegaly with urinary bladder wall thickening is again suggestive of chronic bladder outlet obstruction. Correlate with urinalysis to exclude cystitis. 3. No bowel obstruction or bowel wall thickening. 4. 1.8 cm right renal lesion suggestive of renal cell carcinoma again noted. 5. Nonobstructing bilateral nephrolithiasis. ACT 112: Negative or not required by law. The above report was generated using voice recognition software. It may contain grammatical, syntax or spelling errors. Electronically signed by: Jameson Stratton M.D. 03/23/2022 2:38 PM Brain MRI 03/23/22 15:18 MR brain wo con HISTORY: 81 years-old Male eval for post circ stroke acute strokelike symptoms COMPARISON: Head CT March 18, 2022 TECHNIQUE: Multiplanar multisequence MRI of the brain was obtained without the use of IV contrast. FINDINGS: There are 3 total subcentimeter foci of restricted diffusion noted within the centrum semiovale of the frontoparietal lobes as seen on images 20 and 21 of series 4. No acute or subacute territorial infarct. Midline structures appear unremarkable. Degenerative changes of the cervical spine. No acute intracranial hemorrhage, midline shift, abnormal extra-axial collection, cephalization intracranial mass. Involutional changes with ventriculomegaly, likely on an ex vacuo basis. Moderate T2/FLAIR hyperintense foci throughout the white matter. Chronic lacunar infarcts of the cerebellum. Cerebral venous sinuses and major arterial flow voids appear patent. The skull and soft tissues unremarkable. Prior bilateral lens repair. Mild mucosal thickening of the paranasal sinuses. The mastoid air cells are clear. IMPRESSION: 1. There are a few tiny subcentimeter foci of restricted diffusion within the centrum semiovale frontoparietal junctions. Findings are compatible with acute to subacute watershed lacunar infarcts. 2. No territorial infarct. 3. Chronic lacunar infarcts of the cerebellum. 4. Involutional changes with chronic microvascular ischemic disease. ACT 112: Negative or not required by law. The above report was generated using voice recognition software. It may contain grammatical, syntax or spelling errors. Electronically signed by: Jameson Stratton M.D. 03/23/2022 5:55 PM Head CTA 03/24/22 09:07 CT angio head w con CLINICAL HISTORY: 81 years-old Male with Stroke. Acute strokelike symptoms with nausea and vomiting COMPARISON STUDY: Brain MRI March 23, 2022 TECHNIQUE: Following the IV administration of 111 cc of Optiray, CT angiogram of the brain was performed from the skull base to the vertex. Images are reviewed in the axial, sagittal, and coronal planes. 3-D MIPS images are created and assessed. IV contrast was administered without complication. All measurements were obtained according to NASCET criteria. A dose lowering technique was utilized adhering to the principles of ALARA. CT DOSE: 699.16 mGy.cm FINDINGS: CT ANGIOGRAM OF THE BRAIN: The imaged bilateral internal carotid arteries are patent. The bilateral anterior and middle cerebral arteries are also patent. The vertebrobasilar system and posterior cerebral arteries are widely patent. origin of the right posterior cerebral artery. There is no aneurysm, high-grade stenosis, or proximal branch occlusion identified. Dural sinuses appear patent. Involutional changes with chronic microvascular ischemic disease. Prior bilateral lens repair. The previously noted tiny infarcts in the centrum semiovale not identified by CT. IMPRESSION: 1. Unremarkable CTA of the head. 2. The previously noted tiny infarcts within the centrum semiovale are not identified by CT. ACT 112: Negative or not required by law. The above report was generated using voice recognition software. It may contain grammatical, syntax or spelling errors. Electronically signed by: Jameson Stratton M.D. 03/24/2022 12:45 PM Neck CTA 03/24/22 09:07 NECK CTA HISTORY: Nausea. Vomiting. Dizziness. stroke TECHNIQUE: Multiaxial CT images of the neck were performed following the intravenous administration of contrast to evaluate the major cervical vessels. Maximum intensity projection images were also obtained. All measurements were calculated based on NASCET criteria. A dose lowering technique was utilized adhering to the principles of ALARA. COMPARISON STUDY: None. FINDINGS: The aortic arch and proximal great vessels are widely patent. There is no significant stenosis, occlusion, or dissection identified within the bilateral common carotid, internal carotid, or vertebral arteries. The visualized ascending thoracic aorta measures up to 4.1 cm in diameter. Mild calcified plaque within the bilateral carotid bifurcations, right greater than left. IMPRESSION: 1. No significant stenosis, occlusion, or dissection identified within the carotid or vertebral arteries. 2. The visualized ascending thoracic aorta measures up to 4.1 cm in diameter. ACT 112: Negative or not required by law. Electronically signed by: Thee Tyler M.D. 03/24/2022 1:13 PM Lumbar Spine X-Ray 03/30/22 13:53 XR lumbar spine 2-3V CLINICAL HISTORY: lumbar bulge ? increasing; recent Sx. COMPARISON STUDY: CT of the abdomen and pelvis March 23, 2012. Lumbar spine MRI February 15, 2022. FINDINGS: IVC filter is incidentally noted. There is mild leftward curvature of the lumbar spine. Mild anterolisthesis of L4 and L5 is due to bilateral L4 pars defects. No lumbar spine fracture is noted. There is severe disc space narrowing at L4-L5 and moderate to space narrowing at L5-S1. Status post L2-L5 laminec kumar. Severe facet arthrosis. IMPRESSION: 1. No acute lumbar spine fracture. 2. Status post L2-L5 laminectomy. 3. Severe multilevel degenerative changes within the lumbar spine. ACT 112: Negative or not required by law. Electronically signed by: Jacinto Quintero M.D. 03/30/2022 2:[address] 04/01/22 11:01 CT SCAN OF THE LUMBAR SPINE WITHOUT IV CONTRAST CLINICAL HISTORY: Low back pain. Recent spine surgery. COMPARISON STUDY: MRI of the lumbar spine dated 02/15/2022. Abdominal CT dated 03/23/2022. TECHNIQUE: CT scan of the lumbar spine is performed from the lower thoracic spine to sacrum. Images are reviewed in the axial, sagittal, and coronal planes. IV contrast was not administered for this examination. A dose lowering technique was utilized adhering to the principles of ALARA. CT DOSE: 634.33 mGycm FINDINGS: The skeletal structures are osteopenic. There is no evidence of acute fracture or malalignment. Vertebral body height is maintained throughout the lumbar spine. There is 7 mm of anterolisthesis at L4-L5. Alignment is otherwise preserved. There is postoperative change from laminectomy seen extending from L2 to L5. Anterior and lateral marginal osteophytes are seen throughout. The transverse processes appear intact. There is no evidence of spondylolysis. No lytic or blastic lesion is seen. There is moderate disc space narrowing at L4-L5 and L5-S1. Mild disc space narrowing is seen at the remaining lumbar levels. There is multilevel vacuum phenomenon. Small posterior disc osteophyte complexes are seen at all levels. Lateral disc bulges are seen bilaterally at L2-L3 and L3-L4, and there is a large right lateral disc bulge at L4-L5. These likely contribute to subarticular or neural foraminal stenosis and impinge on exiting nerve roots. Facet arthropathy is noted in the lower lumbar region. The visualized sacrum and bony pelvis appear intact. Edema seen posterior to the thecal sac at the operative levels. There is a large postoperative fluid collection seen posteriorly at the operative levels. This extends from the posterior aspect of the thecal sac newly to the dermal surface. This collection measures approximately 15 cm in craniocaudal length. The maximum AP dimension of this collection measures approximately 9 x 4.4 cm. There is moderate atherosclerotic calcification of the abdominal aorta which is normal in caliber. An IVC filter is partially visualized. There is a punctate nonobstructing right renal calculus. No retroperitoneal lymphadenopathy is seen. IMPRESSION: 1. No acute bony abnormality is identified involving the lumbar spine. 2. Osteopenia with degenerative and extensive postsurgical change as above. 3. A large postoperative fluid collection is seen posterior to the thecal sac as detailed above. This likely represents a seroma. The sterility of this fluid cannot be assessed by imaging and clinical correlation will be essential. 4. The large fluid collection closely approximates the posterior aspect of the thecal sac. Mass effect on the thecal sac would be impossible to exclude by CT. ACT 112: Negative or not required by law. Dictated: 04/01/2022 1:00 PM Transcribed: 04/01/2022 1:23 PM Flori [id number] SHANIA_Gabe [id number] Electronically signed by: Amauri Arias M.D. 04/01/2022 3:17 PM
[2022-04-02] MEDS ORDERED: oxyCODONE/ACETAMINOPHEN 5mg/325mg TAB PO PRN (00:12)
[2022-04-02] MEDS ORDERED: GADOBUTROL 65ML VIAL IV ONE (01:32)
[2022-04-02] MEDS: ONDANSETRON INJ 2 MG/ML 2 ML VIAL IV PRN (01:59)
[2022-04-02 07:55] LABS: BUN Creatinine Ratio 12.3 (10-20); Calcium 8.8 mg/dl (8.5-10.1); Creatinine Clr Calc Pharmacy 83.6 ml/min; Est GFR (Non-African American) 84.5 ml/min; Magnesium 1.7 mg/dl (1.7-2.4); Potassium 3.7 mmol/L (3.5-5.1)
[2022-04-02] MEDS: DULoxetine HCL 60 MG CAP PO SCH (08:35)
[2022-04-02] MEDS: APIXABAN 5 MG TABLET PO SCH ×2 (08:35→20:36)
[2022-04-02] MEDS: PANTOprazole 40 MG TAB PO SCH ×2 (08:35→20:36)
[2022-04-02] MEDS: DOCUSATE SODIUM 100 MG CAP PO SCH ×2 (08:35→20:35)
[2022-04-02] MEDS: ADVANCED PROBIOTIC 1250 MG CAPSULE PO SCH (08:35)
[2022-04-02] MEDS: FINASTERIDE 5 MG TAB PO SCH (08:35)
[2022-04-02] MEDS: CLOPIDOGREL BISULFATE 75 MG TAB PO SCH (08:35)
[2022-04-02] MEDS: POLYETHYLENE (MIRALAX) 17 GM PACK PO SCH (08:36)
[2022-04-02] MEDS: METOPROLOL SUCC 25MG EXT REL TAB PO SCH (08:36)
--- NOTE | 2022-04-02 12:06 | Orthopedic Consultation ---
Date of Consultation April 02, 2022 Assessment & Plan (1) Status post lumbar surgery: MRI imaging is available for review demonstrates lumbar decompression multilevel nature. There is a significant fluid collection that does extend beyond the fascial layer to the subcutaneous tissues. It does have a suspicion for possible CSF there is no pressure on the dural sac. There is no evidence of any residual central stenosis. Plan at this time he is scheduled for rehab in the near future. He is to follow-up with his treating surgeon at [facility] for possible reexploration of lumbar spine and repair of CSF leak. Clear this is high risk in nature as he is on anticoagulants secondary to his stroke and pu lmonary emboli. History of Present Illness Reason for Consultation: Status post lumbar decompression with postop complications Attending Physician: Casandra Matthew MD History of Present Illness This is a very pleasant 81-year-old male that is status post multilevel lumbar decompression and fusion in January 2022. Unfortunately difficult postoperative course struggling with pulmonary embolism and possible stroke. He is here today for continued medical management and issues. He is more comfortable at this time. He does have known bilateral foot drop and dense peripheral neuropathy this is established prior to the surgery. He stated that initially after surgery he was up and moving around quite well but then had significant postop medical issues that have curtailed his improvement. He does describe occasional headaches with sitting up but they seem to get better with prolonged sitting and ambulation.. He denies any leg pain at this time. Allergies Allergy/AdvReac Type Severity Reaction Status Date / Time Sulfa (Sulfonamide Allergy Intermediate rash Verified 03/23/22 16:15 Antibiotics) Home Medications Medication Instructions Recorded Confirmed Type amoxicillin 500 mg capsule 2,000 mg PO DIRECTED PRN DENTAL 11/20/18 03/23/22 History APPOINTMENTS duloxetine 60 mg capsule,delayed 60 mg PO QAM 11/20/18 03/23/22 History release metoprolol succinate 25 mg 25 mg PO QAM #90 tabs 11/20/18 03/23/22 History tablet,extended release 24 hr nitroglycerin 0.4 mg sublingual 0.4 mg sublingual Q5M PRN chest 11/20/18 03/23/22 History tablet pain #25 tabs multivitamin (Daily Multi-Vitamin 1 tab PO QAM 01/03/19 03/23/22 History tablet) pantoprazole 40 mg tablet,delayed 40 mg PO QAM 05/18/20 03/23/22 History release finasteride 5 mg tablet 5 mg PO QAM 09/05/21 03/23/22 History acetaminophen 500 mg tablet 500 mg PO AMHS 11/15/21 03/23/22 History (Tylenol Extra Strength) clopidogrel 75 mg tablet 75 mg PO QAM 02/15/22 03/23/22 History tizanidine 4 mg tablet 4 mg PO DIRECTED PRN MUSCLE 02/15/22 03/23/22 History SPASMS apixaban 5 mg tablet (Eliquis) 5 mg PO BID 03/18/22 03/23/22 History diclofenac sodium 1 % topical gel 2 g topical QID 03/18/22 03/23/22 History lisinopril 5 mg tablet 5 mg PO QAM 03/18/22 03/23/22 History melatonin 3 mg tablet 3 mg PO HS 03/18/22 03/23/22 History ondansetron 4 mg disintegrating 4 mg PO Q8H PRN nausea and 03/18/22 03/23/22 Rx tablet vomiting #30 tabs scopolamine base 1 mg over 3 days 1 patch transdermal Q3D PRN 03/18/22 03/23/22 History transdermal patch NEEDED atorvastatin 40 mg tablet 40 mg PO HS 03/23/22 03/23/22 History Patient History Medical History Anemia Aortic regurgitation CAD (coronary artery disease) Dilated aortic root Diverticulosis GERD (gastroesophageal reflux disease) History of myocardial infarction 01/2011 - follows w/ Dr. Macdonald History of nephritis as a child Hyperlipidemia Hypertension Idiopathic peripheral neuropathy Irregular heart beat Obesity Obstructive sleep apnea CPAP MARYCARMEN (obstructive sleep apnea) Osteoarthritis Overactive bladder Peripheral neuropathy Pulmonary embolus Seizure-like activity 35 years ago - 2 convulsive episodes following outpatient surgery (excision pilonidal cyst) -- says he followed with neurologist x 6 months; seizure work up was neg -- no issues since Spinal stenosis cervical and lumbar Surgical History History of anesthesia reaction 35 years ago - 2 convulsive episodes following outpatient surgery (excision pilonidal cyst) -- says he followed with neurologist x 6 months; seizure work up was neg -- no issues since History of arthroscopy of both knees History of cardiac cath 2010 - [facility] - stents x 2 History of colonoscopy History of excision of mass Rt axillary - benign History of heart artery stent x 2 History of surgical removal of pilonidal cyst History of thumb surgery Rt Hx of laminectomy S/p bilateral carpal tunnel release S/P left rotator cuff repair S/P tonsillectomy S/P total knee arthroplasty BL Family History Father Gastric cancer PONV (postoperative nausea and vomiting) Mother Lymphoma Colon cancer Brother Prostate cancer PONV (postoperative nausea and vomiting) Social History Smoking Status: Former smoker Tobacco Type: Cigars Second Hand Exposure: No; Hx Alcohol Use: Yes Alcohol type: beer Hx Substance Use: No Preferred Language: Latvian Communication Ability: Effective Acquisitions Librarian Required: No Beliefs That Will Affect Care: None marital status: Current Living Situation: Spouse current occupational status: retired Feels Safe at Home: Yes Assistive Devices: Special Shoe and Walker Physical Exam Physical Exam: On exam the patient does appear quite comfortable. He is alert and oriented. His is at the bedside. He is cooperative with exam. He does have significant dense numbness and weakness to bilateral plantarflexion dorsiflexion. He does have a well-healed lumbar incision there is a pocket of fluid that palpable but nontender. Results & Data ([facility]) Vital Signs (Past 12 Hours) Vital Signs Temp Pulse Pulse Resp BP Pulse Ox O2 Del Method 04/02/22 11:57 36.9 C 85 18 137/82 97 Room Air 04/02/22 07:28 36.9 C 96 H 18 135/82 96 Room Air 04/02/22 03:17 36.8 C 91 H 18 151/82 H 99 Room Air 04/02/22 00:20 94 H
--- NOTE | 2022-04-02 14:08 | Magnetic Resonance Report ---
MR lumbar spine wo/w con CLINICAL HISTORY: 81 years-old Male with [facility]; recent L sp sx. Chronic low back pain in a patient with history of prior surgery. COMPARISON: CT lumbar spine 04/01/2022, MRI lumbar spine 02/15/2022. TECHNIQUE: Multiplanar, multi sequence MRI of the lumbar spine was performed both with and without th e use of Gadavist. FINDINGS: Study is degraded by motion artifact and also limited secondary to patient body habitus. 16 degrees l evoscoliosis measured from L1-L5. Postoperative changes of L2-S1 laminectomy redemonstrated. Peripherally enhancing fluid collection wi thin the operative bed is redemonstrated which now measures 5.6 x 6.7 x 13.7 cm and extends into the posterior epidural space abutting the thecal sac posteriorly and along the right lateral aspect at th e level of L3-L4. No high-grade central canal stenosis from the aforementioned fluid collection. This was more multilocular and smaller in size on the 02/15/2022 study. Difference in measurement is diff icult secondary to motion degradation on the prior study. Thickening and enhancement of the posterior epidural tissues is noted in conjunction with thickening and clumping of the cauda equina nerve root s, also with mild enhancement. Additional enhancement of the paraspinal musculature near the operative bed. No acute fracture, sublu xation, endplate erosion or marrow replacing process identified. There is unchanged 7 mm anterolisthe sis L4 on L5 which is likely on a degenerative basis. T12-L1: Small posterior annular disc bulge with ligamentum flavum thickening and moderate facet arth rosis. The central canal is patent. Moderate bilateral foraminal narrowing is unchanged. L1-L2: Ligamentum flavum thickening with moderate facet arthrosis. The central canal is patent. Unch anged mild to moderate bilateral foraminal stenosis. L2-L3: Moderate disc space narrowing with spondylitic spurring, small circumferential annular disc b ulge with moderate facet arthrosis. Flattening of the ventral thecal sac without significant central canal stenosis. Severe right with moderate to severe left foraminal narrowing is unchanged. L3-L4: Mild intervertebral disc space narrowing with spondylitic spurring, circumferential annular d isc bulge with ligamentum flavum thickening and severe facet arthrosis. Flattening of the ventral the layne sac without significant central canal stenosis. Moderate to severe bilateral foraminal narrowing is unchanged. L4-L5: Moderate to severe intervertebral disc space narrowing with Grade 1 anterolisthesis. Spondylo tic spurring with circumferential annular disc bulge and posterior disc space uncovering. Severe face t arthrosis. Mild central canal stenosis, AP dimension of the thecal sac measuring 9 mm. Severe right with moderate left foraminal narrowing is unchanged. L5-S1: Mild intervertebral disc space narrowing with spondylitic spurring, circumferential annular d isc bulge with moderate facet arthrosis. Moderate narrowing of the lateral recesses. Mild central can al stenosis, AP dimension of the thecal sac measuring 9 mm. Moderate right with moderate to severe le ft foraminal stenosis. IMPRESSION: 1. Postoperative changes of L2-S1 laminectomy redemonstrated. There is increased size of the postoper ative fluid collection within the operative bed extending into the posterior epidural tissues. There is peripheral enhancement with enhancement of the adjacent tissues. This may represent a seroma howev er should be correlated clinically to exclude superimposed infection. 2. Mild mass effect upon the posterior aspect of the thecal sac without high-grade central canal sten osis. 3. Thickening and clumping of the cauda equina nerve roots demonstrating mild enhancement. Findings a re suggestive of a nonspecific arachnoiditis/neuritis. 4. Multilevel neural foraminal narrowing as above is unchanged from the prior study. 5. No acute fracture or significant marrow edema. ACT 112: Negative or not required by law. The above report was generated using voice recognition software. It may contain grammatical, syntax o r spelling errors. Dictated: 04/02/2022 1:30 PM Transcribed: 04/02/2022 1:53 PM Lolly [id number] [email or web address] Electronically signed by: Jameson Stratton M.D. 04/02/2022 2:07 PM
--- NOTE | 2022-04-02 20:35 | Hospitalist Progress Note ---
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 Of note, patient was [place] [facility] [place] 02/25/2022 for back pain, LE pain and weakness with several episodes of falling. Hospital course was complicated by developing mottling of lower extremities, hypotension, hypoxemia, BRITTON and patient found to have bilateral PEs when ECHO showed RV dysfunction from massive PE. He underwent mechanical thrombectomy with IR and IVC filter placement. Patient was initially treated with heparin and transition to Eliquis on 02/21/2022. Patient had urinary retention while in hospital and had to have Rankin catheter placed on 02/21/2022. [facility] and then discharged to home on 03/14/2021. Pt stated - since being home on 03/15/2021 had onset of dizziness with any movement of head and neck as well as with position change with associated nausea and vomiting. Dizziness: Intractable nausea and vomiting: CVA (cerebral vascular accident): Patient presents with dizziness, nausea, vomiting [see above] Admitting CTAP: No acute finding, 1.8 cm right renal lesion suggestive of RCC again noted. Admitting MRI brain: Few tiny subcentimeter foci of restricted diffusion within the centrum semiovale frontoparietal junctions compatible with acute to subacute watershed lacunar infarcts. Chronic lacunar infarcts of the cerebellum noted. 03/24 CTA head and neck: No significant stenosis/occlusion/dissection within the carotid or vertebral arteries. 03/24 echo: Ejection fraction 60 to 65%, normal LV wall thickness and systolic function. Right ventricle is normal in size and function. Neurology evaluated. Long-term SBP goal of less than 130, recommends ENT consult if dizziness persist. Continue with Plavix, Eliquis, statin. LDL 37 and A1c 5.4 this admission. GI evaluated, appreciate recs. If with persistent N/V, pt will benefit from following up w/ GI as OP along with his neurology f/u. Post op Fluid collection -Concern that this may be contributing to patient's ongoing nausea/vomiting/dizziness -Again seen on repeat CT Lumbar spine 04/01 and MR L spine 04/02. Fluid collection enlarged -Case was discussed with patient's neurosurgeon and he has been accepted for transfer [place] [facility] [place]. Awaiting bed Urinary retention: Catheter associated UTI: Rankin was present on admission Urine Culture positive for Staph infection History of BPH, urinary retention. Has current Rankin catheter in place. Rankin last changed 03/11/2022 per family To have outpatient urology follow[place] [facility] [place] for Rankin removal on 04/07/2022. Since he will going back to [facility], would recommend follow up there and void trial if appropriate Status post antibiotic course. History of Pulmonary embolus: Found to have bilateral PEs during hospitalization at [facility] [place]. S/P mechanical thrombectomy with IR and IVC filter placement. continue Eliquis Other chronic medical conditions: CAD status post stent, HTN, MARYCARMEN [not using BiPAP] --- resume home meds as able Possible renal cell carcinoma: Noted on admitting CTAP [see above], patient states he is scheduled to have outpatient follow-up imaging for renal lesion, patient to follow-up with urology/oncology as an outpatient. DVT prophylaxis: On Eliquis Full code Pending transfer to [facility] Admission and Anticipated Discharge Date Admission Date: March 23, 2022 Subjective Patient was seen today at 8am and again later in the day when Mrs Gomez was visiting. She expressed her concern about Gonzales's decline over the past 2 months and his ongoing nausea. I reviewed the results of yesterday's CT Lumbar spine compared to his 02/15/2022 MRI lumbar spine with her (at the time of my visit, yesterday's MRI Lumbar spine report was still pending). Based on the two reports, it appears Tommie's fluid collection at the site of his prior surgery has enlarged. Earlier in the morning and prior to meeting with Mrs Gomez, I had reviewed the results of these two studies (MRI L spine 02/15/[address] L spine 04/01/2022) with Mr Gomez's neurosurgeon, Dr Mcleod, at [facility] and we agreed he should be transferred there for further evaluation. I relayed this information to Mrs Gomez and she was in agreement with transfer. Today he was feels tired and has a headache but did not have any vomiting per nursing staff. Remains afebrile Physical Exam Physical Exam: Appears fatigued, no acute distress, non toxic ENMT: normocephalic, atraumatic Respiratory: Breathing comfortably on room air, no wheezing/rhonchi Cardiovascular: regular rate and rhythm Gastrointestinal (Abdomen): soft, non tender Musculoskeletal: No edema Skin: Lower back with notable fluid collection, no surrounding erythema Neurologic: drowsy but arousable, spontaneously moving extremities, at times forgetful but answering questions appropriately otherwise Results & Data Results & Data ([facility]) Vital Signs (Past 12 Hours) Vital Signs Temp Pulse Pulse Resp BP Pulse Ox O2 Del Method 04/02/22 14:00 87 04/02/22 15:42 36.9 C 86 22 124/64 94 Room Air 04/02/22 11:57 36.9 C 85 18 137/82 97 Room Air
[2022-04-02] MEDS: ATORVASTATIN 40 MG TAB PO SCH (20:36)
[2022-04-03 06:10] LABS: Basophils # (auto) 0.03 K/uL (0-0.2); Basophils % (auto) 0.6 %; Eosinophils # (auto) 0.32 K/uL (0-0.50); Eosinophils % (auto) 6.2 %; Hematocrit (blood only) 32.9 % (42.0-52.0); Hemoglobin 11.1 g/dl (14.0-18.0); Immature Granulocytes # (auto) 0.04 K/uL (0.01-0.20); Immature Granulocytes % (auto) 0.8 %; Lymphocytes # (auto) 2.05 K/uL (1.2-3.4); Lymphocytes % (auto) 39.4 %; Mean Corpuscular Hemoglobin 29.6 pg (25.0-34.0); Mean Corpuscular Hgb Conc 33.7 g/dL (32.0-36.0); Mean Corpuscular Volume 87.7 fL (80.0-100.0); Mean Platelet Volume 9.7 fL (9.4-12.4); Monocytes # (auto) 0.47 K/uL (0.11-0.59); Neutrophils # (auto) 2.29 K/uL (1.40-6.50); Platelet Count 208 K/uL (130-400); RDW Coefficient of Variation 14.4 % (11.5-14.5); RDW Standard Deviation 45.8 fL (36.4-46.3); Red Blood Count 3.75 M/uL (4.70-6.10)
[2022-04-03 06:24] LABS: Calcium 8.9 mg/dl (8.5-10.1); Creatinine Clr Calc Pharmacy 84.6 ml/min; Est GFR (African American) 98.5 ml/min; Magnesium 1.7 mg/dl (1.7-2.4); Phosphorus 3.8 mg/dl (2.5-4.9); Potassium 3.7 mmol/L (3.5-5.1)
[2022-04-03] MEDS: APIXABAN 5 MG TABLET PO SCH ×2 (08:29→20:03)
[2022-04-03] MEDS: DULoxetine HCL 60 MG CAP PO SCH (08:29)
[2022-04-03] MEDS: ADVANCED PROBIOTIC 1250 MG CAPSULE PO SCH (08:29)
[2022-04-03] MEDS: CLOPIDOGREL BISULFATE 75 MG TAB PO SCH (08:29)
[2022-04-03] MEDS: DOCUSATE SODIUM 100 MG CAP PO SCH ×2 (08:29→20:03)
[2022-04-03] MEDS: FINASTERIDE 5 MG TAB PO SCH (08:29)
[2022-04-03] MEDS: PANTOprazole 40 MG TAB PO SCH ×2 (08:30→20:03)
[2022-04-03] MEDS: METOPROLOL SUCC 25MG EXT REL TAB PO SCH (08:30)
[2022-04-03] MEDS: POLYETHYLENE (MIRALAX) 17 GM PACK PO SCH (08:30)
[2022-04-03] MEDS: ATORVASTATIN 40 MG TAB PO SCH (20:03)
--- NOTE | 2022-04-04 08:36 | Hospitalist Progress Note ---
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 Of note, patient was hospitalized at [facility] 02/15/22 to 02/25/2022 for back pain, LE pain and weakness with several episodes of falling. Hospital course was complicated by developing mottling of lower extremities, hypotension, hypoxemia, BRITTON and patient found to have bilateral PEs when ECHO showed RV dysfunction from massive PE. He underwent mechanical thrombectomy with IR and IVC filter placement. Patient was initially treated with heparin and transition to Eliquis on 02/21/2022. Patient had urinary retention while in hospital and had to have Rankin catheter placed on 02/21/2022. [facility] and then discharged to home on 03/14/2021. Pt stated - since being home on 03/15/2021 had onset of dizziness with any movement of head and neck as well as with position change with associated nausea and vomiting. Dizziness: Intractable nausea and vomiting: CVA (cerebral vascular accident): Patient presents with dizziness, nausea, vomiting [see above] Admitting CTAP: No acute finding, 1.8 cm right renal lesion suggestive of RCC again noted. Admitting MRI brain: Few tiny subcentimeter foci of restricted diffusion within the centrum semiovale frontoparietal junctions compatible with acute to subacute watershed lacunar infarcts. Chronic lacunar infarcts of the cerebellum noted. 03/24 CTA head and neck: No significant stenosis/occlusion/dissection within the carotid or vertebral arteries. 03/24 echo: Ejection fraction 60 to 65%, normal LV wall thickness and systolic function. Right ventricle is normal in size and function. Neurology evaluated. Long-term SBP goal of less than 130, recommends ENT consult if dizziness persist. Continue with Plavix, Eliquis, statin. LDL 37 and A1c 5.4 this admission. GI evaluated, appreciate recs. If with persistent N/V, pt will benefit from following up w/ GI as OP along with his neurology f/u. Post op Fluid collection -Concern that this may be contributing to patient's ongoing nausea/vomiting/dizziness -Again seen on repeat CT Lumbar spine 04/01 and MR L spine 04/02. Fluid collection enlarged -Case was discussed with patient's neurosurgeon 04/02 and he has been accepted for transfer to [facility] for further evaluation. Urinary retention: Catheter associated UTI: Rankin was present on admission Urine Culture positive for Staph infection History of BPH, urinary retention. Has current Rankin catheter in place. Rankin last changed 03/11/2022 per family To have outpatient urology follow-up with [facility] urology nurse for Rankin removal on 04/07/2022. Since he will going back to [facility], would recommend follow up there and void trial if appropriate Status post antibiotic course. History of Pulmonary embolus: Found to have bilateral PEs during hospitalization at [facility] in 01/2022. S/P mechanical thrombectomy with IR and IVC filter placement. On Eliquis Other chronic medical conditions: CAD status post stent, HTN, MARYCARMEN [not using BiPAP] --- resume home meds as able Possible renal cell carcinoma: Noted on admitting CTAP [see above], patient states he is scheduled to have outpatient follow-up imaging for renal lesion, patient to follow-up with urology/oncology as an outpatient. DVT prophylaxis: On Eliquis Full code Pending transfer to [facility]. He is scheduled for OR 04/05 for post op fluid evacuation. He did receive Eliquis and Plavix today, will hold further doses. NPO after midnight. Admission and Anticipated Discharge Date Admission Date: March 23, 2022 Subjective Transfer to [facility] was delayed Patient today feels well. Remains afebrile. No nausea/vomiting Physical Exam Physical Exam: sitting in bed comfortably, no acute distress, non toxic Respiratory: Breathing comfortably on room air, no wheezing/rhonchi/rales Cardiovascular: Regular rate and rhythm, no murmurs/rubs/gallops Gastrointestinal (Abdomen): Soft, non tender Musculoskeletal: No edema, no cyanosis Genitourinary: Rankin catheter in and draining yellow urine Results & Data Results & Data ([facility]) Vital Signs (Past 12 Hours) Vital Signs Temp Pulse Pulse Resp BP BP Pulse Ox 04/04/22 08:18 36.8 C 87 20 116/68 96 04/04/22 03:35 36.4 C L 80 20 126/81 98 04/03/22 22:10 81 04/03/22 23:15 36.8 C 81 18 119/76 95 O2 Del Method 04/04/22 08:18 Room Air 04/04/22 03:35 Room Air 04/03/22 22:10 04/03/22 23:15 Room Air
--- NOTE | 2022-04-04 08:42 | Discharge Summary ---
Date of Service April 04, 2022 Admission HPI Per Admitting Provider Patient is 81-year-old male with PMH HTN, dyslipidemia, CAD s/p stent, BPH, GERD, MARYCARMEN, lumbar degenerative disc disease with spinal stenosis with cauda equina syndrome s/p L2-L5 decompression presented to ER with complaint of nausea and vomiting x 1 week. Chart reviewed. Patient admitted to [facility] 02/11/2022-02/13/2022 for lumbar radiculopathy with low back pain, lower extremity weakness urinary incontinence and retention. MRI lumbar spine showed multilevel stenosis, multilevel listhesis, severe cauda equina nerve compression. He had L2-L5 decompression by Dr. Mcleod on 02/11/22. Hospitalization [facility] 02/15/2023-02/25/2023 for back pain, lower extremity pain and weakness with several episodes of falling. Patient was participating with PT. Hospital course complicated by developing mottling of lower extremities, hypotension, hypoxemia, BRITTON. Patient found to have bilateral PEs, echo showed RV dysfunction from massive PE. He underwent mechanical thrombectomy with IR and IVC filter placement. Was treated with heparin and was transitioned to Eliquis on 02/21/2022. Patient had urinary retention while in hospital and had to have Rankin catheter replaced on 02/21/2022. He was discharged on dexameth asone until 02/27 and was discharged to [facility] rehab. Discharged home on 03/14/21. States since being home on 03/15/2021 had onset of dizziness with any movement of head and neck as well as with position change with associated nausea and vomiting. Describes dizziness as sensation "that he needs to hold on so he does not fall" with associated blurry vision. When he has his onset of dizziness he also reports onset of frontal headache that radiates posteriorly followed by nausea and several episodes of vomiting. No further visual issues once dizziness episodes resolved. Patient states typically after he vomits the headache resolves. PCP prescribed scopolamine patch which seemed to help for several days however 2 days ago with onset of recurrent dizziness, nausea vomiting again. Patient seen at [facility] ER on 03/18/2022 for nausea, vomiting, dizziness. CT head at that time with no acute intracranial findings. CT abdomen and pelvis with no acute infectious or inflammatory findings, no bowel obstruction. He was discharged home. Past 2 days with increased episodes of dizziness with position change, nausea, vomiting. Patient states has had approximately 8-9 episodes of vomiting in the last 24 hours. Patient states while in the rehab he had noted right upper extremity weakness compared to left. Patient with chronic bilateral foot drop. Patient states participated in physical therapy and is to have pending outpatient physical therapy as well. He had been ambulating throughout the house with the use of walker however the past several days has been sedentary secondary to dizziness and nausea and vomiting. Chronic neuropathy bilateral feet. Denies any new paresthesias. cardiology follow-up with [facility] cardiology on 03/20/2022. No medication changes were made. Has Rankin catheter in place secondary to urinary retention during admission at [facility]. Thinks last had Rankin catheter changed on 03/11/2022. reports patient is to have catheter removed on 04/07/2022. Patient has ultrasound scheduled for follow-up of renal mass. Denies fever/chills, diaphoresis, hematemesis, melena, hematochezia, syncope, LOC vision loss, diplopia, neck pain, CP, SOB, orthopnea, palpitations, cough, sore throat, choking, otalgia, rhinorrhea, abdominal pain, extremity edema, rashes, urinary symptoms. 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 He appeared well. Non toxic. Sitting in bed. Breathing comfortably on room air, no wheezing/rhonchi/rales Discharge Data Allergies Allergy/AdvReac Type Severity Reaction Status Date / Time Sulfa (Sulfonamide Allergy Intermediate rash Verified 03/23/22 16:15 Antibiotics) Consultations 03/23/22 16:36 ED Decision to Admit Stat 03/23/22 19:27 Consult Neurology Routine 03/27/22 14:53 Consult Gastroenterology Routine 03/31/22 16:10 Consult Orthopedic Surgery Routine 04/02/22 13:30 Burn CD for patient Routine Ordered Studies 03/23/22 13:05 CT Abd and Pelvis [CT abd pelvis IV con only] Stat 03/23/22 15:18 MRI Brain [MR brain wo con] Stat 03/24/22 09:07 CTA head w con [CT angio head w con] Urgent CTA neck with con [CT angio neck with con] Urgent 04/01/22 11:01 CT lumbar spine wo con Routine 04/02/22 01:02 MR lumbar spine wo/w con Routine Hospital Course (1) CVA (cerebral vascular accident): (2) Fluid collection at surgical site: Plan 81-year-old male with PMH of HTN, HLD, CAD status post stent, BPH, GERD, MARYCARMEN, lumbar degenerative disc disease with spinal stenosis with cauda equina syndrome status post L2-L5 decompression on 02/11/22 presented to the ED 03/23/22 with complaint of nausea and vomiting for 1 week [employer]. Of note, patient was hospitalized at [facility] 02/15/22 to 02/25/2022 for back pain, LE pain and weakness with several episodes of falling. Hospital course was complicated by developing mottling of lower extremities, hypotension, hypoxemia, BRITTON and patient found to have bilateral PEs when ECHO showed RV dysfunction from massive PE. He underwent mechanical thrombectomy with IR and IVC filter placement. Patient was initially treated with heparin and transition to Eliquis on 02/21/2022. Patient had urinary retention while in hospital and had to have Rankin catheter placed on 02/21/2022. [facility] and then discharged to home on 03/14/2021. Pt stated - since being home on 03/15/2021 had onset of dizziness with any movement of head and neck as well as with position change with associated nausea and vomiting. Dizziness: Intractable nausea and vomiting: CVA (cerebral vascular accident): Patient presents with dizziness, nausea, vomiting [see above] Admitting CTAP: No acute finding, 1.8 cm right renal lesion suggestive of RCC again noted. He will need outpatient follow up for further evaluation. Admitting MRI brain: Few tiny subcentimeter foci of restricted diffusion within the centrum semiovale frontoparietal junctions compatible with acute to subacute watershed lacunar infarcts. Chronic lacunar infarcts of the cerebellum noted. 03/24 CTA head and neck: No significant stenosis/occlusion/dissection within the carotid or vertebral arteries. 03/24 echo: Ejection fraction 60 to 65%, normal LV wall thickness and systolic function. Right ventricle is normal in size and function. Neurology evaluated. Long-term SBP goal of less than 130, recommends ENT consult if dizziness persist. Continue with Plavix, Eliquis, statin. LDL 37 and A1c 5.4 this admission. GI evaluated, appreciate recs. If with persistent N/V, pt will benefit from following up with GI as outpatient along with his neurology follow up. Post op Fluid collection -Concern that this may be contributing to patient's ongoing nausea/vomiting/dizziness -Again seen on repeat CT Lumbar spine 04/01 and MRI Lumbar spine 04/02. Fluid collection enlarged -Case was discussed with patient's neurosurgeon, Dr Mcleod, 04/02 and he has been accepted for transfer to [facility] for further evaluation. Urinary retention: Catheter associated UTI: Rankin was present on admission Urine Culture positive for Staph epidermidis History of BPH, urinary retention. Has current Rankin catheter in place. Rankin last changed 03/11/2022 per family To have outpatient urology follow-up with [facility] urology nurse for Rankin removal on 04/07/2022. Since he will going back to [facility], would recommend follow up there and void trial if appropriate Received 7 days ceftriaxone while here History of Pulmonary embolus: Found to have bilateral PEs during hospitalization at [facility] in 01/2022. S/P mechanical thrombectomy with IR and IVC filter placement. On Eliquis Other chronic medical conditions: CAD status post stent, HTN, MARYCARMEN [not using BiP AP] Possible renal cell carcinoma: Noted on admitting CTAP [see above], patient states he is scheduled to have outpatient follow-up imaging for renal lesion, patient to follow-up with urology/oncology as an outpatient. DVT prophylaxis: On Eliquis Full code Patient was accepted for transfer to [facility] on 04/02 and remained here until 04/04 awaiting bed and transportation. Total Time Total Time Spent Total Time Spent (In Minutes): 45 Discharge Plan Discharge Items Patient Disposition: Transfer Acute Care Hospital Reason For Visit: NAUSEA, VOMITING Discharge Diagnosis: Intractable nausea vomiting Post operative fluid collection Dizziness Acute to subacute frontoparietal lacunar infarct Condition on Discharge: Fair Activity: Resume your previous activity Non-emergency contact: Primary Care Provider and Surgeon Call non-emergency contact if: you have any medication questions Follow-up/Referrals: Chidi Steele DO [Primary Care Provider] - Diet: Heart Healthy and Low Sodium (2gm) Diet Comment: NPO after midnight for sugery 04/04/22 Addtl Attending Provider Instructions: Accepting physician Dr Mcleod Last dose of Elquis and Plaix 04/03/22 at 8:30 am NPO after midnight Anticipated OR 04/24/22 Pending Studies at Discharge: No Stand-Alone Forms: My [facility], Medications to Prevent Stroke Skilled Items Patient informed of condition?: Yes DNR: No Discharge Level of Care: Other Communicable Disease: No Discharge Prognosis: Stable Lines: Peripheral IV Urinary Catheter: Yes Medications and DC Order Prescriptions: New docusate sodium 100 mg Capsule 100 mg PO BID 7 Days Qty: 14 0RF polyethylene glycol 3350 [Miralax] 17 gram Powder In Packet 17 g PO DAILY Qty: 14 0RF Advanced Probiotic 625 mg (10 billion cell) Capsule 2 cap PO DAILY 7 Days Qty: 14 0RF Continued nitroglycerin 0.4 mg tablet, sublingual 0.4 mg SL Q5M PRN (Reason: chest pain) Qty: 25 duloxetine 60 mg capsule,delayed release(DR/EC) 60 mg PO QAM metoprolol succinate 25 mg tablet extended release 24 hr 25 mg PO QAM Qty: 90 amoxicillin 500 mg capsule 2,000 mg PO DIRECTED PRN (Reason: DENTAL APPOINTMENTS) multivitamin [Daily Multi-Vitamin] tablet 1 tab PO QAM pantoprazole 40 mg Tablet,Delayed Release (Dr/Ec) 40 mg PO QAM finasteride 5 mg tablet 5 mg PO QAM clopidogrel 75 mg tablet 75 mg PO QAM melatonin 3 mg Tablet 3 mg PO HS scopolamine base 1 mg over 3 days Patch 3 Day 1 patch TRANSDERMAL Q3D PRN (Reason: NEEDED) Eliquis 5 mg tablet 5 mg PO BID ondansetron 4 mg tablet,disintegrating 4 mg PO Q8H PRN (Reason: nausea and vomiting) Qty: 30 0RF atorvastatin 40 mg tablet 40 mg PO HS Discontinued acetaminophen [Tylenol Extra Strength] 500 mg tablet 500 mg PO AMHS tizanidine 4 mg tablet 4 mg PO DIRECTED PRN (Reason: MUSCLE SPASMS) lisinopril 5 mg tablet 5 mg PO QAM diclofenac sodium [Voltaren] 1 % Gel 2 g TOPICAL QID Discharge Orders: Discharge Order (Routine); Ordered 04/03/22 Ordered By: Casandra Matthew Admission Data Admit Date/Time: 03/23/22 18:03 Attending Provider: Casandra Matthew Admit Provider: Ricky Geiger Primary Care Provider: Chidi Steele Other Providers: Ricky Geiger ; James Inman ; Nae Moise [facility] ; [place] ; Marci Beaver ; [facility] ; Ovidio Mejia ; Umu Fuentes Other Interventions: *Nursing Shift Assessment Last Done: 04/03/22 19:45
== END 2022-04-04 08:42 | disposition short-term general hospital (02) | DRG 65 ==
LOC: ED 12:32 → SUATTDRO 18:03 → 2S 18:03